=== PATIENT | male | born 1960 | race Caucasian/White ===

== ENCOUNTER → 2019-06-10 09:53 | Outpatient (CLI) | payer OTHER, SELFPAY ==
--- NOTE | 2019-06-10 09:55 | DI.RAD.S_ITS ---
PROCEDURE: XR LUMBAR SPINE 2-3V INDICATIONS: Pain TECHNIQUE: 2 views of the lumbar spine were acquired. COMPARISON: [facility], , -SPINE 2-3 VIEWS, 05/20/2010, 17:41. FINDINGS: Bones: 5 [id number] vertebrae are present. There is normal bony alignment. No vertebral body compression fractures. Severe degenerative changes are present throughout the mid and lower lumbar spine including intervertebral disc space narrowing, endplate sclerosis, osteophytosis, and facet sclerosis. The extensive degenerative disease is increased when compared with the prior film dated 05/20/10. No suspicious bony lesions. Soft tissues: Overlying bowel gas pattern is unremarkable. There are scattered atheromatous calcifications of the abdominal aorta which is increased in extent when compared with the prior study. IMPRESSION: 1. Interval degenerative changes within the lumbar spine when compared with the study from 2009. 2. Interval progression of aortic atherosclerosis when compared with the prior study. Dictated by: Ana Perales M.D. on 06/10/2019 at 13:20 Approved by: Ana Perales M.D. on 06/10/2019 at 13:22
--- NOTE | 2019-06-10 09:55 | DI.RAD.S_ITS ---
PROCEDURE: XR HIP W PEL IF DONE LT MIN 4V INDICATIONS: Pain TECHNIQUE: AP pelvis with lateral view(s) of the bilateral hip(s). COMPARISON: None. FINDINGS: Bones: No fractures or dislocations. Pelvic ring appears intact. No suspicious bony lesions. Soft tissues: The visualized bowel gas pattern is normal. No suspicious soft tissue calcifications. There are scattered atheromatous calcifications. IMPRESSION: No acute radiographic findings. If there is continued pain, followup exam or additional imaging such as MRI or CT could be performed for further assessment. Dictated by: Ana Perales M.D. on 06/10/2019 at 13:22 Approved by: Ana Perales M.D. on 06/10/2019 at 13:22
== END ==
PROVIDERS: PCP Family Medicine; Visit Provider Family Medicine
DX: M54.5 Low back pain (principal); M51.36 Other intervertebral disc degeneration, lumbar region; M25.559 Pain in unspecified hip
CPT/HCPCS: 72100; 73522

== ENCOUNTER → 2019-06-18 17:20 | Outpatient (CLI) | payer OTHER, SELFPAY ==
--- NOTE | 2019-06-18 17:24 | DI.MRI.S_ITS ---
PROCEDURE: MR HEAD/BRAIN WO CON INDICATIONS: Syncope TECHNIQUE: Noncontrast axial T1 spin echo, axial T2 fast spin echo, sagittal and axial FLAIR, coronal T2 fast spin echo, axial gradient echo, axial diffusion and ADC through the brain. COMPARISON: None. FINDINGS: Image quality: Excellent. CSF Spaces: Basal cisterns are patent. No extra-axial fluid collections. Ventricles are normal in size and shape. Brain: No intracranial masses or hemorrhage. Cramer/white matter interface is normal. Brainstem appears normal. Diffusion-weighted images demonstrate no acute ischemic insult. No chronic ischemic insults. Normal intravascular flow voids are present. Skull and face: Calvarium has normal marrow signal. Orbits appear normal. Sinuses: Sinuses and mastoids are clear. IMPRESSION: Normal for age, source of current syncopal symptoms is not seen. Dictated by: Ja Sanchez M.D. on 06/19/2019 at 9:21 Approved by: Ja Sanchez M.D. on 06/19/2019 at 9:22
== END ==
PROVIDERS: PCP Family Medicine; Visit Provider Family Medicine
DX: R55 Syncope and collapse (principal)
CPT/HCPCS: 70551

== ENCOUNTER → 2019-12-08 10:00 | Outpatient (CLI) | payer OTHER, SELFPAY ==
[2019-12-08 11:14] LABS: Blood Urea Nitrogen 18 mg/dL (9-20); Estimated Glomerular Filt Rate > 60.0 mL/min (>60); Magnesium 2.3 mg/dL (1.6-2.3)
== END ==
PROVIDERS: PCP Family Medicine; Visit Provider Family Medicine
DX: I10 Essential (primary) hypertension (principal)
CPT/HCPCS: 36415; 82565; 83735; 84520

== ENCOUNTER 2020-08-02 12:35 | Emergency (ER) | payer OTHER, SELFPAY ==
[2020-08-02 12:44] VITALS: BP 170/95; PULSE 72; RESP 18; TEMP 37; O2SAT 96
[2020-08-02 13:26] VITALS: PULSE 68; RESP 14; O2SAT 98
[2020-08-02 13:30] VITALS: PULSE 63; RESP 18; O2SAT 97
[2020-08-02 13:44] LABS: Add Manual Diff / Slide Review NO; Basophils Absolute Auto 0 /uL (0-100); Basophils Percent Auto 0.4 % (0-2); Eosinophils Absolute Auto 300 /uL (0-450); Eosinophils Percent Auto 4.1 % (2-4); Hematocrit 45.2 % (41-53); Hemoglobin 15.3 g/dL (13.5-17.5); Lymphocytes Absolute Auto 1200 /uL (1100-4500); Lymphocytes Percent Auto 18.3 % (25-40); Mean Corpuscular HGB Conc 33.8 % (30-36); Mean Corpuscular Hemoglobin 31.9 PG (26-34); Mean Corpuscular Volume 94.5 fL (80-100); Monocytes Absolute Auto 400 /uL (0-900); Monocytes Percent Auto 5.6 % (3-14); Neutrophils Absolute Auto 4600 /uL (1500-7000); Neutrophils Percent Auto 71.6 % (50-75); Platelet Count 199 X10^3/uL (150-400); Red Blood Cell Count 4.79 X10^6/uL (4.5-5.9); Red Cell Distribution Width 12.8 % (11.6-14.8); White Blood Cell Count 6.5 X10^3/uL (4.5-11.0)
[2020-08-02 13:54] LABS: Prothrombin Time 11.9 SECONDS (10.1-12.7)
[2020-08-02 13:56] LABS: PTT Partial Thromboplastin Tim 32 SECONDS (26.4-36.2)
[2020-08-02 13:58] LABS: Alanine Aminotransferase 22 IU/L (<50); Albumin 4.8 g/dL (3.5-5.0); Albumin Globulin Ratio 1.4 (1.0-2.8); Alkaline Phosphatase 56 U/L (38-126); Aspartate Aminotransferase 28 IU/L (17-59); BUN Creatinine Ratio 18.6 (6-22); Bilirubin Total 0.6 mg/dL (0.2-1.3); Blood Urea Nitrogen 16 mg/dL (9-20); Calcium 9.9 mg/dL (8.4-10.2); Carbon Dioxide 26 mmol/L (22-32); Chloride 103 mmol/L (98-107); Estimated Glomerular Filt Rate > 60.0 mL/min (>60); Globulin 3.5 g/dL (1.7-4.1); Glucose 89 mg/dL (80-110); HEMOLYSIS < 15 (0-50); Potassium 4.3 mmol/L (3.4-5.1); Sodium 140 mmol/L (137-145); Total Protein 8.3 g/dL (6.3-8.2)
[2020-08-02 14:00] VITALS: PULSE 67; O2SAT 97
--- NOTE | 2020-08-02 14:27 | ED.GIBLEED ---
HPI - GI Bleed General Chief complaint: GI Bleed Stated complaint: Blood in Stool Time Seen by Provider: 08/02/20 13:57 Source: patient Mode of arrival: Ambulatory Limitations: no limitations History of Present Illness HPI Narrative: The patient had bright red blood with a bowel movement prior to arrival here. He describes bright blood on the outside of the formed bowel movement. He did not have constipation. He did not have ongoing bleeding after having the bowel movement. He has no rectal pain. He has a prior history of PUD and upper GI bleed. He is familiar with melena. He has no such concern today. He has no abdominal pain. He denies weakness or dizziness. He does have a prior history of hemorrhoids. Related Data Home Medications Medication Instructions Recorded Confirmed clobetasol 0.05 % topical ointment 1 applictn TOP DAILY PRN 10/21/19 12/08/19 Previous Rx's Medication Instructions Recorded lisinopril 10 mg tablet 20 mg PO DAILY #180 tab 12/08/19 meloxicam 15 mg tablet 15 mg PO DAILY #90 tab 05/31/20 omeprazole 20 mg tablet,delayed 20 mg PO DAILY #90 tab 06/21/20 release zolpidem 12.5 mg tablet,extended 12.5 mg PO BEDTIME PRN #30 tab 06/29/20 release,multiphase Allergies Allergy/AdvReac Type Severity Reaction Status Date / Time latex [LATEX] Allergy Severe ANAPHYLACTIC Verified 08/02/20 12:50 PROLONGED EXPOSURE polyvinyl chloride (PVC) Allergy Unknown SKIN RASH Verified 08/02/20 12:50 [POLYVINYL CHLORIDE (PVC)] W PROLONGED EXPOSURE Review of Systems Review of Systems ROS Unobtainable: All systems reviewed & are unremarkable except as noted in HPI and below Constitutional Constitutional: Denies body ache(s), Denies chills, Denies fatigue and Denies fever(s) ENT Ears, Nose, Mouth, and Throat: Denies dizziness Comments: No complaints Cardiovascular Cardiovascular: Denies chest pain and Denies dyspnea Respiratory Respiratory: Denies cough, Denies dyspnea and Denies wheezing Gastrointestinal Gastrointestinal: Denies abdominal pain, Denies change in bowel habits, Denies diarrhea, Denies nausea and Denies vomiting Comments: GI bleeding as discussed in HPI. Genitourinary Comments: No genital pain. No dysuria or urgency. Musculoskeletal Musculoskeletal: Denies back pain and Denies numbness Integumentary/Breasts Skin/Breast: Denies pruritus, Denies erythema, Denies rash and Denies wounds Neurologic Neurologic: Denies confusion, Denies dizziness and Denies numbness Psychiatric Psychiatric: Denies confusion Endocrine Endocrine: Denies fatigue Allergic/Immunologic Allergic/Immunologic: Denies wheezing Patient History Medical History Carpal tunnel syndrome (Chronic ~1993) Foot pain (Chronic ~2009) Osteoarthritis (Chronic) PUD (peptic ulcer disease) (Acute) Surgical History Anesthesia (Resolved) S/P laparoscopic surgery (Resolved ~08/2014) Family History Father Heart disease Grandfather No problems noted. Social History Smoking Status: Former smoker Smoking Status: Former smoker alcohol intake frequency: 0-2 drinks per day Substance Use Type: marijuana Exam Initial Vital Signs Initial Vital Signs: Vital Signs Temperature 98.6 F 08/02/20 12:44 Pulse Rate 72 08/02/20 12:44 Respiratory Rate 18 08/02/20 12:44 Blood Pressure 170/95 H 08/02/20 12:44 Pulse Oximetry 96 08/02/20 12:44 Const General: cooperative and well developed Nutritional Appearance: well nourished Resp Effort & Inspection: normal respiratory effort and able to speak in complete sentences Auscultation: clear to auscultation bilaterally, no rales, no rhonchi and no wheezes Cardio Rate: regular rate Rhythm: regular rhythm Heart Sounds: S1 normal, S2 normal, no click, no gallops, no murmurs and no rubs Pulses: normal peripheral pulses GI Inspection: non-distended Palpation: soft, no hepatosplenomegaly, No guarding, No pulsatile mass and No tender Auscultation: normal bowel sounds Rectal Exam: fissure (Perianal erythema with 2 shallow fissures. ) Other: No palpable internal hemorrhoids. Prostate is normal. Stool from the rectum is formed and without blood. Course Course Course Narrative: The patient has a perianal dermatitis, likely attributing to 2 shallow fissures. I recommended [id number] antifungal cream after thorough wash insight. I recommend he recheck with his doctor over the next several days. Orders Ordered: ED Orders 08/02/20 13:19 EKG-12 Lead Stat 08/02/20 13:25 Complete Blood Count AUTO DIFF Stat Comprehensive Metabolic Panel Stat Partial Thromboplastin Time Stat Prothrombin Time INR Stat Vital Signs Vital signs: Vital Signs - 8 hr 08/02/20 12:44 08/02/20 13:26 08/02/20 13:30 Temperature 98.6 F Pulse Rate 72 68 63 Respiratory Rate 18 14 18 Blood Pressure 170/95 H Pulse Oximetry 96 98 97 08/02/20 14:00 08/02/20 14:37 08/02/20 14:43 Temperature Pulse Rate 67 74 Respiratory Rate 16 Blood Pressure 156/96 H 156/96 H Pulse Oximetry 97 98 MDM - GI Bleed Lab Data Result diagrams: 08/02/20 13:25 08/02/20 13:25 Labs: Lab Results 08/02/20 08/02/20 08/02/20 Range/Units 13:25 13:25 13:25 WBC 6.5 (4.5-11.0) X10^3/uL RBC 4.79 (4.5-5.9) X10^6/uL Hgb 15.3 (13.5-17.5) g/dL Hct 45.2 (41-53) % MCV 94.5 (80-100) fL MCH 31.9 (26-34) PG MCHC 33.8 (30-36) % RDW 12.8 (11.6-14.8) % Plt Count 199 (150-400) X10^3/uL Neut % (Auto) 71.6 (50-75) % Lymph % (Auto) 18.3 L (25-40) % Williamson % (Auto) 5.6 (3-14) % Eos % (Auto) 4.1 H (2-4) % Baso % (Auto) 0.4 (0-2) % Neut # (Auto) 4600 (8373-0573) /uL Lymph # (Auto) 1200 (1473-0804) /uL Williamson # (Auto) 400 (0-900) /uL Eos # (Auto) 300 (0-450) /uL Baso # (Auto) 0 (0-100) /uL PT 11.9 (10.1-12.7) SECONDS INR 1.0 (0.9-1.3) APTT 32 (26.4-36.2) SECONDS Sodium 140 (137-145) mmol/L Potassium 4.3 (3.4-5.1) mmol/L Chloride 103 (98-107) mmol/L Carbon Dioxide 26 (22-32) mmol/L BUN 16 (9-20) mg/dL Creatinine 0.86 (0.66-1.25) mg/dL Estimated GFR > 60.0 (>60) mL/min BUN/Creatinine Ratio 18.6 (6-22) Glucose 89 (80-110) mg/dL Calcium 9.9 (8.4-10.2) mg/dL Total Bilirubin 0.6 (0.2-1.3) mg/dL AST 28 (17-59) IU/L ALT 22 (<50) IU/L Alkaline Phosphatase 56 (38-126) U/L Total Protein 8.3 H (6.3-8.2) g/dL Albumin 4.8 (3.5-5.0) g/dL Globulin 3.5 (1.7-4.1) g/dL Albumin/Globulin Ratio 1.4 (1.0-2.8) Urine Dip Bedside Urine Glucose Negative Bedside Urine Bilirubin - Negative Bedside Urine Ketone - Negative Urine Specific [place] 1.005 Bedside Urine Occult Blood - Negative Bedside Urine pH 6.5 Bedside Urine Protein - Negative Bedside Urine Urobilinogen - Negative Bedside Urine Nitrite - Negative Bedside Urine Leukocytes - Negative Esterase Discharge Plan Departure Patient Disposition: Home Clinical Impression: Perianal dermatitis, Anal fissure Discharge Date/Time: 08/02/20 14:45 Instructions: Anal Fissure Activity Restrictions/Additional Instructions: You actually have 2 shallow anal fissures, but she also have a area of inflammation the perianal region. Clotrimazole is an [id number]-zophhea antifungal cream. Apply this 2 times daily after cleaning the area thoroughly. You may stop the medication after confident the site has improved. Follow-up with your doctor in about 10 days to re-evaluate, return the ER if he of substantial increased bleeding. Prescriptions: No Action meloxicam 15 mg tablet 15 mg PO DAILY Qty: 90 RF: 1 omeprazole 20 mg tablet,delayed release (DR/EC) 20 mg PO DAILY Qty: 90 RF: 3 zolpidem 12.5 mg tablet,ext release multiphase 12.5 mg PO BEDTIME PRN (Reason: insomnia) Qty: 30 RF: 1 clobetasol 0.05 % ointment 1 applictn TOP DAILY PRN (Reason: skin irritation) RF: 0 lisinopril 10 mg tablet 20 mg PO DAILY Qty: 180 RF: 3 Referrals: Dixon Hancock MD [Primary Care Provider] -
[2020-08-02 14:37] VITALS: BP 156/96
[2020-08-02 14:43] VITALS: BP 156/96; PULSE 74; RESP 16; O2SAT 98
== END 2020-08-02 14:45 | disposition home or self-care (01) ==
PROVIDERS: Emergency Provider Emergency Medicine; PCP Family Medicine
DX: K60.2 Anal fissure, unspecified (principal); L30.8 Other specified dermatitis
CPT/HCPCS: 36415; 80053; 81003; 85025; 85610; 85730; 93005; 93010; 99283; 99284

== ENCOUNTER → 2020-10-20 16:43 | Outpatient (CLI) | payer OTHER, SELFPAY ==
--- NOTE | 2020-11-09 07:57 | PM.CARDMON.1 ---
Licensed Massage Therapist Report Referral & Results Date Patient Seen: 10/20/20 Requesting provider: Dixon Hancock Indication: Syncope Duration of monitoring (days): 6 Diary information: There were no patient triggered events or diary entries for review Data: Minimum heart rate identified was 46 beats per minute at 00:31 on 10/23/2020 Maximum sinus heart rate was 143 beats per minute at 08:57 on 10/26/2020 Maximum overall heart rate was 200 beats per minute at 13:16 on 10/22/2020 during a run of SVT that was 4 beats in duration Less than 1% of identified beats or either ventricular supraventricular ectopic in origin There was 1 run of nonsustained monomorphic ventricular tachycardia that was 4 beats in duration at a rate of 182 beats per minute There 6 runs of SVT/atrial tachycardia the fastest being the 4 beat run at 200 beats per minute as above, the longest lasting 25.3 seconds at a rate of 107 beats per minute, which suggest more atrial tachycardia than true SVT No pauses Impression: Patient with various minor dysrhythmias as above including a single 4 beat run of nonsustained ventricular tachycardia. Also very short runs of SVT. No clear etiology for syncope identified on this study although there were no patient events to correlate with any potential dysrhythmia. Clinical correlation suggested
== END ==
PROVIDERS: Family Provider Family Medicine; PCP Family Medicine; Referring Provider Family Medicine; Visit Provider Family Medicine
DX: R55 Syncope and collapse (principal)
CPT/HCPCS: 0296T; 0298T

== ENCOUNTER → 2020-10-28 12:51 | Outpatient (CLI) | payer OTHER, SELFPAY ==
--- NOTE | 2020-10-28 12:54 | DI.MRI.S_ITS ---
PROCEDURE: MR LUMBAR SPINE WO CON INDICATIONS: increasing low back pain, leg numbness and tingling TECHNIQUE: Noncontrast sagittal T1 spin echo and T2 fast echo, sagittal STIR, axial T1 and T2 fast spin echo through the lumbar spine. In cases with scoliosis, additional coronal T2 fast spin echo may be performed. COMPARISON: [facility], MR, L-SPINE WITHOUT CONTRAST, 07/31/2014, 19:38. [facility], CR, XR LUMBAR SPINE 2-3V, 06/10/2019, 9:57. FINDINGS: Image quality: Excellent. Alignment and Curvature: There is normal bony alignment. Mild convex right curvature of the thoracolumbar spine is stable compared to prior plain film radiographs. Bone Marrow: Reactive endplate changes noted adjacent to the L3-L4, L4-L5 and L5-S1 discs. No acute vertebral body compression fractures. Spinal Cord: Conus medullaris terminates at the L1 level. Visualized cord demonstrates normal signal and size. Paraspinous Soft Tissues: No paravertebral masses. L1-L2: Loss of disc signal. Mild, diffuse disc bulge. Mild narrowing of the central canal. Mild bilateral neural foraminal narrowing. No neural compression. L2-L3: Loss of disc signal. Mild, diffuse disc bulge. Mild bilateral facet hypertrophy. Mild to moderate narrowing of the central canal. Right foraminal disc protrusion. Severe right neural foraminal narrowing secondary to disc protrusion with compression of the exiting right L2 nerve root. Mild left neural foraminal narrowing. L3-L4: Loss disc signal. Mild, diffuse disc bulge. Mild bilateral facet hypertrophy. Mild to moderate narrowing of the central canal. Moderate bilateral neural foraminal narrowing. No neural compression. Fissures noted in the posterior and anterior annulus. L4-L5: Loss of disc signal and height. Moderate, diffuse disc bulge. Mild bilateral facet hypertrophy. Moderate narrowing of the central canal. Right foraminal disc protrusion. Severe right neural foraminal narrowing with compression of the exiting right L4 nerve root. Moderate left neural foraminal narrowing. Fissures noted in the posterior and anterior annulus. L5-S1: Loss of disc signal and height. Mild, diffuse disc bulge. Mild bilateral facet hypertrophy. Mild narrowing of the central canal. Moderate right and mild left neural foraminal narrowing. No neural compression. Fissures noted in the posterior annulus. IMPRESSION: 1. Multilevel degenerative disc disease. 2. Multilevel facet arthropathy. 3. Moderate L4-L5 central canal narrowing. 4. Severe right L2-L3 and L4-L5 neural foraminal narrowing with compression of the exiting right L2 nerve root in the exiting right L4 nerve root. 5. L3-L4, L4-L5 and L5-S1 disc annulus fissures. Dictated by: Araceli Sorto MD, PhD on 10/28/2020 at 16:47 Approved by: Araceli Sorto MD, PhD on 10/28/2020 at 17:18
--- NOTE | 2020-10-28 12:54 | DI.US.S_ITS ---
PROCEDURE: US CAROTID DOPPLER BI INDICATIONS: Syncope TECHNIQUE: Color and pulse Doppler interrogation was performed of both carotid systems, with image documentation and velocity measurements. COMPARISON: None. FINDINGS: Stenosis calculations are based on SRU (Society of Radiologists in Ultrasound) criteria. Right side: Brachial blood pressure: 127/78 mm Hg. Common carotid artery peak systolic velocity: 127 cm/sec (prior 105 cm/s). Internal carotid artery peak systolic velocity: 114 cm/sec (prior 101 cm/s). Internal carotid artery end diastolic velocity: 31 cm/sec (prior 20 cm/s). External carotid artery peak systolic velocity: 169 cm/sec (prior 131 cm/s). ICA/CCA peak systolic ratio: 0.9 (prior 0.96). Cramer scale imaging description: Mild atherosclerotic changes are seen. Percent internal carotid artery stenosis: Less than 50% by velocity criteria Vertebral artery: Flow direction is antegrade. Left side: Brachial blood pressure: 131/76 mm Hg. Common carotid artery peak systolic velocity: 189 cm/sec (prior 128 cm/s). Internal carotid artery peak systolic velocity: 131 cm/sec (prior 105 cm/s). Internal carotid artery end diastolic velocity: 33 cm/sec (prior 35 cm/s). External carotid artery peak systolic velocity: 198 cm/sec (prior 117 cm/s). ICA/CCA peak systolic ratio: 0.7 (prior 0.82). Cramer scale imaging description: Moderate atherosclerotic changes are seen. Percent internal carotid artery stenosis: 50-69% by velocity criteria Vertebral artery: Flow direction is antegrade. IMPRESSION: By velocity criteria, there is a moderate stenosis (between 50 and 69% stenosis) within the left proximal internal carotid artery. The true degree of stenosis is felt most likely to be at the lower end of this range. There is also a greater than 50% stenosis involving the origin of the left external carotid artery by velocity criteria. Dictated by: Roderick Barriga M.D. on 10/28/2020 at 14:13 Approved by: Roderick Barriga M.D. on 10/28/2020 at 14:15
--- NOTE | 2020-10-28 12:54 | DI.MRI.S_ITS ---
PROCEDURE: MR CERVICAL SPINE WO CON INDICATIONS: neck pain TECHNIQUE: Noncontrast sagittal T1 spin echo and T2 fast spin echo, sagittal STIR, foraminal oblique sagittal T2 fast spin echo, and axial gradient echo or T2 fast spin echo through the cervical spine. COMPARISON: None. FINDINGS: Image quality: Excellent. Alignment and Curvature: There is trace retrolisthesis of C4 on C5. Bone Marrow: Marrow demonstrates normal overall signal. Spinal Cord: Visualized spinal cord has normal size and signal. No cerebellar tonsillar herniation. Paraspinous Soft Tissues: No paravertebral masses. Prevertebral soft tissues are normal in thickness. Discs: Moderate desiccation is present throughout the cervical spine. C2-C3: No disc bulge, spinal stenosis or foraminal narrowing. C3-C4: Mild disc bulge with posterior central/right paracentral protrusion. There is indentation of the anterior thecal sac as well as minimal indentation of the anterior cord. Mild left and minimal right foraminal narrowing with uncovertebral hypertrophy. C4-C5: Mild disc bulge with moderate spinal stenosis. [id number] bilateral foraminal narrowing with uncovertebral hypertrophy. C5-C6: Mild disc bulge with moderate to severe spinal stenosis. Moderate to severe bilateral foraminal narrowing, left greater than right with uncovertebral hypertrophy. C6-C7: Mild disc bulge without spinal stenosis. [id number] left and mild right foraminal narrowing with uncovertebral hypertrophy. C7-T1: No disc bulge, spinal stenosis or foraminal narrowing. IMPRESSION: 1. Multilevel foraminal narrowing most notable at C5-6 secondary to uncovertebral arthropathy. 2. Multilevel spinal stenosis most notable at C4-5 and C5-6 secondary to disc bulge. Dictated by: Dara Trujillo M.D. on 10/28/2020 at 13:56 Approved by: Dara Trujillo M.D. on 10/28/2020 at 14:01
--- NOTE | 2020-10-28 12:54 | DI.ECHO.S_ITS ---
[facility] +---------+ : : [address] [place] : : : : [id number] : : : : Phone: [phone] Echocardiogram Report + + :Name: PREETHI MCCARTHY Study Date: 10/28/2020 Height: 74 in : :[facility] Weight: 211 lb : : Gender: Male BSA: 2.2 m2 : :: 1960 Age: 60 yrs BP: 127/78 mmHg: :Reason For Study: SYNCOPE : :Ordering Physician: LINA FLORESPerformed By: Lety Ruiz : :Referring: LINA FLORES : + + Interpretation Summary The left ventricle is normal in size and wall thickness. Left ventricular systolic function appears normal without focal wall motion abnormalities. The ejection fraction is estimated to be 60-65%. Diastolic parameters suggest probable normal left ventricular diastolic function and normal filling pressures. The right ventricle is normal in size and function. Pulmonary artery pressures cannot be estimated because of the lack of a measurable TR jet velocity but the IVC suggests a CVP of around 3 mmHg. The left atrial size is normal. Right atrial size is normal. There is no significant valvular heart disease. The aortic root is normal size. Procedure: A two-dimensional transthoracic echocardiogram with color flow and Doppler was performed. The study quality was technically adequate. The patient had an echocardiogram, but there is no comparison study available. The patient was in sinus rhythm with heart rates between 69-74 bpm during the exam. Left Ventricle: The left ventricle is normal in size and wall thickness. Left ventricular systolic function appears normal without focal wall motion abnormalities. The ejection fraction is estimated to be 60-65%. Diastolic parameters suggest probable normal left ventricular diastolic function and normal filling pressures. Right Ventricle: The right ventricle is normal in size and function. Atria: The left atrial size is normal. Right atrial size is normal. There is no Doppler evidence for an interatrial shunt. Mitral Valve: The mitral valve is normal in structure and function. There is trace mitral regurgitation. Aortic Valve: The aortic valve is trileaflet. The aortic valve opens well. There is no aortic valve stenosis. No aortic regurgitation is present. Tricuspid Valve: The tricuspid valve is normal in structure and function. There is trace tricuspid regurgitation. Pulmonary artery pressures cannot be estimated because of the lack of a measurable TR jet velocity but the IVC suggests a CVP of around 3 mmHg. Pulmonic Valve: The pulmonic valve leaflets are thin and pliable; valve motion is normal. There is no pulmonic valvular regurgitation. There is no significant valvular heart disease. Great Vessels: The aortic root is normal size. The ascending aorta is at the upper limits of normal in size. The IVC is of normal diameter and collapses greater than 50% with a sniff. This suggests a low right atrial pressure of 3 mm Hg. Pericardium/ Pleura There is no pericardial effusion. There is no pleural effusion. MMode/2D Measurements & Calculations LVIDd: 5.2 cm LVOT diam: 2.2 cm LVIDs: 3.3 cm Ao root diam: 3.5 cm FS: 36.7 % asc Aorta Diam: 3.4 cm EPSS: 1.3 cm Ao Arch Diam (Prox Trans): 3.0 cm IVSd: 0.86 cm LVPWd: 0.97 cm LV garcia. diameter/BSA (cm/m^2): 2.3 LV sys. diameter/BSA (cm/m^2): 1.5 LA A2 area: 16.5 cm2 RA long axis: 5.0 cm LA A4 area: 14.0 cm2 RA area: 15.2 cm2 LA length (vol): 4.6 cm RA vol: 39.5 ml LA vol: 43.0 ml RA : 17.8 ml/m2 LA vol index: 19.4 ml/m2 IVC diam: 0.61 cm RVD1 (basal): 3.2 cm TAPSE: 2.1 cm Doppler Measurements & Calculations Ao V2 max: 106.4 cm/sec LVOT Max Tevin: 102.6 cm/sec Ao V2 mean: 80.5 cm/sec LV V1 max P.2 mmHg Ao max P.5 mmHg LV V1 VTI: 20.4 cm Ao mean P.7 mmHg CHELSEA(I,D): 3.5 cm2 Ao V2 VTI: 21.7 cm CHELSEA(V,D): 3.6 cm2 sev ratio: 0.94 CHELSEA indexed to BSA (cm^2/m^2): 1.6 MV E max tevin: 81.4 cm/sec PA V2 max: 57.3 cm/sec MV A max tevin: 86.5 cm/sec PA V2 mean: 38.9 cm/sec MV E/A: 0.94 PA mean P.68 mmHg Med Peak E' Tevin: 8.0 cm/sec PA pr(Accel): 37.9 mmHg E/E' med: 10.2 Lat Peak E' Tevin: 10.5 cm/sec E/E' lat: 7.8 E/e' average: 9.0 MV dec time: 0.20 sec SV(OT): 76.5 ml Reading Physician:04:28 PM
== END ==
PROVIDERS: Family Provider Family Medicine; PCP Family Medicine; Referring Provider Family Medicine; Visit Provider Family Medicine
DX: R55 Syncope and collapse (principal); M54.5 Low back pain; M48.02 Spinal stenosis, cervical region; M47.812 Spondylosis without myelopathy or radiculopathy, cervical region; M50.221 Other cervical disc displacement at C4-C5 level; M51.36 Other intervertebral disc degeneration, lumbar region; M47.816 Spondylosis without myelopathy or radiculopathy, lumbar region; M48.061 Spinal stenosis, lumbar region without neurogenic claudication
CPT/HCPCS: 72141; 72148; 93306; 93880

== ENCOUNTER 2021-06-25 15:16 | Inpatient (IN) | payer OTHER, SELFPAY ==
[2021-06-25] VITALS (11 sets, daily range): BP systolic 130–159; BP diastolic 83–100; PULSE 77–104; RESP 16–23; TEMP 36.2–36.7; O2SAT 97–100; BMI 27.6; BMI 26.6
--- NOTE | 2021-06-25 16:03 | ED.GIBLEED ---
HPI - GI Bleed General Chief complaint: GI Bleed Stated complaint: Blood in Stool Time Seen by Provider: 06/25/21 15:32 History of Present Illness HPI Narrative: Male nonsmoker with history of high blood pressure, rectal bleeding prior duodenal ulcer presents with a chief complaint of a few days of difficulty with bowel movements followed by significant epigastric pain. He was on the toilet today trying to have a bowel movement and he finally did and it was black and tarry, dark and bloody. He had a brief syncopal episode while straining in presents to the ER under the circumstances. He denies any significant alcohol use. He denies any heavy use of NSAIDs. He is feeling fatigued and a bit lightheaded. He denies any shortness of breath, fever or chills Related Data Home Medications Medication Instructions Recorded Confirmed lisinopril 10 mg tablet 20 mg PO DAILY 06/25/21 06/25/21 pregabalin 225 mg capsule 225 mg PO TID 06/25/21 06/25/21 Previous Rx's Medication Instructions Recorded meloxicam 15 mg tablet 15 mg PO DAILY #90 tab 12/06/20 zolpidem 12.5 mg tablet,extended 12.5 mg PO BEDTIME PRN #90 tab 05/13/21 release,multiphase omeprazole 20 mg tablet,delayed 20 mg PO DAILY #90 tab 06/17/21 release Allergies Allergy/AdvReac Type Severity Reaction Status Date / Time latex [LATEX] Allergy Severe ANAPHYLACTIC Verified 02/11/21 16:03 PROLONGED EXPOSURE polyvinyl chloride (PVC) Allergy Unknown SKIN RASH Verified 02/11/21 16:03 [POLYVINYL CHLORIDE (PVC)] W PROLONGED EXPOSURE Review of Systems Review of Systems Narrative: GENERAL: See HP HEENT: Denies sinus pain, ear pain, sore throat, difficulty swallowing, dizziness. RESPIRATORY: Denies dyspnea, cough, wheezing, hemoptysis, sputum. CARDIOVASCULAR: Denies chest pain, palpitations, orthopnea, edema, GASTROINTESTINAL: See HPI : Denies dysuria, frequency, incontinence, hematuria, urinary retention. MUSCULOSKELETAL: denies weakness, joint pain, or bony pain SKIN: Denies rash, skin lesions, or other NEUROLOGIC: Denies weakness, headache, numbness, change in speech, confusion, seizures, incoordination. PSYCHIATRIC: No concerning psychosocial issues. 12 point review of systems is negative except for those stated above Patient History Medical History Carpal tunnel syndrome (~1993) Disc degeneration, lumbar Foot pain (~2009) Osteoarthritis Osteoarthritis of hand, left Other spondylosis with radiculopathy, lumbar region PUD (peptic ulcer disease) Rosacea Surgical History Anesthesia S/P laparoscopic surgery (~08/2014) Family History Father Heart disease Grandfather No problems noted. Social History Smoking Status: Former smoker Smoking Status: Former smoker alcohol intake frequency: holidays/special occasions only Substance Use Type: marijuana Exam Narrative Exam Narrative: GENERAL: [61] year old patient appears stated age. Well-developed patient, in mild distress. HEAD: Atraumatic. Normocephalic. EYES: Pupils equal round and reactive. Extraocular motions intact. No scleral icterus. No injection or drainage. ENT: Nose without bleeding, purulent drainage. Throat without erythema, tonsillar hypertrophy or exudate. Airway patent. NECK: Trachea midline. Non tender CARDIOVASCULAR: Regular rate and rhythm without murmurs, gallops, or rubs. RESPIRATORY: Clear to auscultation. Breath sounds equal bilaterally. No wheezes, rales, or rhonchi. GASTROINTESTINAL: Abdomen soft, tender in the epigastrium, nondistended. EXTREMITIES: No edema or joint tenderness. BACK: Nontender without deformity or crepitance. No flank tenderness. NEURO: AOx3. SKIN: No rash or erythema of visible areas Initial Vital Signs Initial Vital Signs: Vital Signs Temperature 97.1 F L 06/25/21 15:29 Pulse Rate 104 H 06/25/21 15:29 Respiratory Rate 16 06/25/21 15:29 Blood Pressure 134/91 H 06/25/21 15:29 Pulse Oximetry 99 06/25/21 15:29 Course Orders Ordered: ED Orders 06/25/21 15:55 Complete Blood Count AUTO DIFF Stat Comprehensive Metabolic Panel Stat cardiac panel [Troponin & CK Cardiac Panel] Stat 06/25/21 17:15 COVID19 - ADMIT (DIRECTOR EQUIPMENT swab/PCR) Stat Discontinued Medications Pantoprazole Sodium (Pantoprazole 40 Mg Vial) 80 mg IV NOW ONE Stop: 06/25/21 17:20 Last Admin: 06/25/21 17:24 Dose: 80 mg Documented by: LOURDES Consultations Consultation #1: Discussed with on-call General surgery Dr. Pollard, she is happy to provide consultation for the patient and agrees with our plan Consultation #2: Hospitalist happy to accept Vital Signs Vital signs: Vital Signs - 8 hr 06/25/21 15:29 06/25/21 15:58 06/25/21 16:00 Temperature 97.1 F L Pulse Rate 104 H 92 H 96 H Respiratory Rate 16 21 Blood Pressure 134/91 H 159/100 H Pulse Oximetry 99 99 99 06/25/21 16:02 06/25/21 16:30 06/25/21 17:00 Temperature Pulse Rate 93 H 87 81 Respiratory Rate 20 18 23 Blood Pressure 151/97 H 130/83 Pulse Oximetry 99 97 98 06/25/21 17:01 06/25/21 17:30 06/25/21 18:00 Temperature Pulse Rate 77 85 86 Respiratory Rate 23 22 19 Blood Pressure 149/92 H 143/90 H 151/90 H Pulse Oximetry 98 98 99 MDM - GI Bleed Lab Data Result diagrams: 06/25/21 15:55 06/25/21 15:55 Labs: Lab Results 06/25/21 06/25/21 06/25/21 Range/Units 15:55 15:55 15:55 WBC 13.5 H (4.5-11.0) X10^3/uL RBC 4.16 L (4.5-5.9) X10^6/uL Hgb 13.3 L (13.5-17.5) g/dL Hct 39.5 L (41-53) % MCV 94.8 (80-100) fL MCH 31.9 (26-34) PG MCHC 33.6 (30-36) % RDW 12.7 (11.6-14.8) % Plt Count 218 (150-400) X10^3/uL Neut % (Auto) 80.6 H (50-75) % Lymph % (Auto) 9.9 L (25-40) % [place] % (Auto) 8.9 (3-14) % Eos % (Auto) 0.4 L (2-4) % Baso % (Auto) 0.2 (0-2) % Neut # (Auto) 93189 H (6855-5013) /uL Lymph # (Auto) 1300 (4408-5650) /uL [place] # (Auto) 1200 H (0-900) /uL Eos # (Auto) 100 (0-450) /uL Baso # (Auto) 0 (0-100) /uL Sodium 138 (137-145) mmol/L Potassium 4.4 (3.4-5.1) mmol/L Chloride 105 (98-107) mmol/L Carbon Dioxide 25 (22-32) mmol/L BUN 36 H (9-20) mg/dL Creatinine 0.87 (0.66-1.25) mg/dL Estimated GFR > 60.0 (>60) mL/min BUN/Creatinine Ratio 41.4 H (6-22) Glucose 122 H (80-110) mg/dL Calcium 10.9 H (8.4-10.2) mg/dL Total Bilirubin 0.8 (0.2-1.3) mg/dL AST 19 (17-59) IU/L ALT 16 (<50) IU/L Alkaline Phosphatase 45 (38-126) U/L Total Creatine Kinase 77 (55-170) U/L CK-MB (CK-2) TNP CK-MB (CK-2) Rel Index TNP Troponin I < 0.012 (0.01-0.034) ng/mL Total Protein 7.1 (6.3-8.2) g/dL Albumin 4.1 (3.5-5.0) g/dL Globulin 3.0 (1.7-4.1) g/dL Albumin/Globulin Ratio 1.4 (1.0-2.8) SARS-CoV-2 (PCR) (Negative) 06/25/21 Range/Units 17:15 WBC (4.5-11.0) X10^3/uL RBC (4.5-5.9) X10^6/uL Hgb (13.5-17.5) g/dL Hct (41-53) % MCV (80-100) fL MCH (26-34) PG MCHC (30-36) % RDW (11.6-14.8) % Plt Count (150-400) X10^3/uL Neut % (Auto) (50-75) % Lymph % (Auto) (25-40) % [place] % (Auto) (3-14) % Eos % (Auto) (2-4) % Baso % (Auto) (0-2) % Neut # (Auto) (4688-8908) /uL Lymph # (Auto) (6066-4077) /uL [place] # (Auto) (0-900) /uL Eos # (Auto) (0-450) /uL Baso # (Auto) (0-100) /uL Sodium (137-145) mmol/L Potassium (3.4-5.1) mmol/L Chloride (98-107) mmol/L Carbon Dioxide (22-32) mmol/L BUN (9-20) mg/dL Creatinine (0.66-1.25) mg/dL Estimated GFR (>60) mL/min BUN/Creatinine Ratio (6-22) Glucose (80-110) mg/dL Calcium (8.4-10.2) mg/dL Total Bilirubin (0.2-1.3) mg/dL AST (17-59) IU/L ALT (<50) IU/L Alkaline Phosphatase (38-126) U/L Total Creatine Kinase (55-170) U/L CK-MB (CK-2) CK-MB (CK-2) Rel Index Troponin I (0.01-0.034) ng/mL Total Protein (6.3-8.2) g/dL Albumin (3.5-5.0) g/dL Globulin (1.7-4.1) g/dL Albumin/Globulin Ratio (1.0-2.8) SARS-CoV-2 (PCR) Negative (Negative) MDM Narrative Medical decision making narrative: Patient presents with epigastric pain, very concerning bowel movements involving a large amount of bright red blood as well as melenic type stool followed by syncopal episode. Patient has a known history of duodenal ulcer and a history of NSAIDs. Vital signs here have been stable and patient's initial H&H is unremarkable though patient has high likelihood of potential for rapid deterioration and will require admission for further evaluation and stabilization of his condition. Discharge Plan Departure Patient Disposition: Admitted as Observation Clinical Impression: Acute GI bleeding Admit Date/Time: 06/25/21 18:16 Admit Provider: Mack Patino
[2021-06-25 16:22] LABS: Add Manual Diff / Slide Review NO; Basophils Absolute Auto 0 /uL (0-100); Basophils Percent Auto 0.2 % (0-2); Eosinophils Absolute Auto 100 /uL (0-450); Eosinophils Percent Auto 0.4 % (2-4); Hematocrit 39.5 % (41-53); Hemoglobin 13.3 g/dL (13.5-17.5); Lymphocytes Absolute Auto 1300 /uL (1100-4500); Lymphocytes Percent Auto 9.9 % (25-40); Mean Corpuscular HGB Conc 33.6 % (30-36); Mean Corpuscular Hemoglobin 31.9 PG (26-34); Mean Corpuscular Volume 94.8 fL (80-100); Monocytes Absolute Auto 1200 /uL (0-900); Monocytes Percent Auto 8.9 % (3-14); Neutrophils Absolute Auto 10900 /uL (1500-7000); Neutrophils Percent Auto 80.6 % (50-75); Platelet Count 218 X10^3/uL (150-400); Red Blood Cell Count 4.16 X10^6/uL (4.5-5.9); Red Cell Distribution Width 12.7 % (11.6-14.8); White Blood Cell Count 13.5 X10^3/uL (4.5-11.0)
[2021-06-25 16:27] LABS: Alanine Aminotransferase 16 IU/L (<50); Albumin 4.1 g/dL (3.5-5.0); Albumin Globulin Ratio 1.4 (1.0-2.8); Alkaline Phosphatase 45 U/L (38-126); Aspartate Aminotransferase 19 IU/L (17-59); BUN Creatinine Ratio 41.4 (6-22); Bilirubin Total 0.8 mg/dL (0.2-1.3); Blood Urea Nitrogen 36 mg/dL (9-20); Calcium 10.9 mg/dL (8.4-10.2); Carbon Dioxide 25 mmol/L (22-32); Chloride 105 mmol/L (98-107); Estimated Glomerular Filt Rate > 60.0 mL/min (>60); Glucose 122 mg/dL (80-110); HEMOLYSIS < 15 (0-50); Potassium 4.4 mmol/L (3.4-5.1); Sodium 138 mmol/L (137-145); Total Protein 7.1 g/dL (6.3-8.2)
[2021-06-25 17:14] LABS: Creatine Kinase 77 U/L (55-170)
[2021-06-25] MEDS: PANTOPRAZOLE 40 MG VIAL 80 MG IV (17:24)
[2021-06-25 17:27] LABS: Troponin I < 0.012 ng/mL (0.01-0.034)
[2021-06-25 18:05] LABS: COVID19 - ADMIT (NP swab/PCR) Negative (Negative)
[2021-06-25 20:47] LABS: Procalcitonin 0.11 ng/mL (<0.5)
[2021-06-25 21:03] LABS: INR 1.2 (0.9-1.3); Prothrombin Time 13.4 SECONDS (10.1-12.7)
[2021-06-25] MEDS: PEG3350/SOD SULF,BICARB,CL/KCL 4,000 ML SOLUTION 2000 ML PO (21:34)
[2021-06-25] MEDS: SODIUM CHLORIDE 0.9% 1,000 ML 200 ML IV (21:37)
--- NOTE | 2021-06-25 21:47 | PM.HP.1 ---
History of Present Illness History of Present Illness Date Patient Seen: 06/25/21 Time Patient Seen: 21:40 Chief complaint: Syncope and GIB Narrative: Camacho Martin is a pleasant 61 y.o. 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 He has been having a hard time sleeping due to having pain in his mid-epigastric area. Last night he passed out and fell off othe toilet, he woke up and returned to bed. At 4:30 am, he woke up again and had a bloody bowel movement for which he took a photo of it with his phone. He went to clean up his first bowel movement and noted he had soiled against his wall and that it was also bloody. He states he is sweating, and has continued mild epigastric pain. He denies shortness of breath, chest pain, abdominal cramping, nausea or vomiting, or constipation. He states 10 years ago, he had a similar presentation and went to [facility]. He stated they transferred him to [facility] in [place] because he had dangerously become anemic. They performed 2 endoscopies and one colonoscopy when they located the ulcer below the duodenal bulb. 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 General surgery was consulted on in the emergency department and they plan to see the patient tomorrow. Patient is afebrile, blood pressure 151/90, heart rate 86, respiratory rate 19, oxygen saturation 99% on room air, he weighs 94 point 3 kg with a BMI of 26.6. His WBC is mildly elevated at 13.5, RBC 4.16, hemoglobin and hematocrit are 13.3 and 39.5 respectively which is lower than his baseline, platelet count is 218, he does have a left shift of 10,900, BUN is 36 with a normal creatinine, glucose 122, calcium 10.9, procalcitonin is within normal limits, and COVID-19 PCR is negative. He is type O positive. Patient History Medical History Carpal tunnel syndrome (~1993) Disc degeneration, lumbar Foot pain (~2009) History of duodenal ulcer NSAID long-term use Osteoarthritis Osteoarthritis of hand, left Other spondylosis with radiculopathy, lumbar region PUD (peptic ulcer disease) Rosacea Syncope Surgical History Anesthesia History of colonoscopy S/P laparoscopic surgery (~08/2014) Family & Social History Family History Father Heart disease Sjogren's disease Grandfather No problems noted. Mother Alive and well Sister Sjogren's disease Brother Alive and well Other Congestive heart failure Social History: household members spouse Prior Living Arrangements House Safety & Behavioral: Feels Safe in Current Yes Environment Been Physically Hurt or No Threatened By a Person Suicidal Ideation Description None Suicide Plan Description No Plan Tobacco & Substance use: Smoking Status Former smoker alcohol intake frequency holiday/special occasion Substance Use Type marijuana Meds Home Medications and Allergies Home Medications Medication Instructions Recorded Confirmed Type meloxicam 15 mg tablet 15 mg PO DAILY #90 tab 12/06/20 06/25/21 Rx zolpidem 12.5 mg tablet,extended 12.5 mg PO BEDTIME PRN #90 tab 05/13/21 06/25/21 Rx release,multiphase omeprazole 20 mg tablet,delayed 20 mg PO DAILY #90 tab 06/17/21 06/25/21 Rx release lisinopril 10 mg tablet 20 mg PO DAILY 06/25/21 06/25/21 History pregabalin 225 mg capsule 225 mg PO TID 06/25/21 06/25/21 History Allergies Allergy/AdvReac Type Severity Reaction Status Date / Time latex [LATEX] Allergy Severe ANAPHYLACTIC Verified 02/11/21 16:03 PROLONGED EXPOSURE polyvinyl chloride (PVC) Allergy Unknown SKIN RASH Verified 02/11/21 16:03 [POLYVINYL CHLORIDE (PVC)] W PROLONGED EXPOSURE Review of Systems Review of Systems ROS: Yes All systems reviewed with the patient and are negative except as otherwise documented Exam Vital Signs (past 8 hours): - 06/25/21 15:29 06/25/21 15:58 06/25/21 16:00 Temperature 97.1 F L Pulse Rate 104 H 92 H 96 H Respiratory Rate 16 21 Blood Pressure 134/91 H 159/100 H Pulse Oximetry 99 99 99 06/25/21 16:02 06/25/21 16:30 06/25/21 17:00 Temperature Pulse Rate 93 H 87 81 Respiratory Rate 20 18 23 Blood Pressure 151/97 H 130/83 Pulse Oximetry 99 97 98 06/25/21 17:01 06/25/21 17:30 06/25/21 18:00 Temperature Pulse Rate 77 85 86 Respiratory Rate 23 22 19 Blood Pressure 149/92 H 143/90 H 151/90 H Pulse Oximetry 98 98 99 Oxygen Delivery Method Room Air Narrative Exam Narrative: Gen: Alert, oriented, well-developed 61 y.o. male, NAD HEENT: normocephalic, atraumatic, conjunctiva clear, sclera non-icteric, oral mucosa pink and moist Neck: supple, full ROM, no JVD, trachea is midline Resp: Lungs CTA, non-labored breathing CV: RRR, no murmur or rubs Abd: tender below zyphoid process, soft, normoactive BTs Skin: no lesions or rashes, dry and intact Neuro: Alert and oriented X 4 w/no focal deficits. Speech clear and coherent. Extremities: moves all 4 extremities, is ambulatory, negative Jon?s sign Psyche: pleasant, normal mood and affect. Objective Labs Result Diagrams: 06/25/21 15:55 06/25/21 15:55 Labs: Laboratory Results - last 24 hr 06/25/21 06/25/21 06/25/21 15:55 15:55 15:55 WBC 13.5 H RBC 4.16 L Hgb 13.3 L Hct 39.5 L MCV 94.8 MCH 31.9 MCHC 33.6 RDW 12.7 Plt Count 218 Neut % (Auto) 80.6 H Lymph % (Auto) 9.9 L [place] % (Auto) 8.9 Eos % (Auto) 0.4 L Baso % (Auto) 0.2 Neut # (Auto) 00831 H Lymph # (Auto) 1300 [place] # (Auto) 1200 H Eos # (Auto) 100 Baso # (Auto) 0 PT INR Sodium 138 Potassium 4.4 Chloride 105 Carbon Dioxide 25 BUN 36 H Creatinine 0.87 Estimated GFR > 60.0 BUN/Creatinine Ratio 41.4 H Glucose 122 H Calcium 10.9 H Total Bilirubin 0.8 AST 19 ALT 16 Alkaline Phosphatase 45 Total Creatine Kinase 77 CK-MB (CK-2) TNP CK-MB (CK-2) Rel Index TNP Troponin I < 0.012 Total Protein 7.1 Albumin 4.1 Globulin 3.0 Albumin/Globulin Ratio 1.4 Procalcitonin SARS-CoV-2 (PCR) Blood Type Antibody Screen 06/25/21 06/25/21 06/25/21 15:55 17:15 20:40 WBC RBC Hgb Hct MCV MCH MCHC RDW Plt Count Neut % (Auto) Lymph % (Auto) [place] % (Auto) Eos % (Auto) Baso % (Auto) Neut # (Auto) Lymph # (Auto) [place] # (Auto) Eos # (Auto) Baso # (Auto) PT INR Sodium Potassium Chloride Carbon Dioxide BUN Creatinine Estimated GFR BUN/Creatinine Ratio Glucose Calcium Total Bilirubin AST ALT Alkaline Phosphatase Total Creatine Kinase CK-MB (CK-2) CK-MB (CK-2) Rel Index Troponin I Total Protein Albumin Globulin Albumin/Globulin Ratio Procalcitonin 0.11 SARS-CoV-2 (PCR) Negative Blood Type O Positive Antibody Screen Negative 06/25/21 20:40 WBC RBC Hgb Hct MCV MCH MCHC RDW Plt Count Neut % (Auto) Lymph % (Auto) [place] % (Auto) Eos % (Auto) Baso % (Auto) Neut # (Auto) Lymph # (Auto) [place] # (Auto) Eos # (Auto) Baso # (Auto) PT 13.4 H INR 1.2 Sodium Potassium Chloride Carbon Dioxide BUN Creatinine Estimated GFR BUN/Creatinine Ratio Glucose Calcium Total Bilirubin AST ALT Alkaline Phosphatase Total Creatine Kinase CK-MB (CK-2) CK-MB (CK-2) Rel Index Troponin I Total Protein Albumin Globulin Albumin/Globulin Ratio Procalcitonin SARS-CoV-2 (PCR) Blood Type Antibody Screen Assessment & Plan Assessment & Plan narrative: Camacho Martin will be admitted for further evaluation and treatment of a presumed gastrointestinal bleed, unknown if upper, lower or both. 1. Rectal bleeding, acute and present on admission Patient will have clears and then NPO after midnight followed by colonoscopy prep overnight Dr. Pollard general surgery has been notified and will see the patient in the morning. She is likely to do both an upper and lower GI scope CBC at 10:00 p.m. and at 5:00 a.m. 2. Essential hypertension, chronic and present on admission Continue home dose of lisinopril 20 mg po daily 3. Osteoarthritis, chronic Continue home dose of pregabulin 225 mg po tid Hold meloxicam due to active bleeding 4. GERD, acute Normally takes omeprazole 20 mg po daily, currently held Will be receiving IV protonix 40 mg bid VTE Prophylaxis: Wells risk score 0 [X] Bilateral MARIELA hose while ambulatory, SCDs in bed. Pharmacological VTE prophylaxis contraindicated due to bleeding. Patient is admitted to the inpatient service due to the severity of disease, risks of further disease progression and this stay is expected to exceed 2 midnights. FEN: IV fluids: NS at 200 ml/hour, diet: clears, followed by NPO past midnight, labs: CBC, C/BMP, liver enzymes, Mag, PT/INR Consultants Dr. Pollard, General Surgery, care and involvement in the patient?s care is appreciated Code status: Full code as discussed with the patient who identifies spouse America Alberto as his surrogate and POA. I have utilized all available immediate resources (patient, family member, internal and external medical records) to obtain, update, or review the patient?s current home medications. COVID-19 COVID-19 status: Negative Result date/Date tested (Pos, Neg/Pending): 06/25/21 Scores Wells' Criteria for PE Clinical signs and symptoms of DVT: No PE is #1 Dx or equally likely: No Heart rate > 100: No Immobilization at least 3 days or surg in previous 4 weeks: No History of PE or DVT: No Hemoptysis: No Malignancy w/Treatment within 6 months or palliative: No Wells' PE Score total: 0 Quality VTE Deep Vein Thrombosis/Pulmonary Embolism Present on Admission: No MIPS - Admit I confirm the patient?s Advance Care Plan is present, Code status is documented, Surrogate decision maker is in patient?s record [If Yes, STOP here]: Yes
[2021-06-25] MEDS: ACETAMINOPHEN 325 MG TABLET 650 MG PO (21:48)
[2021-06-25] MEDS: PANTOPRAZOLE 40 MG VIAL IV (21:49)
[2021-06-25 22:16] LABS: Hematocrit 38.6 % (41-53); Hemoglobin 12.9 g/dL (13.5-17.5)
[2021-06-25] MEDS: ZOLPIDEM 5 MG TABLET PO (23:25)
[2021-06-25] MEDS: PREGABALIN 75 MG CAPSULE 225 MG PO (23:25)
[2021-06-26] VITALS (9 sets, daily range): BP systolic 93–123; BP diastolic 61–87; PULSE 66–81; RESP 13–18; TEMP 36.1–36.8; O2SAT 95–100; BMI 26.6
--- NOTE | 2021-06-26 | PATH_ITS ---
[facility] Accession Number: [id number] . 01 Material submitted: . esophagus - ESOPHAGEAL BIOPSY . 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 Additional levels were examined. Please see comment. [facility] 07/01/2021 1659 Local . 02 Comment: As part of routine construction quality control manager, Dr. Rolon and Dr. Jackson also reviewed this case and agree with the interpretation. Dr. Magaña gave preliminary results to Dr. Pollard on 07/01/2021. . 02 Electronically signed: . Mandie Magaña MD, Pathologist NPI- [id number] . 01 Gross description: . ESOPHAGEAL BIOPSY: Received in formalin is 1 fragment(s) of gandhi, soft tissue measuring 0.1 x 0.1 x 0.1 cm submitted entirely in 1 cassette(s) /VAL 06/28/2021 1859 Local . 02 Pathologist provided ICD-10: K22.70 . 02 CPT . 233542 Performed at: 01 [facility] [address] [place] [address], [place], [place] [id number] MD Fredy Jackson MD Phone: [phone] Performed at: 02 [facility] [address] [place], [place] [id number] MD Mandie Magaña MD Phone: [phone]
[2021-06-26 05:13] LABS: Hemoglobin 11.3 g/dL (13.5-17.5)
[2021-06-26 05:22] LABS: BUN Creatinine Ratio 29.5 (6-22); Blood Urea Nitrogen 26 mg/dL (9-20); Calcium 8.8 mg/dL (8.4-10.2); Carbon Dioxide 28 mmol/L (22-32); Chloride 104 mmol/L (98-107); Estimated Glomerular Filt Rate > 60.0 mL/min (>60); Glucose 105 mg/dL (80-110); HEMOLYSIS < 15 (0-50); Magnesium 1.6 mg/dL (1.6-2.3); Potassium 4.4 mmol/L (3.4-5.1); Sodium 137 mmol/L (137-145)
[2021-06-26] MEDS: PREGABALIN 75 MG CAPSULE 225 MG PO (08:02)
[2021-06-26] MEDS: PANTOPRAZOLE 40 MG VIAL IV (08:02)
[2021-06-26] MEDS: lisinopriL 10 MG TABLET 20 MG PO (08:02)
--- NOTE | 2021-06-26 10:28 | PC.NURSE ---
Day shift: Pt off unit for procedure at approx 1030.
--- NOTE | 2021-06-26 10:38 | PM.CN ---
History of Present Illness Consult details Date Patient Seen: 06/26/21 Time Patient Seen: 10:38 Chief complaint: Syncope and GIB Reason for consult: GI bleed Requesting provider: Pedro Robles Narrative: Two days of epigastric discomfort and difficulty swallowing. Awaken at next and went to bathroom where he passed out, once he regained consciousness he returned to bed. Next morning had a bowel movement that was bloody. Has h/o peptic ulcer disease. Under stress at work now, soon to retire. Swallowing issues and epigastric pain are better since starting a PPI. Bowel prep from last evening may not be clear. Last colonoscopy was age 53. Meds Home Medications and Allergies Home Medications Medication Instructions Recorded Confirmed Type meloxicam 15 mg tablet 15 mg PO DAILY #90 tab 12/06/20 06/25/21 Rx zolpidem 12.5 mg tablet,extended 12.5 mg PO BEDTIME PRN #90 tab 05/13/21 06/25/21 Rx release,multiphase omeprazole 20 mg tablet,delayed 20 mg PO DAILY #90 tab 06/17/21 06/25/21 Rx release lisinopril 10 mg tablet 20 mg PO DAILY 06/25/21 06/25/21 History pregabalin 225 mg capsule 225 mg PO TID 06/25/21 06/25/21 History Allergies Allergy/AdvReac Type Severity Reaction Status Date / Time latex [LATEX] Allergy Severe ANAPHYLACTIC Verified 02/11/21 16:03 PROLONGED EXPOSURE polyvinyl chloride (PVC) Allergy Unknown SKIN RASH Verified 02/11/21 16:03 [POLYVINYL CHLORIDE (PVC)] W PROLONGED EXPOSURE Review of Systems Review of Systems ROS: Yes All systems reviewed with the patient and are negative except as otherwise documented Exam Vital Signs (past 8 hours): - 06/26/21 04:00 06/26/21 07:00 Temperature 97.6 F 97.9 F Pulse Rate 81 79 Respiratory Rate 16 16 Blood Pressure 112/61 123/87 Pulse Oximetry 98 98 Oxygen Delivery Method Room Air Oxygen Flow Rate 0 Const General: cooperative and healthy appearing Nutritional Appearance: average body habitus [facility] Head: normal to inspection, normocephalic and atraumatic Eyes General: appearance normal, both eyes and all related structures Sclera: sclerae normal Neck Neck: normal visual inspection and trachea midline Chest Chest: normal inspection of the chest Resp Effort & Inspection: normal respiratory effort and able to speak in complete sentences Auscultation: clear to auscultation bilaterally Cardio Rate: regular rate Rhythm: regular rhythm GI Palpation: soft Skin General: no rashes or lesions noted Neuro General: patient alert and patient oriented x3 Cognition: normal cognition Speech: speech normal Extrem General: normal to inspection and full ROM Psych Appearance: grossly normal Affect: normal affect Judgment: judgment good Objective Labs Result Diagrams: 06/26/21 05:00 06/26/21 05:00 Labs: Laboratory Results - last 24 hr 06/25/21 06/25/21 06/25/21 15:55 15:55 15:55 WBC 13.5 H RBC 4.16 L Hgb 13.3 L Hct 39.5 L MCV 94.8 MCH 31.9 MCHC 33.6 RDW 12.7 Plt Count 218 Neut % (Auto) 80.6 H Lymph % (Auto) 9.9 L [place] % (Auto) 8.9 Eos % (Auto) 0.4 L Baso % (Auto) 0.2 Neut # (Auto) 67311 H Lymph # (Auto) 1300 [place] # (Auto) 1200 H Eos # (Auto) 100 Baso # (Auto) 0 PT INR Sodium 138 Potassium 4.4 Chloride 105 Carbon Dioxide 25 BUN 36 H Creatinine 0.87 Estimated GFR > 60.0 BUN/Creatinine Ratio 41.4 H Glucose 122 H Calcium 10.9 H Magnesium Total Bilirubin 0.8 AST 19 ALT 16 Alkaline Phosphatase 45 Total Creatine Kinase 77 CK-MB (CK-2) TNP CK-MB (CK-2) Rel Index TNP Troponin I < 0.012 Total Protein 7.1 Albumin 4.1 Globulin 3.0 Albumin/Globulin Ratio 1.4 Procalcitonin SARS-CoV-2 (PCR) Blood Type Antibody Screen 06/25/21 06/25/21 06/25/21 15:55 17:15 20:40 WBC RBC Hgb Hct MCV MCH MCHC RDW Plt Count Neut % (Auto) Lymph % (Auto) [place] % (Auto) Eos % (Auto) Baso % (Auto) Neut # (Auto) Lymph # (Auto) [place] # (Auto) Eos # (Auto) Baso # (Auto) PT INR Sodium Potassium Chloride Carbon Dioxide BUN Creatinine Estimated GFR BUN/Creatinine Ratio Glucose Calcium Magnesium Total Bilirubin AST ALT Alkaline Phosphatase Total Creatine Kinase CK-MB (CK-2) CK-MB (CK-2) Rel Index Troponin I Total Protein Albumin Globulin Albumin/Globulin Ratio Procalcitonin 0.11 SARS-CoV-2 (PCR) Negative Blood Type O Positive Antibody Screen Negative 06/25/21 06/25/21 06/26/21 20:40 22:04 05:00 WBC RBC Hgb 12.9 L 11.3 L Hct 38.6 L 33.0 L MCV MCH MCHC RDW Plt Count Neut % (Auto) Lymph % (Auto) [place] % (Auto) Eos % (Auto) Baso % (Auto) Neut # (Auto) Lymph # (Auto) [place] # (Auto) Eos # (Auto) Baso # (Auto) PT 13.4 H INR 1.2 Sodium Potassium Chloride Carbon Dioxide BUN Creatinine Estimated GFR BUN/Creatinine Ratio Glucose Calcium Magnesium Total Bilirubin AST ALT Alkaline Phosphatase Total Creatine Kinase CK-MB (CK-2) CK-MB (CK-2) Rel Index Troponin I Total Protein Albumin Globulin Albumin/Globulin Ratio Procalcitonin SARS-CoV-2 (PCR) Blood Type Antibody Screen 06/26/21 05:00 WBC RBC Hgb Hct MCV MCH MCHC RDW Plt Count Neut % (Auto) Lymph % (Auto) [place] % (Auto) Eos % (Auto) Baso % (Auto) Neut # (Auto) Lymph # (Auto) [place] # (Auto) Eos # (Auto) Baso # (Auto) PT INR Sodium 137 Potassium 4.4 Chloride 104 Carbon Dioxide 28 BUN 26 H Creatinine 0.88 Estimated GFR > 60.0 BUN/Creatinine Ratio 29.5 H Glucose 105 Calcium 8.8 Magnesium 1.6 Total Bilirubin AST ALT Alkaline Phosphatase Total Creatine Kinase CK-MB (CK-2) CK-MB (CK-2) Rel Index Troponin I Total Protein Albumin Globulin Albumin/Globulin Ratio Procalcitonin SARS-CoV-2 (PCR) Blood Type Antibody Screen Assessment & Plan Assessment & Plan narrative: H/o peptic ulcer disease. Now with episode of blood in stool, likely upper GI source. Plan: EGC and colonoscopy with anesthesia. COVID-19 COVID-19 status: Negative Time Spent With Patient Time with patient: 15-24 minutes
[2021-06-26] MEDS: LACTATED RINGERS 1,000 ML 42 ML IV ×2 (10:45→11:20)
[2021-06-26] MEDS: LIDOCAINE 4% SOLN 50 ML 20 ML TOP (11:03)
--- NOTE | 2021-06-26 11:33 | SUR.OPER ---
skin shear on right buttock noticed at end of case. Dr. Pollard notified.
--- NOTE | 2021-06-26 11:35 | PM.OP.ENDO ---
Operative Date/Time/Diagnoses Date of procedure: 06/26/21 Time of procedure: 11:35 Pre-op diagnosis: GI bleed Post-op diagnosis: same Procedure & Clinicians Study performed: EGD with biopsy Same procedure as scheduled: Yes Indications: GI bleed Surgeon: Dodie Pollard Procedure Notes SCOAP/Timeout: done Procedure in detail: Prep diagnosis: GI bleed Postop diagnosis: Same Surgeon: Nasrin Pollard MD Anesthesiology: Mac Procedure: EGD with cold forceps biopsy Findings: Duodenitis with no obvious ulceration, no active bleeding Severe esophagitis fungal in appearance. Otherwise normal upper endoscopy, no evidence of significant hiatal hernia Procedure: Patient placed in a lateral position. Scope inserted into the esophagus advanced into the stomach and insufflation identified the pylorus intubated into the duodenum. First 2nd portion of duodenum were edematous and inflamed, no ulcerations. Extraction of the scope showed the stomach to have no overt inflammatory process or ulcerations. There were 1-2 gastric polyps benign in appearance. Esophagus revealed severe esophagitis with plaquing consistent with candidiasis. Biopsy taken and sent in formalin rule out Man's. Impression: Severe esophagitis appears to be fungal in nature. As well as duodenitis. Plan: Continue with PPI, awaiting H pylori results, nystatin swish and swallow for esophagitis. Findings: other findings (duodenitis, and fungal esophagitis) Specimen(s): other (esophageal biopsy) Complications: none
--- NOTE | 2021-06-26 11:40 | PM.OP.ENDO ---
Operative Date/Time/Diagnoses Date of procedure: 06/26/21 Time of procedure: 11:40 Pre-op diagnosis: gi bleed Post-op diagnosis: same Procedure & Clinicians Study performed: colonoscopy Same procedure as scheduled: Yes Indications: GI bleed Surgeon: Dodie Pollard Procedure Notes SCOAP/Timeout: done Procedure in detail: Prep diagnosis: GI bleed Postop diagnosis: Same Operative procedure: Colonoscopy with MAC Surgeon: Nasrin Pollard MD Findings: Finer details of the colon obscured due to retained fecal and blood matter. However no polyps or masses identified. No active bleeding. He does have diverticulosis of a mild degree in the descending colon. Again polyps under 3 mm may have been obscured by inadequate prep Procedure: Patient placed in lateral position. Rectal exam performed showing normal tone no masses. Colonoscope inserted into the rectum and advanced to the ileocecal valve with minimal difficulty. Insufflation and extraction of the scope including retroflex and the above findings. Impression: Mild diverticulosis in the descending colon. Poor bowel prep. No large masses or large polyps identified. Plan repeat colonoscopy in 5 years Findings: diverticulosis Specimen(s): none sent Complications: none
--- NOTE | 2021-06-26 11:44 | SUR.PHASEI ---
Pt arrived to PACU, mostly sleeping arouses to name, airway self maintained and on room air.
--- NOTE | 2021-06-26 11:58 | SUR.PHASEI ---
1155 report attempted, RN unavailable, to call back.
--- NOTE | 2021-06-26 12:13 | SUR.PHASEI ---
Report called to CONY Holland
--- NOTE | 2021-06-26 12:29 | SUR.PHASEI ---
Pt transported up to room 218 and left with Yosarian and left in stable condition. Assited pt to BR, and back to bed, steady when up.
--- NOTE | 2021-06-26 12:31 | PC.NURSE ---
Day shift: Pt back on AC unit from PACU at approx 1230. Denies any pain or nausea at this time. Has also voided.
[2021-06-26] MEDS: FLUCONAZOLE 100 MG TABLET 400 MG PO (12:47)
[2021-06-26 13:24] LABS: Hematocrit 33.7 % (41-53); Hemoglobin 11.4 g/dL (13.5-17.5)
--- NOTE | 2021-06-26 13:34 | P.DS_ITS ---
History of Present Illness History of Present Illness Date Patient Seen: 06/26/21 Time Patient Seen: 13:34 Chief complaint: Syncope and GIB Narrative: Per Leanna Monsalve, ANRP: Camacho Martin is a pleasant 61 y.o. 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 He has been having a hard time sleeping due to having pain in his mid-epigastric area. Last night he passed out and fell off othe toilet, he woke up and returned to bed. At 4:30 am, he woke up again and had a bloody bowel movement for which he took a photo of it with his phone. He went to clean up his first bowel movement and noted he had soiled against his wall and that it was also bloody. He states he is sweating, and has continued mild epigastric pain. He denies shortness of breath, chest pain, abdominal cramping, nausea or vomiting, or constipation. He states 10 years ago, he had a similar presentation and went to [facility]. He stated they transferred him to [facility] in [place] because he had dangerously become anemic. They performed 2 endoscopies and one colonoscopy when they located the ulcer below the duodenal bulb. 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 General surgery was consulted on in the emergency department and they plan to see the patient tomorrow. Patient is afebrile, blood pressure 151/90, heart rate 86, respiratory rate 19, oxygen saturation 99% on room air, he weighs 94 point 3 kg with a BMI of 26.6. His WBC is mildly elevated at 13.5, RBC 4.16, hemoglobin and hematocrit are 13.3 and 39.5 respectively which is lower than his baseline, platelet count is 218, he does have a left shift of 10,900, BUN is 36 with a normal creatinine, glucose 122, calcium 10.9, procalcitonin is within normal limits, and COVID-19 PCR is negative. He is type O positive. Discharge Providers Provider Date of admission: 06/25/21 18:16 Discharge Date: 06/26/21 Primary care physician: Antonio Clark MD Consults: 06/25/21 20:13 Consult to General Surgery Routine Comment: Consulting Provider: Dodie Pollard Reason for consultation: upper vs lower gib Has provider been notified: Yes Discharge provider: Mack Patino DO Summary Hospital Course Discharge Diagnosis: 1. GI bleeding secondary to duodenitis 2. esophagitis, acute, present on admission 3. HTN, chronic 4. Insomnia 5. Acute blood loss anemia 6. Osteoarthritis, chronic 7. Syncope Hospital Course: This is a 61-year-old male with a past medical history of prior duodenal ulcer, hypertension, osteoarthritis who was admitted for GI bleeding. He underwent endoscopy with EGD and colonoscopy which revealed duodenitis as well as severe esophagitis. Colonoscopy findings were unremarkable except for some diverticula. He was able to tolerate a diet shortly after his procedure, and his H&H stabilized after dropping a couple of points after admission. He improved more quickly than expected. He was discharged home on oral fluconazole after receiving the initial dose of 400 mg today. He is also discharged on oral PPI to take twice daily. He should follow-up with his primary care provider in 2-4 weeks and with General surgery for biopsy results. Time Spent with Patient Time spent: Greater than 30 minutes Exam Vital Signs (past 8 hours): - 06/26/21 07:00 06/26/21 10:37 06/26/21 11:35 Temperature 97.9 F 98.1 F 97.6 F Pulse Rate 79 77 77 Respiratory Rate 16 18 16 Blood Pressure 123/87 122/82 106/66 Pulse Oximetry 98 97 95 06/26/21 11:40 06/26/21 11:45 06/26/21 11:50 Temperature 98.1 F Pulse Rate 69 76 74 Respiratory Rate 18 17 13 Blood Pressure 93/67 109/73 105/73 Pulse Oximetry 95 97 99 06/26/21 12:10 06/26/21 12:32 Temperature 98.3 F 97.0 F L Pulse Rate 66 73 Respiratory Rate 14 18 Blood Pressure 120/77 122/67 Pulse Oximetry 99 100 Oxygen Delivery Method Room Air Oxygen Flow Rate 0 Narrative Exam Narrative: Gen: Alert, oriented, well-developed 61 y.o. male, NAD HEENT: normocephalic, atraumatic, conjunctiva clear, sclera non-icteric, oral mucosa pink and moist Neck: supple, full ROM, no JVD, trachea is midline Resp: Lungs CTA, non-labored breathing CV: RRR, no murmur or rubs Abd: tender below zyphoid process, soft, normoactive BTs Skin: no lesions or rashes, dry and intact Neuro: Alert and oriented X 4 w/no focal deficits. Speech clear and coherent. Extremities: no edema or joint effusions. Psyche: pleasant, normal mood and affect. Objective Labs Result Diagrams: 06/26/21 13:05 06/26/21 05:00 Labs: Laboratory Results - last 24 hr 06/25/21 06/25/21 06/25/21 15:55 15:55 15:55 WBC 13.5 H RBC 4.16 L Hgb 13.3 L Hct 39.5 L MCV 94.8 MCH 31.9 MCHC 33.6 RDW 12.7 Plt Count 218 Neut % (Auto) 80.6 H Lymph % (Auto) 9.9 L [place] % (Auto) 8.9 Eos % (Auto) 0.4 L Baso % (Auto) 0.2 Neut # (Auto) 72408 H Lymph # (Auto) 1300 [place] # (Auto) 1200 H Eos # (Auto) 100 Baso # (Auto) 0 PT INR Sodium 138 Potassium 4.4 Chloride 105 Carbon Dioxide 25 BUN 36 H Creatinine 0.87 Estimated GFR > 60.0 BUN/Creatinine Ratio 41.4 H Glucose 122 H Calcium 10.9 H Magnesium Total Bilirubin 0.8 AST 19 ALT 16 Alkaline Phosphatase 45 Total Creatine Kinase 77 CK-MB (CK-2) TNP CK-MB (CK-2) Rel Index TNP Troponin I < 0.012 Total Protein 7.1 Albumin 4.1 Globulin 3.0 Albumin/Globulin Ratio 1.4 Procalcitonin SARS-CoV-2 (PCR) Blood Type Antibody Screen 06/25/21 06/25/21 06/25/21 15:55 17:15 20:40 WBC RBC Hgb Hct MCV MCH MCHC RDW Plt Count Neut % (Auto) Lymph % (Auto) [place] % (Auto) Eos % (Auto) Baso % (Auto) Neut # (Auto) Lymph # (Auto) [place] # (Auto) Eos # (Auto) Baso # (Auto) PT INR Sodium Potassium Chloride Carbon Dioxide BUN Creatinine Estimated GFR BUN/Creatinine Ratio Glucose Calcium Magnesium Total Bilirubin AST ALT Alkaline Phosphatase Total Creatine Kinase CK-MB (CK-2) CK-MB (CK-2) Rel Index Troponin I Total Protein Albumin Globulin Albumin/Globulin Ratio Procalcitonin 0.11 SARS-CoV-2 (PCR) Negative Blood Type O Positive Antibody Screen Negative 06/25/21 06/25/21 06/26/21 20:40 22:04 05:00 WBC RBC Hgb 12.9 L 11.3 L Hct 38.6 L 33.0 L MCV MCH MCHC RDW Plt Count Neut % (Auto) Lymph % (Auto) [place] % (Auto) Eos % (Auto) Baso % (Auto) Neut # (Auto) Lymph # (Auto) [place] # (Auto) Eos # (Auto) Baso # (Auto) PT 13.4 H INR 1.2 Sodium Potassium Chloride Carbon Dioxide BUN Creatinine Estimated GFR BUN/Creatinine Ratio Glucose Calcium Magnesium Total Bilirubin AST ALT Alkaline Phosphatase Total Creatine Kinase CK-MB (CK-2) CK-MB (CK-2) Rel Index Troponin I Total Protein Albumin Globulin Albumin/Globulin Ratio Procalcitonin SARS-CoV-2 (PCR) Blood Type Antibody Screen 06/26/21 06/26/21 05:00 13:05 WBC RBC Hgb 11.4 L Hct 33.7 L MCV MCH MCHC RDW Plt Count Neut % (Auto) Lymph % (Auto) [place] % (Auto) Eos % (Auto) Baso % (Auto) Neut # (Auto) Lymph # (Auto) [place] # (Auto) Eos # (Auto) Baso # (Auto) PT INR Sodium 137 Potassium 4.4 Chloride 104 Carbon Dioxide 28 BUN 26 H Creatinine 0.88 Estimated GFR > 60.0 BUN/Creatinine Ratio 29.5 H Glucose 105 Calcium 8.8 Magnesium 1.6 Total Bilirubin AST ALT Alkaline Phosphatase Total Creatine Kinase CK-MB (CK-2) CK-MB (CK-2) Rel Index Troponin I Total Protein Albumin Globulin Albumin/Globulin Ratio Procalcitonin SARS-CoV-2 (PCR) Blood Type Antibody Screen ON LICENSE OF [facility] Medical History Carpal tunnel syndrome (~1993) Disc degeneration, lumbar Foot pain (~2009) History of duodenal ulcer NSAID long-term use Osteoarthritis Osteoarthritis of hand, left Other spondylosis with radiculopathy, lumbar region PUD (peptic ulcer disease) Rosacea Syncope Surgical History Anesthesia History of colonoscopy S/P laparoscopic surgery (~08/2014) Family History Father Heart disease Sjogren's disease Grandfather No problems noted. Mother Alive and well Sister Sjogren's disease Brother Alive and well Other Congestive heart failure Social History household members: spouse Smoking Status: Former smoker Discharge Plan Discharge Plan Patient Disposition: Home Provider Discharge Comment: You were admitted to the hospital with GI bleeding. You were found to have a duodenal inflammation as well as severe esophagitis. It was recommended by the surgeon who did your endoscopy that you complete a course of an anti fungal for your esophagus. Please call the surgery office to go over the results of your biopsy. Please avoid meloxicam in the future. Please follow up with your PCP in 2-4 weeks to check on your symptoms. Discharge orders & Medications Prescriptions: New fluconazole 200 mg tablet 200 mg PO DAILY 14 Days Qty: 14 RF: 0 pantoprazole 40 mg tablet,delayed release (DR/EC) 40 mg PO BID 30 Days Qty: 60 RF: 0 Continued zolpidem 12.5 mg tablet,ext release multiphase 12.5 mg PO BEDTIME PRN (Reason: insomnia) Qty: 90 RF: 2 pregabalin 225 mg Capsule 225 mg PO TID RF: 0 lisinopril 10 mg tablet 20 mg PO DAILY RF: 0 Discontinued meloxicam 15 mg tablet 15 mg PO DAILY Qty: 90 RF: 3 omeprazole 20 mg tablet,delayed release (DR/EC) 20 mg PO DAILY Qty: 90 RF: 3 Follow up/Referrals: Antonio Clark MD [Primary Care Provider] - Diet/Activity/Treatments Diet: Diet as Tolerated Activity: As tolerated Visit Report/Discharge Packet Instructions: Gastrointestinal Bleeding Discharge Data Primary Care Provider: Antonio Clark Quality VTE Deep Vein Thrombosis/Pulmonary Embolism Present on Admission: No
--- NOTE | 2021-06-26 13:50 | CM.DANOTE ---
Discharge Planning/Care Management DCP: assessment: case received, discussed in Team Rounds and Dr. Patino said pt may be able to d/c today after endoscopy procedure was completed and recommendations for ongoing care were clearer. Pt is a 61 year old male who admitted last night to care of hospitalist team. Consulting: [facility]: Dr. Pollard who took pt ot OR for endoscopy procedure this morning. Pt returned to his room on the acute care floor early afternoon and a d/c order is now in place. Pt will d/c to home with some medication changes and to follow up with his PCP: Antonio Clark. Went to room to check in with pt. He and his are currently going over the final d/c instructions with CONY Espinoza. No d/c needs are identified. Payer: [employer] today. CM Discharge Assessment Start: 06/26/21 13:48 Freq: Status: Active Protocol: Document 06/26/21 13:48 ITV (Rec: 06/26/21 13:49 ITV [id number]) Discharge Planning Assessment Advance Directives? No History Provided By Medical Record Prior Living Arrangements House Household Members spouse Independent with ADL's Yes Is patient alert and oriented? Yes Discharge Plan Home
--- NOTE | 2021-06-26 14:17 | PC.NURSE ---
Day shift: Paperwork signed and all questions answered. Pt has all personal belongings. MD scripts sent electronic to Pt's pharmacy. Taken to car that his spouse is driving him home in by LAUREANO Dennis. Encouraged to notify his MD if symptoms worsen and to call surgery to get results of his exams from today, tomorrow. Pt stated Wow, you guys move fast and thank you for that so I can go home now.
[2021-06-28 15:57] LABS: H. Pylori Antigen Stool Negative (Negative)
== END 2021-06-26 14:22 | disposition home or self-care (01) | DRG 378 ==
LOC: ED 15:32 → AC 18:17
PROVIDERS: Nurse Practitioner Family; Surgery; Admitting Provider Internal Medicine; Emergency Provider Emergency Medicine; Family Provider Family Medicine; PCP Family Medicine; Referring Provider Emergency Medicine; Visit Provider Internal Medicine
PROC: 0DJ08ZZ Inspection of Upper Intestinal Tract, Via Natural or Artificial Opening Endoscopic (ICD-10-PCS; CPT 43235; principal; 2021-06-26 11:00)
PROC: 0DJD8ZZ Inspection of Lower Intestinal Tract, Via Natural or Artificial Opening Endoscopic (ICD-10-PCS; CPT 45378; 2021-06-26 11:00)
DX: K29.81 Duodenitis with bleeding (principal); D62 Acute posthemorrhagic anemia; B48.8 Other specified mycoses; I10 Essential (primary) hypertension; R55 Syncope and collapse; K21.9 Gastro-esophageal reflux disease without esophagitis; Z87.891 Personal history of nicotine dependence; Z20.822 Contact with and (suspected) exposure to COVID-19; M47.9 Spondylosis, unspecified; Z79.1 Long term (current) use of non-steroidal anti-inflammatories (NSAID)
CPT/HCPCS: 36415; 43239; 45378; 80048; 80053; 82550; 83735; 84145; 84484; 85014; 85018; 85025; 85610; 86850; 86900; 86901; 87338; 87635; 93005; 96374; 99231; 99284; C9803; C9113

== ENCOUNTER → 2022-01-23 15:29 | Outpatient (CLI) | payer OTHER, SELFPAY ==
[2021-06-25 18:22] VITALS: BMI 26.6
[2022-01-23 17:33] LABS: COVID19 -Nasal RAPID Negative (Negative)
== END ==
PROVIDERS: Family Provider Family Medicine; PCP Family Medicine; Visit Provider Surgery
DX: Z20.822 Contact with and (suspected) exposure to COVID-19 (principal)
CPT/HCPCS: 87635

== ENCOUNTER 2022-01-24 08:03 | Day surgery (SDC) | payer OTHER, SELFPAY ==
[2021-06-25 18:22] VITALS: BMI 26.6
--- NOTE | 2022-01-24 | PATH_ITS ---
[facility] Accession Number: [id number] . 01 Material submitted: . esophagus, E-G Junction - GE JUNCTION . 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 Negative for dysplasia and malignancy. MRV 01/26/2022 1519 Local . 02 Electronically signed: . Mandie Magaña MD, Pathologist NPI- [id number] . 01 Gross description: . GE JUNCTION: Received in formalin are 2 fragment(s) of gandhi, soft tissue measuring 0.2 x 0.2 x 0.2 cm to 0.3 x 0.2 x 0.2 cm submitted entirely in 1 cassette(s) /VAL 01/25/20222009 Local . 02 Pathologist provided ICD-10: K22.70 . 02 CPT . 675078 Specimen Comment: A courtesy copy of this report has been sent to [phone] Performed at: [address] [facility] Cytology [address] [facility], [place], [place] [id number] MD Fredy Jackson MD Phone: [phone] Performed at: 02 [facility] [address] [place], [place] [id number] MD Mandie Magaña MD Phone: [phone]
[2022-01-24 08:28] VITALS: BMI 28.2
[2022-01-24 08:34] VITALS: BP 125/78; PULSE 63; RESP 13; TEMP 35.9; O2SAT 99
[2022-01-24] MEDS: LACTATED RINGERS 1,000 ML 200 ML IV (08:39)
--- NOTE | 2022-01-24 08:44 | PM.HP.1 ---
History of Present Illness History of Present Illness Date Patient Seen: 01/24/22 Time Patient Seen: 08:44 Chief complaint: SDC Narrative: Camacho is a 61-year-old man hx of esophagitis.? 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 He has been taking Protonix 20 mg once twice with good success.? No difficulty swallowing no unintentional weight loss. Patient History Medical History Carpal tunnel syndrome (~1993) Disc degeneration, lumbar Foot pain (~2009) History of duodenal ulcer NSAID long-term use Osteoarthritis Osteoarthritis of hand, left Other spondylosis with radiculopathy, lumbar region PUD (peptic ulcer disease) Rosacea Syncope Surgical History Anesthesia History of colonoscopy S/P laparoscopic surgery (~08/2014) Family & Social History Family History Father Heart disease Sjogren's disease Grandfather No problems noted. Mother Alive and well Sister Sjogren's disease Brother Alive and well Other Congestive heart failure Social History: household members spouse Tobacco & Substance use: Smoking Status Former smoker alcohol intake never alcohol intake frequency holiday/special occasion Substance Use Type marijuana Meds Home Medications and Allergies Home Medications Medication Instructions Recorded Confirmed Type pregabalin 225 mg capsule 225 mg PO TID 06/25/21 01/24/22 History pantoprazole 20 mg tablet,delayed 20 mg PO DAILY #30 tab 08/08/21 01/24/22 Rx release (Protonix) zolpidem 12.5 mg tablet,extended 12.5 mg PO BEDTIME PRN #90 tab 11/16/21 01/24/22 Rx release,multiphase lisinopril 10 mg tablet 20 mg PO DAILY #180 tab 11/24/21 01/24/22 Rx acetaminophen 650 mg 650 mg PO Q8H 01/24/22 01/24/22 History tablet,extended release (Arthritis Pain Relief (acetaminophen) ER) Allergies Allergy/AdvReac Type Severity Reaction Status Date / Time latex [LATEX] Allergy Severe ANAPHYLACTIC Verified 01/24/22 08:24 PROLONGED EXPOSURE polyvinyl chloride (PVC) Allergy Unknown SKIN RASH Verified 01/24/22 08:24 [POLYVINYL CHLORIDE (PVC)] W PROLONGED EXPOSURE Exam Vital Signs (past 8 hours): - 01/24/22 08:34 Temperature 96.6 F L Pulse Rate 63 Respiratory Rate 13 Blood Pressure 125/78 Pulse Oximetry 99 Oxygen Delivery Method Room Air Narrative Exam Narrative: GENERAL: A dull male in no apparent distress HEENT: No scleral icterus CV: Regular rate, no peripheral edema LUNGS: No increased work of breathing. Patient speaks in full sentences without oxygen support. ABDOMEN: Soft, non-tender, non-distended NEURO: Nonfocal, normal strength throughout SKIN: Warm and dry Assessment & Plan Assessment & Plan narrative: 61-year-old man history of Man's esophagus without dysplasia here for screening esophagoduodenoscopy. Technical details of the procedure were discussed with the patient. Procedural risks including bleeding, infection, missed diagnosis, intestinal perforation were discussed. His questions have been answered he is in agreement with this plan. Time Spent With Patient Critical Care time: I spent a total of [] minutes of critical care time on this patient's care today; this time is exclusive of procedural time.
[2022-01-24] MEDS: LIDOCAINE 4% SOLN 50 ML 20 ML TOP (08:54)
--- NOTE | 2022-01-24 09:05 | PM.OP.EGD ---
Operative Date/Time/Diagnoses Date of procedure: 01/24/22 Time of procedure: 09:05 Pre-op diagnosis: history of barretts esophagus Post-op diagnosis: same Procedure & Clinicians Study performed: esophagoduodenoscopy Same procedure as scheduled: Yes Indications: follow up Man's esophagus Surgeon: Kevyn Talavera Procedure Notes Procedure in detail: Patient placed in left lateral decubitus position. Time out was performed. Procedural sedation was administered with Versed and Fentanyl. A bite block was placed. the scope was inserted into the mouth and advanced through the esophagus and into the stomach. The pylorus was intubated and the duodenum was normal to the 2nd portion. The scope was retroflexed within the stomach and there was a no hiatal hernia, no ulcers, or gastritis. The scope was withdrawn into the esophagus the Z line was seen at 40 cm from the incisions. There was no Man's esophagitis or masses or strictures. Random biopsy with forceps at the GE junction was performed. Stomach was desufflated and scope removed. Patient tolerated procedure well. Specimen(s): other (GE junction) Complications: none Impression: Normal esophagoduodenoscopy Post-procedure Recommendations: EGD in 1 year Disposition: same day surgery
[2022-01-24] MEDS: fentaNYL 250 MCG/5 ML INJ IV (09:06)
[2022-01-24] MEDS: MIDAZOLAM 5 MG/5 ML VIAL IV (09:06)
[2022-01-24 09:08] VITALS: BP 114/80; PULSE 65; RESP 12; TEMP 36.2; O2SAT 97
[2022-01-24 09:13] VITALS: BP 117/73; PULSE 56; RESP 14; O2SAT 97
[2022-01-24 09:20] VITALS: BP 118/73; PULSE 66; RESP 15; O2SAT 96
== END 2022-01-24 09:21 | disposition home or self-care (01) ==
PROVIDERS: Family Provider Family Medicine; PCP Family Medicine; Referring Provider Surgery; Visit Provider Surgery
PROC: 0DJ08ZZ Inspection of Upper Intestinal Tract, Via Natural or Artificial Opening Endoscopic (ICD-10-PCS; CPT 43235; principal; 2022-01-24 09:15)
DX: K22.70 Barrett's esophagus without dysplasia (principal)
CPT/HCPCS: 43239; J2250; J3010

== ENCOUNTER → 2022-02-03 09:29 | Outpatient (CLI) | payer OTHER, SELFPAY ==
[2021-06-25 18:22] VITALS: BMI 26.6
--- NOTE | 2022-02-03 | DI.MRI.S_ITS ---
PROCEDURE: MR LUMBAR SPINE WO CON INDICATIONS: Radiculopathy, lumbar region TECHNIQUE: Noncontrast sagittal T1 spin echo and T2 fast echo, sagittal STIR, and T2 fast spin echo through the lumbar spine. In cases with scoliosis, additional coronal T2 fast spin echo may be performed. COMPARISON: [facility], CR, XR LUMBAR SPINE 2-3V, 06/10/2019, 9:57. [facility], MR, MR LUMBAR SPINE WO CON, 10/28/2020, 13:31. FINDINGS: Image quality: Excellent. Alignment and Curvature: 5 lumbar type vertebral bodies are present by plain film. There is mild grade 1 retrolisthesis L2 on L3, L3 on L4, L4 on L5, and L5 on S1. Bone Marrow: Marrow is of normal overall signal. No acute vertebral body compression fractures. Moderate reactive signal within the endplates adjacent to the L4-L5 and L5-S1 intervertebral discs. Mild reactive signal throughout the endplates adjacent to the remaining lumbar and lower thoracic intervertebral discs. Spinal Cord: Conus medullaris terminates at the lower L1 level. Visualized cord demonstrates normal signal and size. Paraspinous Soft Tissues: No paravertebral masses. Retroaortic left renal vein. T12-L1: Normal appearance. L1-L2: Mild disc desiccation and diffuse disc bulge. Mild facet and ligamentum flavum hypertrophy. Mild canal stenosis. Mild bilateral foraminal stenosis. No significant change. L2-L3: Mild disc height loss and desiccation. Mild diffuse disc bulge with superimposed broad-based right posterolateral protrusion and well as a new left posterolateral disc extrusion which extends superiorly within the left lateral recess. Mild facet and ligamentum flavum hypertrophy. Mild epidural lipomatosis. Mild canal stenosis is unchanged. Increased, severe left foraminal stenosis. Decreased, moderate right foraminal stenosis. Left L2 nerve root compression within the neural foramen and superior aspect of the left lateral recess. L3-L4: Mild disc height loss and desiccation. Mild diffuse disc bulge with superimposed broad-based right posterolateral protrusion. Mild facet and ligamentum flavum hypertrophy. Mild epidural lipomatosis. Mild canal stenosis. Moderate bilateral foraminal stenosis. No significant change. L4-L5: Moderate disc height loss and desiccation. Mild diffuse disc bulge with superimposed broad-based right posterolateral and far lateral protrusion. Mild facet and ligamentum flavum hypertrophy. Mild epidural mitosis. Mild canal stenosis. Moderate left and severe right foraminal stenosis. Right L4 nerve root compression. No significant change. L5-S1: Severe disc height loss and desiccation. Mild diffuse disc bulge with superimposed broad-based right far lateral protrusion. Mild bilateral facet hypertrophy. Mild canal stenosis. Moderate bilateral foraminal stenosis. No significant change. IMPRESSION: 1. Multilevel degenerative disc and facet disease, as well as ligamentum flavum hypertrophy and epidural lipomatosis. 2. Mild multilevel canal stenoses. 3. Multilevel foraminal stenoses, worst at L2-L3 and L4-L5 where there is associated intraforaminal nerve root compression. 4. New L2-L3 disc extrusion, causing left L2 nerve root compression. 5. Recommend correlation with clinical symptoms to ascertain relevance of these findings. Dictated by: Lori No M.D. on 02/03/2022 at 10:43 Approved by: Lori No M.D. on 02/03/2022 at 10:50
== END ==
PROVIDERS: Family Provider Family Medicine; PCP Family Medicine; Referring Provider Physical Medicine & Rehabilitation; Visit Provider Physical Medicine & Rehabilitation
DX: M54.16 Radiculopathy, lumbar region (principal); M51.36 Other intervertebral disc degeneration, lumbar region; M48.061 Spinal stenosis, lumbar region without neurogenic claudication; M46.06 Spinal enthesopathy, lumbar region; E88.2 Lipomatosis, not elsewhere classified; M51.26 Other intervertebral disc displacement, lumbar region
CPT/HCPCS: 72148

== ENCOUNTER → 2023-04-17 11:19 | Outpatient (CLI) | payer OTHER, SELFPAY ==
[2021-06-25 18:22] VITALS: BMI 26.6
[2023-04-17 12:23] LABS: Hematocrit 42.9 % (41-53); Hemoglobin 14.5 g/dL (13.5-17.5); Mean Corpuscular HGB Conc 33.8 % (30-36); Mean Corpuscular Hemoglobin 31.4 PG (26-34); Mean Corpuscular Volume 92.7 fL (80-100); Platelet Count 161 X10^3/uL (150-400); Red Blood Cell Count 4.63 X10^6/uL (4.5-5.9); Red Cell Distribution Width 13.4 % (11.6-14.8); White Blood Cell Count 4.4 X10^3/uL (4.5-11.0)
[2023-04-17 12:45] LABS: Alanine Aminotransferase 25 IU/L (<50); Albumin 4.5 g/dL (3.5-5.0); Albumin Globulin Ratio 1.5 (1.0-2.8); Alkaline Phosphatase 52 U/L (38-126); Aspartate Aminotransferase 30 IU/L (17-59); Bilirubin Total 0.8 mg/dL (0.2-1.3); Blood Urea Nitrogen 20 mg/dL (9-20); Calcium 9.1 mg/dL (8.4-10.2); Carbon Dioxide 29 mmol/L (22-32); Chloride 102 mmol/L (98-107); Cholesterol 206 mg/dL (140-199); Estimated Glomerular Filt Rate > 60 mL/min (>60); Glucose 101 mg/dL (80-110); HDL Cholesterol 44 mg/dL (40-60); HEMOLYSIS < 15 (0-50); LDL Cholesterol Calculated 141 mg/dL (<100); Potassium 4.4 mmol/L (3.4-5.1); Sodium 137 mmol/L (137-145); Total Protein 7.5 g/dL (6.3-8.2); Triglycerides 106 mg/dL (35-150)
[2023-04-17 13:10] LABS: TSH w/ Reflex to FT4 0.23 uIU/mL (0.47-4.68)
[2023-04-17 14:45] LABS: Free T4, Direct Thyroxine 0.83 ng/dL (0.78-2.19)
== END ==
PROVIDERS: Registered Nurse Diabetes Educator; Family Provider Family Medicine; PCP Family Medicine; Referring Provider Family Medicine; Visit Provider Family Medicine
DX: I10 Essential (primary) hypertension (principal); Z00.00 Encounter for general adult medical examination without abnormal findings
CPT/HCPCS: 36415; 80053; 80061; 84439; 84443; 85027

== ENCOUNTER → 2023-05-03 16:28 | Outpatient (CLI) | payer MEDICARE, OTHER, SELFPAY ==
[2021-06-25 18:22] VITALS: BMI 26.6
--- NOTE | 2023-05-03 16:30 | DI.US.S_ITS ---
PROCEDURE: US EXTREMITY NONVASC LOWER LT INDICATIONS: left knee mass TECHNIQUE: Real-time scanning was performed of the left knee, with image documentation. COMPARISON: None. FINDINGS: A fluid collection is seen posterior to the left knee measuring 7.5 x 1.2 x 4.7 cm with foci of intracystic debris. The cyst appears to communicate with the knee joint space. IMPRESSION: Palpable abnormality corresponds to a 7.5 cm medial popliteal Acosta's cyst with intracystic debris. Approved by: Enoc Santos M.D. on 05/04/2023 at 10:46
[2023-05-04 10:43] LABS: Fecal Immunochemical Test Negative (Negative)
== END ==
PROVIDERS: Family Provider Family Medicine; PCP Family Medicine; Referring Provider Family Medicine; Visit Provider Family Medicine
DX: M71.22 Synovial cyst of popliteal space [Baker], left knee (principal); Z12.11 Encounter for screening for malignant neoplasm of colon
CPT/HCPCS: 76882; 82274

== ENCOUNTER → 2023-09-14 10:13 | Outpatient (CLI) | payer MEDICARE, OTHER, SELFPAY ==
[2021-06-25 18:22] VITALS: BMI 26.6
[2023-09-14 12:03] LABS: Add Manual Diff / Slide Review NO; Basophils Absolute Auto 0 /uL (0-100); Basophils Percent Auto 0.5 % (0-2); Eosinophils Absolute Auto 300 /uL (0-450); Eosinophils Percent Auto 6.8 % (2-4); Hematocrit 44.1 % (41-53); Lymphocytes Absolute Auto 1200 /uL (1100-4500); Lymphocytes Percent Auto 24.2 % (25-40); Mean Corpuscular Hemoglobin 31.9 PG (26-34); Mean Corpuscular Volume 93.8 fL (80-100); Monocytes Absolute Auto 600 /uL (0-900); Monocytes Percent Auto 11.3 % (3-14); Neutrophils Absolute Auto 2900 /uL (1500-7000); Neutrophils Percent Auto 57.2 % (50-75); Platelet Count 142 X10^3/uL (150-400); Red Blood Cell Count 4.71 X10^6/uL (4.5-5.9)
[2023-09-14 12:10] LABS: Hemoglobin A1C% w Est Avg Glu 5.8 % (4.0-6.0)
[2023-09-14 12:21] LABS: BUN Creatinine Ratio 20.2 (6-22); Blood Urea Nitrogen 17 mg/dL (9-20); Calcium 9.5 mg/dL (8.4-10.2); Carbon Dioxide 30 mmol/L (22-32); Chloride 103 mmol/L (98-107); Estimated Glomerular Filt Rate > 60 mL/min (>60); Glucose 91 mg/dL (80-110); HEMOLYSIS 17 (0-50); Potassium 4.2 mmol/L (3.4-5.1); Sodium 140 mmol/L (137-145)
[2023-09-14 12:29] LABS: Prealbumin 28.1 mg/dL (17.6-36.0)
== END ==
PROVIDERS: Family Provider Family Medicine; PCP Family Medicine; Referring Provider Orthopaedic Surgery Adult Reconstructive Orthopaedic Surgery; Visit Provider Orthopaedic Surgery Adult Reconstructive Orthopaedic Surgery
DX: Z01.818 Encounter for other preprocedural examination (principal); R73.9 Hyperglycemia, unspecified; R77.0 Abnormality of albumin; E55.9 Vitamin D deficiency, unspecified; Z01.812 Encounter for preprocedural laboratory examination
CPT/HCPCS: 36415; 80048; 82306; 83036; 84134; 85025; 93005; 93010

== ENCOUNTER → 2023-09-27 11:45 | Outpatient (CLI) | payer MEDICARE, OTHER, SELFPAY ==
[2021-06-25 18:22] VITALS: BMI 26.6
--- NOTE | 2023-09-27 11:47 | DI.MRI.S_ITS ---
PROCEDURE: MR CERVICAL SPINE WO CON INDICATIONS: Spinal stenosis, cervical;Spondylosthoracic region TECHNIQUE: Noncontrast sagittal T1 spin echo and T2 fast spin echo, sagittal STIR, foraminal oblique sagittal T2 fast spin echo, and axial gradient echo or T2 fast spin echo through the cervical spine. COMPARISON: [facility], MR, MR CERVICAL SPINE WO CON, 10/28/2020, 13:09. [facility], MR, MR THORACIC SPINE WO CON, 09/27/2023, 12:16. FINDINGS: Image quality: This examination is limited by involuntary motion artifact. Alignment and Curvature: There is normal bony alignment. Bone Marrow: Marrow demonstrates normal overall signal. Spinal Cord: Visualized spinal cord has normal size and signal. No cerebellar tonsillar herniation. Paraspinous Soft Tissues: No paravertebral masses. Prevertebral soft tissues are normal in thickness. C2-C3: The disc height and disk signal are well-preserved. A mild degree of generalized disc osteophyte complex is seen. Mild facet joint hypertrophy is seen. There is mild right-sided and no left-sided neural foraminal narrowing. Mild central canal narrowing is seen. These imaging findings have progressed compared to the prior study. C3-C4: The disc height is well-preserved. Loss of disc signal is seen at this level. A mild degree of generalized disc osteophyte complex is seen. Neck is there is a central disc osteophyte protrusion. Moderate facet hypertrophy is seen, left worse than right. There is moderate left-sided and mild right-sided neural foraminal narrowing. Mild to moderate central canal narrowing is seen, with associated mass effect upon the ventral spinal cord. There is slight progression compared to 2019. C4-C5: The disc height is well-preserved. Loss of disc signal is seen at this level. Moderate generalized disc osteophyte complex is seen. There is a central disc osteophyte protrusion. Uncovertebral joint hypertrophy is seen at this level. Moderate facet joint hypertrophy is seen. There is moderate to severe left-sided and moderate right-sided neural foraminal narrowing. Moderate central canal narrowing is seen. There is associated mass effect upon the ventral spinal cord. These degenerative changes are worse than in 2020. C5-C6: Mild loss of disc height is seen. Loss of disc signal is seen. Moderate disc osteophyte complex is seen, which is eccentric to the right. There is a central/right disc osteophyte protrusion, as on series 5, image 30. Moderate facet joint hypertrophy is seen. There is moderate to severe bilateral neural foraminal narrowing seen, right worse than left. At least moderate central canal narrowing is seen, with associated mass effect upon the ventral spinal cord. These degenerative changes are slightly worse than in 2020. C6-C7: The disc height is well-preserved. Loss of disc signal is seen at this level. Moderate generalized disc osteophyte complex is seen. Moderate facet joint hypertrophy is seen. There is at least moderate left-sided and moderate right-sided neural foraminal narrowing. Mild to moderate central canal narrowing is seen. When comparison is made with the prior images, these findings are similar. C7-T1: No significant abnormality is seen. IMPRESSION: Multiple levels of cervical spine degenerative change can be seen, which are overall most prominent at the C5-C6 level. The degenerative changes have progressed at several levels compared to 2020. Dictated by: Roderick Barriga M.D. on 09/27/2023 at 16:52 Approved by: Roderick Barriga M.D. on 09/27/2023 at 16:56
--- NOTE | 2023-09-27 11:48 | DI.MRI.S_ITS ---
PROCEDURE: MR THORACIC SPINE WO CON INDICATIONS: Spinal stenosis, cervical;Spondylosthoracic region TECHNIQUE: Noncontrast sagittal T1 spine echo and T2 fast spin echo, sagittal STIR, and T2 fast spin echo through the thoracic spine. COMPARISON: [facility], MR, MR CERVICAL SPINE WO CON, 09/27/2023, 12:16. [facility], MR, MR LUMBAR SPINE WO CON, 02/03/2022, 9:54. FINDINGS: Image quality: Excellent. Alignment and Curvature: There is normal bony alignment. Bone Marrow: Marrow is of normal overall signal. At the superior endplate of the T9 level, there is a subacute appearing compression deformity, with an associated Schmorl's node, with 20-30% loss of height. No posterior displacement of fracture fragments can be seen. Spinal Cord: Visualized spinal cord is normal in size and signal. Paraspinous Soft Tissues: No paravertebral masses. Miscellaneous: At the T8-T9 level, there is a central disc protrusion, with moderate central canal narrowing and mild mass effect upon the ventral spinal cord, as on series 10, image 12. There is [id number] left-sided neural foraminal narrowing seen at this level. At the T8-T9 level, there is central disc bulge seen, with mild central canal narrowing. [id number] bilateral neural foraminal narrowing can be seen. At the T11-T12 level, there is mild disc bulge seen, with mild central canal narrowing. There is at least moderate bilateral neural foraminal narrowing seen at this level, left worse than right. Several levels of [id number] neural foraminal narrowing can be seen elsewhere. IMPRESSION: There is a subacute appearing compression deformity at the superior endplate of T9, with an associated Schmorl's node. Multiple levels thoracic spine degenerative change can be seen, which are overall worst at the T8-T9 level. Dictated by: Roderick Barriga M.D. on 09/27/2023 at 16:57 Approved by: Roderick Barriga M.D. on 09/27/2023 at 17:00
== END ==
PROVIDERS: Family Provider Family Medicine; PCP Family Medicine; Referring Provider Physical Medicine & Rehabilitation; Visit Provider Physical Medicine & Rehabilitation
DX: M48.02 Spinal stenosis, cervical region (principal); M47.812 Spondylosis without myelopathy or radiculopathy, cervical region; M47.814 Spondylosis without myelopathy or radiculopathy, thoracic region; M51.44 Schmorl's nodes, thoracic region
CPT/HCPCS: 72141; 72146

== ENCOUNTER 2023-11-22 08:37 | Day surgery (SDC) | payer MEDICARE, OTHER, SELFPAY ==
[2021-06-25 18:22] VITALS: BMI 26.6
[2023-11-14 12:42] VITALS: BMI 28.5
[2023-11-22] VITALS (10 sets, daily range): BP systolic 89–162; BP diastolic 41–95; PULSE 60–79; RESP 12–19; TEMP 35.9–37.1; O2SAT 91–99; BMI 29.0
--- NOTE | 2023-11-22 06:00 | DI.RAD.S_ITS ---
PROCEDURE: XR KNEE RT 1TO2V INDICATIONS: right total knee arthroplasty TECHNIQUE: 2 view(s) of the knee acquired. COMPARISON: [facility], , KNEE 3V RIGHT, 03/16/2012, 11:09. FINDINGS: Bones: Patient is status post knee joint arthroplasty. Hardware components are in expected positions. Visualized bony structures are intact. Soft tissues: Overlying postoperative changes are noted. IMPRESSION: Expected post-operative appearance of a knee arthroplasty. Dictated by: Dara Trujillo M.D. on 11/22/2023 at 19:45 Approved by: Dara Trujillo M.D. on 11/22/2023 at 19:45
[2023-11-22] MEDS: LACTATED RINGERS 1,000 ML 42 ML IV (09:25)
--- NOTE | 2023-11-22 11:55 | PM.PREOP ---
Pre-operative Note Interval Note History & Physical reviewed/Exam performed by Physician: Yes Changes to H&P: No
[2023-11-22] MEDS: TRANEXAMIC ACID 1,000 MG VIAL 1000 MG INJ ×2 (12:50→14:50)
[2023-11-22] MEDS: CEFAZOLIN 2 GM/100 ML PREMIX 100 ML IV ×2 (12:50→20:43)
[2023-11-22] MEDS: ROPIVACAINE/EPI/CLONIDINE/KET 50 ML SYRINGE INJ (13:12)
--- NOTE | 2023-11-22 14:53 | SUR.OPER ---
Supine on padded OR bed. Pillow under head, arms secured on padded armboards <90 degree abduction. Safety belt across torso. Non-operative leg secured with tape over blanket over lower leg. Operative leg secured in DeMayo/Jayant/Nathe positioner. Foam padded brace at thigh of operative leg.
--- NOTE | 2023-11-22 14:58 | P.OP_ITS ---
Operative Date/Time/Diagnoses Date of procedure: 11/22/23 Pre-op diagnosis: Right knee arthritis Post-op diagnosis: same Procedure & Clinicians Procedure: Right total knee arthroplasty Same procedure as scheduled: Yes Surgeon: Demond Little Transitional Care Liaison: Giovany Castro Operative Notes Estimated Blood Loss (mL): 150 Tourniquet time (min): 96 Procedure in detail: Implants: Tere Persona Medial Congruent Total Knee Arthroplasty: * Size 10 Cruciate Retaining Femoral Component * Size F Tibial Component * Size 10 Medial Congruent Polyethylene Insert * Unresurfaced Patella Procedure Summary: I initially attempted to perform a gap balanced knee. When setting the femoral rotation for the flexion gap however the gap test and turn up technician indicated that 0? of external rotation would provide balanced gaps. In order to avoid provoking patellar maltracking by relatively internally rotating the femur I therefore performed a measured resection knee instead with 3? of external rotation. Once trials were in place the gaps were symmetric and balanced and I did not note the medial sided laxity which had been indicated by the tensioner. Procedure in Detail: This patient was seen preoperatively and evaluated for knee pain which was refractory to numerous nonoperative treatment modalities. Their hip pain correlated with radiographic changes demonstrating significant degeneration in the knee joint. The risks and benefits of continued nonoperative management versus operative management were discussed at length and all of the patient?s questions were answered. Additional educational materials providing further details beyond our discussion in clinic were provided via a publicly available patient education video which included the incidence of medical complications associated with total knee arthroplasty, reasons for revision following total knee arthroplasty, and patient satisfaction rates following total knee arthroplasty. That video can be accessed at [email or web address] . With this understanding of the risks inherent to the procedure, the patient elected to move forward with operative management. Following preoperative optimization, the patient was scheduled for surgery. The patient was met in the preoperative holding area the day of the procedure and all questions were answered. The patient?s nares were swabbed with betadine in order to decolonize them from MRSA. Informed consent was signed and the operative limb was marked with indelible ink.? The patient was brought back to the operating room where anesthesia was induced. The patient was transferred to the operating table and all bony prominences were padded. The operative site was prepped and draped in the usual sterile fashion. A second prep stick was utilized following drape placement. The incision was marked corresponding to the medial aspect of the tibial tubercle and the patella. Ioban was wrapped circumferentially around the knee. Prior to incision, tranexamic acid and cefazolin were administered. Templating images were displayed. A timeout procedure was performed verifying the patient?s identity, medical comorbidities, allergies, relevant medications, anesthesia type and the surgical plan. All present were in agreement. The assistance of a physician pharmacy technician assistant was required for positioning, room setup, soft tissue retraction and wound closure. Without this assistance, the procedure would have been significantly more challenging and time consuming.?? The tourniquet was inflated prior to incision. I made an anterior incision over the knee, dissected through the subcutaneous tissues and identified the lateral border of the VMO. Medial and lateral soft tissue flaps were developed. A medial parapatellar arthrotomy was performed ensuring that adequate capsular tissue would remain for closure at the conclusion of the procedure. The hip was brought into extension and the medial soft tissues were released off the joint line of the tibia. Tissue overlying the distal anterior femur was released to allow for later assessment for anterior notching but left in place. A portion of the retropatellar fat pad was excised while protecting the patellar tendon. The patella was everted. The patella was not resurfaced. Osteophytes were excised and a lateral facetectomy was performed. The patella was released from its ev erted position.?? I flexed the knee to 90 degrees and placed retractors to allow access to the notch. An opening reamer was used to gain access to the femoral canal and an intramedullary suzy was introduced into the canal. Diaphyseal fit was obtained in order to allow a distal femoral resection at 5 degrees relative to the anatomic axis, thereby aiming to achieve mechanical alignment of the eventual implant. A +2 resection was planned and assessed using an last wing. I then made the cut using a sagittal saw. This provided additional access to the femoral notch. The ACL and PCL were excised. Retractors were placed on the lateral and medial tibia. I hyperflexed the knee while externally rotating it to sublux the tibia anteriorly. I placed a PCL retractor posteriorly and used this to provide additional anterior subluxation. The remainder of the PCL root was released. An intramedullary reamer was used in the ACL footprint to provide access to the tibial canal. An intramedullary suzy was placed which achieved diaphyseal fit to allow a resection perpendicular to the anatomic and mechanical axes of the tibia, thereby aiming to achieve mechanical alignment of the eventual implant. A +4 resection off the medial tibia was planned and the tibial cutting jig was pinned in place. I evaluated the cut depth, varus-valgus alignment and slope of the planned tibial resection and deemed them satisfactory. I cut the tibia with a sagittal saw while using retractors to protect the MCL, patellar tendon, and posterolateral structures.? The knee was repositioned in extension and the Fuzion soft tissue balancing gauge was introduced. This demonstrated that there was equal tension in the medial and lateral compartments of the knee with the hip in full extension and no additional soft tissue releases were necessary. When 60 pounds of force was applied to the Fuzion device, the extension gap opened to 10 mm. I moved the knee into 90 degrees of flexion, and the Fuzion device was recalibrated by removing a 9 mm erika to allow assessment of the flexion gap. The Fuzion was placed perpendicular to the resected surface of the tibia and the resected surface of the distal femur. Sixty pounds of traction was applied to match the tension of the extension gap. This externally rotated the femur to 0 degrees. Noting this relative internal rotation of the femur, I elected to transition to a measured resection strategy. I measured for a 3 degree external rotation and pinned this in place. I measured for a size 10 femoral component. The Fuzion block was also used to assess flexion gap symmetry. An last wing was used to ensure there would be no anterior notching. Retractors were placed to protect the soft tissues during resection. Captured cuts were performed with a sagittal saw for the anterior and posterior femur as well as the corresponding chamfers.? Trial components were placed and the construct was assessed. Range of motion was assessed by ensuring the knee could achieve full extension and assessing maximum passive knee flexion by elevating the femur and allowing the heel to passively fall towards the buttock. Gap symmetry was assessed by stressing the medial and lateral compartments in both extension and flexion. Laxity was assessed in both extension and flexion and the polyethylene trial was adjusted with shims as necessary. Patellar tracking was assessed with knee flexion. Once satisfied with the construct, I moved forward with implant insertion. Lug holes were drilled in the femur and the tibia was prepped ensuring appropriate sizing and rotation relative to the tibial tubercle.?? The bony ends were irrigated and cement was prepared. Portions of the anterior chamfer cut were utilized as cement restrictors in the femur and tibia where intramedullar rods had been utilized. Cement was placed on the entirety of the undersurface of both the tibial and femoral components. Cement was placed onto the dry tibia and pressurized into the cancellous bone. I impacted the tibial component into place. Cement was removed. The tibia was reduced underneath the femur and placed cement onto the dry surface of the resected femur. I placed the femoral component as well as the intended polyethylene trial. Cement was removed from around the femur. I brought the knee into extension and manually pressurized the construct by pushing on the heel while the cement dried. The knee was bathed in a dilute mixture of betadine and peroxide. A mixture of Ropivacaine, Epinephrine, Clonidine and Toradol was infiltrated throughout the soft tissues into structures including the VMO, patellar tendon, quadriceps tendon, MCL and femoral periosteum. A low adductor canal block was also performed using this mixture unless one had been placed preoperatively by anesthesia. The knee was copiously irrigated with pulse lavage. Once cement had been allowed to dry the knee was again trialed. Range of motion was assessed by ensuring the knee could achieve full extension and assessing maximum passive knee flexion by elevating the femur and allowing the heel to passively fall towards the buttock. Gap symmetry was assessed by stressing the medial and lateral compartments in both extension and flexion. Laxity was assessed in both extension and flexion and the polyethylene trial was adjusted with shims as necessary. Patellar tracking was assessed with knee flexion. The tourniquet was let down and the polyethylene trial was removed. I inspected the knee inspected for excess cement and any residual bleeding. Once hemostasis was achieved I inserted the final polyethylene and ensured appropriate engagement of the dovetail locking mechanism.?? The arthrotomy was closed with absorbable interrupted suture ensuring that this extended to the top of the arthrotomy. This was backed up with running barbed suture throughout the arthrotomy. The skin was closed with 2-0 and 3-0 sutures. Surgical glue was applied and a soft dressing was placed.?The sponge, instrument and needle counts were reported as being correct at the end of the case.??No obvious complications occurred. The patient was transferred from the operating table back to a stretcher. The patient emerged from anesthesia without difficulty and was taken to the PACU in a stable condition.? Plan for aftercare: * Transfer to floor following recovery in PACU * Transition from hospital gown to regular clothing immediately upon arrival on floor * Weightbearing as tolerated * Mobilization as soon as the patient has recovered from anesthesia. If physical therapists are unavailable at the time the patient is ready to ambulate, then nursing staff should help patient ambulate * Aspirin 81 twice per day for DVT prophylaxis * Multimodal pain regimen with no IV opioids ordered * Anticipate mobilization with physical therapy today and discharge home either later today or tomorrow morning * Follow up at [facility] in 2 weeks * Detailed postoperative instructions available at [email or web address]
[2023-11-22] MEDS: ACETAMINOPHEN 325 MG TABLET 650 MG PO ×2 (16:09→21:03)
[2023-11-22] MEDS: PREGABALIN 75 MG CAPSULE 225 MG PO ×2 (16:09→20:43)
[2023-11-22] MEDS: IBUPROFEN 600 MG TABLET PO ×2 (16:09→21:04)
[2023-11-22] MEDS: LACTATED RINGERS 1,000 ML 100 ML IV (16:10)
--- NOTE | 2023-11-22 18:36 | PM.PN.1 ---
Subjective Subjective Interval history: Patient seen postoperatively. His spinal has worn off. He has not yet ambulated. Physical therapists have gone home for the night so I have requested the nursing staff ambulate in the halls with him. After my visit with him I did see him walking in the halls with a walker. He has minimal discomfort in his knee. He has not yet urinated. We are going to see if ambulating stimulates his bladder and allows him to urinate. He has not had urinary retention issues in the past. We will proceed with in and out catheterization if he remains unable to urinate. Currently anticipate discharge home tomorrow Exam Vital Signs (past 8 hours): - 11/22/23 15:13 11/22/23 15:18 11/22/23 15:26 Temperature 98.4 F Pulse Rate 68 79 68 Respiratory Rate 12 12 16 Blood Pressure 89/57 L 98/41 L 108/74 Pulse Oximetry 94 97 98 Oxygen Delivery Method Room Air Room Air Room Air Oxygen Flow Rate 11/22/23 15:36 11/22/23 15:50 11/22/23 16:20 Temperature 97.3 F L 96.7 F L Pulse Rate 66 60 65 Respiratory Rate 16 16 16 Blood Pressure 114/78 138/80 142/82 H Pulse Oximetry 99 97 98 Oxygen Delivery Method Room Air Oxygen Flow Rate 0 0 11/22/23 16:50 11/22/23 17:50 Temperature 97.7 F 96.7 F L Pulse Rate 64 73 Respiratory Rate 16 16 Blood Pressure 130/68 127/82 Pulse Oximetry 99 91 Oxygen Delivery Method Oxygen Flow Rate 0 0 Oxygen Delivery Method Room Air Oxygen Flow Rate 0 [facility] Medical History (Updated 11/14/23 @ 13:25 by Eliz Rivas RN) History of COVID-19 (2021) HLD (hyperlipidemia) HTN (hypertension) Syncope NSAID long-term use History of duodenal ulcer Rosacea Osteoarthritis of hand, left Disc degeneration, lumbar Other spondylosis with radiculopathy, lumbar region PUD (peptic ulcer disease) Osteoarthritis Foot pain (~2009) Carpal tunnel syndrome (~1993) Surgical History (Updated 11/14/23 @ 12:43 by Eliz Rivas RN) History of esophagogastroduodenoscopy (EGD) (01/24/22) History of colonoscopy Anesthesia S/P laparoscopic surgery (~08/2014) Family History Father Heart disease Sjogren's disease Grandfather No problems noted. Mother Alive and well Sister Sjogren's disease Brother Alive and well Other Congestive heart failure Social History household members: spouse Smoking Status: Former smoker alcohol intake: current Quality VTE Deep Vein Thrombosis/Pulmonary Embolism Present on Admission: No
--- NOTE | 2023-11-22 19:02 | PC.NURSE ---
pt reported last void was this morning at 0300. pt c/o of numbness buttocks area, pt stood up and tried to void but failed. bladder scan was 795cc. provider came in the room and said to ambulate pt in hallways and do in and out cath when pt reports discomfort regardless of the amount of bladder scan. pt ambulated in hallways, still unable to void.
[2023-11-22] MEDS: ATORVASTATIN 20 MG TABLET 40 MG PO (20:43)
[2023-11-22] MEDS: PANTOPRAZOLE DR 20 MG TABLET PO (20:43)
[2023-11-22] MEDS: ASPIRIN EC 81 MG TABLET PO (20:43)
[2023-11-22] MEDS: DOCUSATE 100 MG CAPSULE PO (20:43)
[2023-11-22] MEDS: ONDANSETRON 4 MG ODT PO (21:34)
[2023-11-22] MEDS: ZOLPIDEM 5 MG TABLET PO (21:48)
--- NOTE | 2023-11-22 23:12 | PC.NURSE ---
Addendum entered by Nely Urban R.N. 11/22/23 23:15: Patient had 1500 ml emesis, reports he feels much better. Original Note: Patient ambulated in dewitt and remains unable to void. Bladder scan > 600cc, reports mild discomfort. Straight cath with 600cc output. Tolerated well.
[2023-11-23] MEDS: OXYCODONE IR 5 MG TABLET PO ×5 (00:41→21:43)
[2023-11-23 02:50] VITALS: BP 130/81; PULSE 79; RESP 16; TEMP 36.6; O2SAT 97
[2023-11-23] MEDS: IBUPROFEN 600 MG TABLET PO ×4 (04:04→21:43)
[2023-11-23] MEDS: ACETAMINOPHEN 325 MG TABLET 650 MG PO ×4 (04:04→21:43)
[2023-11-23] MEDS: CEFAZOLIN 2 GM/100 ML PREMIX 100 ML IV (04:05)
[2023-11-23 06:15] LABS: Hematocrit 35.9 % (41-53); Hemoglobin 12.4 g/dL (13.5-17.5)
[2023-11-23 07:00] VITALS: BP 161/91; PULSE 90; RESP 16; TEMP 35.9; O2SAT 97
--- NOTE | 2023-11-23 07:54 | PM.PNPO.1 ---
Subjective Subjective Interval history: Patient is a pleasant 63 year old male who is POD#1 s/p R TKA with Dr. Little. Patient reports he is doing well overall, has been able to walk the hallways 3x already and ambulate around his room well with a walker. Pain is moderate but well controlled with oral pain medication. Has not been able to urinate on his own still despite being up and mobile. Plans to d/c to home when able to where he lives with his who is willing to help patient during his post-op recovery, no steps at his home. Denies fever, chills, chest pain, cough, SOB. Exam Vital Signs (past 8 hours): - 11/23/23 02:50 Temperature 98 F Pulse Rate 79 Respiratory Rate 16 Blood Pressure 130/81 Pulse Oximetry 97 Oxygen Flow Rate 0 Oxygen Delivery Method Room Air Oxygen Flow Rate 0 Const General: cooperative, healthy appearing and comfortable Resp Effort & Inspection: normal respiratory effort and able to speak in complete sentences Cardio Rate: regular rate Skin General: no rashes or lesions noted Other: Clean and dry dressing in place over the right knee. Neuro General: patient alert, patient awake and patient oriented x3 Sensory Exam: no sensory deficits noted Other: Coordination intact, sensation intact to all toes equally, bilaterally. Extrem Other: 5/5 strength with dorsi and plantar flexion. Calves soft and non-tender bilaterally. Able to flex and extend right knee with mild-moderate pain. Objective Labs 11/23/23 05:55 Labs: Laboratory Results - last 24 hr 11/23/23 05:55 Hgb 12.4 L Hct 35.9 L [facility] Medical History (Updated 11/14/23 @ 13:25 by Eliz Rivas RN) History of COVID-19 (2021) HLD (hyperlipidemia) HTN (hypertension) Syncope NSAID long-term use History of duodenal ulcer Rosacea Osteoarthritis of hand, left Disc degeneration, lumbar Other spondylosis with radiculopathy, lumbar region PUD (peptic ulcer disease) Osteoarthritis Foot pain (~2009) Carpal tunnel syndrome (~1993) Surgical History (Updated 11/14/23 @ 12:43 by Eliz Rivas RN) History of esophagogastroduodenoscopy (EGD) (01/24/22) History of colonoscopy Anesthesia S/P laparoscopic surgery (~08/2014) Family History Father Heart disease Sjogren's disease Grandfather No problems noted. Mother Alive and well Sister Sjogren's disease Brother Alive and well Other Congestive heart failure Social History household members: spouse Smoking Status: Former smoker alcohol intake: current Assessment & Plan Post-op Postoperative Procedures: Procedures Operation Date: 11/22/23 10:45 Actual Procedure Side Surgeon p Total Knee Arthroplasty Right Demond Little MD Postoperative day: 1 Postoperative status: doing well Postoperative plan narrative: -Will give patient single dose of flomax to aid in patient urinating on his own -Can d/c to home today if he urinates on his won -Weight bearing as tolerated, continue to work on mobilization with outpatient PT -Aspirin 81 twice per day for DVT prophylaxis -Follow up with [facility] in 2 weeks for post-op appt -Continue multimodal pain management, post-op prescriptions have been previously sent in by Dr. Little Quality VTE Deep Vein Thrombosis/Pulmonary Embolism Present on Admission: No
[2023-11-23] MEDS: polyethylene glycoL 3350 17 GM POWD.PACK PO (08:42)
[2023-11-23] MEDS: lisinopriL 10 MG TABLET 20 MG PO (08:43)
[2023-11-23] MEDS: PREGABALIN 75 MG CAPSULE 225 MG PO ×3 (08:43→20:40)
[2023-11-23] MEDS: ASPIRIN EC 81 MG TABLET PO ×2 (08:43→20:39)
[2023-11-23] MEDS: DOCUSATE 100 MG CAPSULE PO ×2 (08:43→20:38)
[2023-11-23] MEDS: PANTOPRAZOLE DR 20 MG TABLET PO ×2 (08:43→20:39)
--- NOTE | 2023-11-23 08:54 | CM.DANOTE ---
Initial DCP Assessment Visit Reviewed EMR for pt status and anticipated d/c needs. Met with pt at bedside to introduce self and role, pt found to be alert, oriented, able to participated in this assessment. Payor: Medicare Attending: Dr. Little Pt is a 63 year-old M placed in a [facility] bed post-op day 1 following a total L-knee arthroplasty. Pt is recovering well and was able to ambulate with AC nurse last evening following surgery. Pt shares that he has all necessary DME ready at home, his will plan to transport home. No anticipated home d/c needs identified at this time. Discharge Planning/Care Management Advanced directive, confirm from FAMILY Start: 11/22/23 15:58 Freq: Q24H Status: Active Protocol: Document 11/22/23 16:06 CLL (Rec: 11/22/23 16:07 CLL [id number]) Advance Directive, confirm on record Time 16:06 Person contacted patient Copy received No CM Discharge Assessment Start: 11/23/23 08:36 Freq: Status: Active Protocol: Document 11/23/23 08:37 DPL (Rec: 11/23/23 08:54 DPL [id number]) Discharge Planning Assessment Assigned Pharmacy Data Analyst ROWDY Contreras Advance Directives? No History Provided By Patient,Medical Record Has Patient been admitted in last 30 No days? Prior Living Arrangements House Household Members spouse Type of transporation used prior to Drives own vehicle admit Willing to Return to Facility? No Independent with ADL's Yes Is patient alert and oriented? Yes Caregiver for Another No DME Already Rented / Owned FWW / Walker,Cane,Crutches Patient/Family Preference OP PT Therapy Comment Pt will f/u w/Ortho in 2-weeks , at which time they will discuss a plan for OP therapies. Barriers to Discharge No Discharge Plan Home Referrals Initiated None needed Whiteboard Updated in Patient Room with Yes name and ext. # of Pharmacy Data Analyst Review Status In Process Please Provide Date Initial DC 11/23/23 Assessment Was Performed Pre-Anesthesia Assessment Start: 11/14/23 12:42 Freq: Status: Active Protocol: Document 11/14/23 12:42 CAB (Rec: 11/14/23 13:43 CAB [id number]) Pre-Anesthesia Assessment Preferred Name Jose Patient Information Reviewed Via Phone Assessment Assessment Completed With Patient Diagnostic Results BMP/CMP,CBC,EKG Comment Labs/EKG @ 09/14/23 Primary Care Provider Antonio Clark Seen Specialist in Last 12 Months Yes Specialist Seen Orthopedist Primary Language Armenian Preferred Language Armenian E Commerce Developer Required No Height 185.42 cm Weight 97.976 kg Body Mass Index (BMI) 28.5 Hearing Ability Normal Visual Assist Glasses Dentition Type Teeth, Natural Present,Teeth, Missing Barriers to Learning None Hx Anesthesia Reactions No Hx Family Anesthesia Reaction No Hx Malignant Hyperthermia No Hx Blood Transfusions Yes: r/t anemia approx 2013 Hx Blood Transfusion Reaction No Anesthesia Review Requested No Early Intervention Specialist No alcohol intake current alcohol intake frequency a few times a month Smoking Status Former smoker how long ago did patient quit smoking approx 15 years ago Substance Use Type marijuana Comment Pt advised not to smoke marijuana 24 hours prior Pain Present Pain Reported Musculoskeletal Symptoms Abnormal Gait,Back Pain, Difficulty Walking,Joint Pain, Neck Pain History of Falling (Recent or History of No ) Patient is completely paralyzed or No completely immobile Mental Status Oriented to own ability Is patient on oxygen? No Does patient have LIM/SOB No Hx Sleep Apnea No CPAP/BIPAP use not prescribed Currently Taking a Beta Germaine No Can You Climb a Flight of Stairs Without Yes SOB Hx Chest Pain No Hx SOB No Hx Syncope or Dizziness Yes Anti-Coagulant Therapy No Has a Story Teller No Cardiac Testing No Hx Pacemaker/ICD No Pacemaker Rep Required? No Cardiac Clearance Received Not Applicable Diet Type At Home Regular Dysphagia No Gastrointestinal Symptoms None Urinary Catheter Present No Hx Urinary Self Catheterization No Diabetes No HgbA1C 5.8 Date 09/14/23 Hx Drug Resistant Organism No Presence of External or Internal Medical No Devices Received a COVID vaccine? Yes Received all doses? Yes Marital Status Lives With spouse Current Living Arrangements House Number of Floors (Floors) One Floor Support System Spouse Does the Patient Have Assistance After Yes Surgery Patient Discharge Plan Description Return Home Comment Pt understands possible same day surgery Feels Safe in Current Environment Yes Been Physically Hurt or Threatened By a No Person in Current Environment Do you have thoughts of harming yourself None or others? Are you currently considering suicide? No Do you have a plan to hurt yourself or No Plan others? Do You Have Any Spiritual Beliefs That No May Affect Your HC Choices? Do You Have Any Cultural Practices That No May Affect Your HC Choices? Who Can We Speak to About Patient's Care Family, friends Identifying Code for Release of Patient Declines to issue Information Health Care Proxy/Next of Kin Celi Alberto () Health Care Proxy Emergency Contact Name Blas (son) Emergency Contact Advance Directives? No Power of Trial Judge No PAC Instructions Durable medical equipment, Medications to take/avoid, Nasal antibiotic,No ETOH/ petroleum product on skin DOS, NPO,Post-op transportation,Pre -surgical wash,Sensory aids, Sturdy shoes/comfortable clothes,Do not bring valuables and remove jewelry
--- NOTE | 2023-11-23 09:40 | PT.IIE ---
Current Diagnoses Spinal stenosis, lumbar region with neurogenic claudication (11/22/23) Strain of muscle, fascia and tendon at neck level, initial encounter (11/22/23) Surgery Performed Operation Date: 11/22/23 10:45 Actual Procedures p Total Knee Arthroplasty(Right) - Demond Little MD Surgical History (Last Updated 11/14/23 @ 12:43 by Eliz Rivas, RN) Anesthesia History of colonoscopy History of esophagogastroduodenoscopy (EGD) (01/24/22) S/P laparoscopic surgery (~08/2014) Medical History (Last Updated 11/14/23 @ 13:25 by Eliz Rivas RN) Carpal tunnel syndrome (~1993) Disc degeneration, lumbar Foot pain (~2009) History of COVID-19 (2021) History of duodenal ulcer HLD (hyperlipidemia) HTN (hypertension) NSAID long-term use Osteoarthritis Osteoarthritis of hand, left Other spondylosis with radiculopathy, lumbar region PUD (peptic ulcer disease) Rosacea Syncope Physical Therapy Inpatient Evaluation/Re-Eval M1 PT/OT-IP Prior Functional Status Start: 11/23/23 12:24 Freq: NEEDED Status: Active Protocol: Document 11/23/23 09:40 AB (Rec: 11/23/23 12:49 AB [id number]) Medical Review Prior Functional Status Medical History Reviewed Yes Communication able to make needs known Mobility and Gait pt stated that he was independent with all mobilities and ambulation without AD Activities of Daily Living and IADL's per OT note: Able to do all ADl and IADl needs but had pain. Social History Household Members spouse Living Arrangements House Number of Floors (Floors) One Floor Number of Stairs To Enter/Railing? 2 platform steps without rails to enter the house Home Environment High Toilet,Walk in Shower Home Equipment Four Wheel Walker,Straight Cane,Crutches,Shower Seat without Backrest,Hand Held Shower,Long Handled Shoe Horn, Horticulture Supervisor,Grab Bars In Shower Employment Status [employer] Employed Additional Social History Comment pt works at [employer] M2 PT-IP Current Condition Start: 11/23/23 12:24 Freq: NEEDED Status: Active Protocol: Document 11/23/23 09:40 AB (Rec: 11/23/23 12:49 AB [id number]) Physical Therapy Current Condition Current Condition Evaluation Date 11/23/23 Treatment Diagnosis s/p R TKA; difficulty in walking Onset Date 11/22/23 M3 PT-IP Subjective Start: 11/23/23 12:24 Freq: NEEDED Status: Active Protocol: Document 11/23/23 09:40 AB (Rec: 11/23/23 12:49 AB [id number]) Subjective Physical Therapy Visit Type Type Initial Evaluation Visit Start Time 09:40 Visit Stop Time 10:22 Total Visit Minutes 42 Number of MECHANICS SUPERVISOR Visits 0 Physical Therapy Visit Comments Patient Comments pt is agreeable to do PT Therapy Pain Assessment Pain When Pain Assessed At Rest Pain Present Pain Present Pain Reported Location Right Knee Intensity 3 Scale Used Numeric (0 - 10) Pain Management Techniques Distraction,Modification of Treatment,Re-positioning, Timing of Activity with Medications M4 PT-IP Mobility and Gait Start: 11/23/23 12:24 Freq: NEEDED Status: Active Protocol: Document 11/23/23 09:40 AB (Rec: 11/23/23 12:49 AB [id number]) PT-Bed Mobility Assessment Supine to Sit Supine to Sit Standby Assistance Sit to Supine Sit to Supine Standby Assistance PT-Transfer Assessment Sit to and From Stand Sit to and from Stand Standby Assistance,1 Person Assistance,Use of Upper Extremities Equipment Transfer Assistive Device Gait Belt,Front Wheeled Walker Orthotic/Prosthetic Devices or Brace: No Transfers Transfer Destination Chair Transfer Technique ambulated Transfer Ability Level of Assist Standby Assistance,Contact Guard Assistance,1 Person Assistance,Use of Upper Extremities Comments Mobility Comments pt is supine in bed and agreeable to do PT. c/o nausea and nurse is aware. BP : 149/81. obtained PLOF and home set up from pt. completed RLE heel slides prior to mobility. pt has increarse tightness and guarding of L knee. completed supine to sit SBA. able to sit on EOB SBA. BP: 141/81. completed sit to stand SBA and ambulated in room using FWW ~ 40 ft SBA to CGA. pt sat on the chair. educated on stair climbing. pt completed sit to stand from the chair SBA and ambulated towards the platform step using FWW SBA to CGA. completed up/down step using FWW CGA. repeated 2 sets. pt ambulated back to his room and requested to go back to bed. completed sit to supine SBA. positioned pt in bed. call light and table placed within reach. pt stated that he is going to be able to instruct spouse on how to assist him and no caregiver training is needed. Gait Assessment Gait Gait Assistance Required: Standby Assistance,Contact Guard Assist,1 Person Assist Distance (Feet) 40 Able to Maintain Weight Bearing Status Yes During Gait Assistive Devices Assistive Device Gait Belt,Front Wheeled Walker Orthotic/Prosthetic Devices or Brace: No Gait Deviations General Gait Pattern Antalgic,Decreased Stride Length,Decreased Feet Clearance Factors Limiting Gait Function Factors Limiting Gait Function Decreased Activity Tolerance, Difficulty Following Directions,Limited Range of Motion,Pain,Poor Balance,Poor Safety Awareness Stair Climbing Assessment Evaluation Level of Assist On Stairs Contact Guard Assistance,1 Person Assistance Devices Stair Climbing Assistive Devices Front Wheel Walker Technique/Endurance Stair Climbing Direction Ascend and Descend Stair Climbing Technique Step to Step Number of Steps Climbed 1 Query Text: Stair Climbing Set # Repetitions (reps) 2 PT-Balance Assessment Sitting Balance and Reactions Static Sitting Balance Ability Normal Dynamic Sitting Balance Ability Good Standing Balance and Reactions Static Standing Balance Ability Fair Dynamic Standing Balance Ability Fair Device Used FWW M5 PT-IP Objective Assessments Start: 11/23/23 12:24 Freq: NEEDED Status: Active Protocol: Document 11/23/23 09:40 AB (Rec: 11/23/23 12:49 AB [id number]) Orientation Orientation/Cognition Level of Alertness Alert Orientation Name,Age,Place,Situation Language Function Ability No Deficits Noted Safety Awareness Understands Safety Issues Memory Description No Deficits Noted Gross Range of Motion Lower Extremity ROM Assessment Right Impaired Impairments R knee: 10-50 deg Strength Lower Extremity Strength Assessment Right Impaired Hip 4-/5 Knee 3+/5 Sensation Assessment Sensation Gross Sensation WNL Muscle Tone Muscle Tone WNL Yes M6 PT-IP Treatment Start: 11/23/23 12:24 Freq: NEEDED Status: Active Protocol: Document 11/23/23 09:40 AB (Rec: 11/23/23 12:49 AB [id number]) Physical Therapy Treatment Exercises Exercises Heel Slides Education Education Provided Precautions,Weight Bearing Status,Safety M7 PT-IP Assessment and Plan Start: 11/23/23 12:24 Freq: NEEDED Status: Active Protocol: Document 11/23/23 09:40 AB (Rec: 11/23/23 12:49 AB [id number]) PT Summary Assessment and Plan Potential Rehabilitation Potential Fair Status of Condition at Evaluation Evolving Summary Impairments Pain,ROM,Strength,Balance, Coordination,Sensation,Tone, Cognition,Bed Mobility, Transfers,Gait,Activity Tolerance Assessment Summary pt is a 63 y/o M s/p R TKA POD 1. pt is WBAT on RLE. pt requiring SBA to cGA with mobility using fWW and plans to go home with spouse to assist him. pt stated that he has outpt PT set up. pt may go home when medically stable. OT dispensed FWW for home use. Goals Bed Mobility Goal Independent Transfer Goal Independent,Front Wheeled Walker Gait Goal Independent,Front Wheel Walker Gait Distance 200 Other Goals up/down 2 platform steps using FWW mod I Days to Meet Goals 5 Frequency of Treatment Frequency Of Treatment Twice a Day Treatment Plan Physical Therapy Treatment Plan Bed Mobility Training,Transfer Training,Gait Training, Therapeutic Exercise,Balance Retraining,Post Op Education, Discharge Planning,Hot or Cold Pack,Neuromuscular Re-ed, Coordination Retraining,Manual Therapy Weight Bearing Status Weight Bearing Status Weight Bear as Tolerated Allowed Weight Bearing Amount (enter % RLE WBAT or #) (%) Recommendations To Nursing Amount of Assist Needed 1 Person Assist Discharge Recommendations PT Discharge Recommendations Home with Assistance, Outpatient PT Transportation Needs at Discharge Private Vehicle
--- NOTE | 2023-11-23 09:48 | OT.IP.EVAL ---
Current Diagnoses Spinal stenosis, lumbar region with neurogenic claudication (11/22/23) Strain of muscle, fascia and tendon at neck level, initial encounter (11/22/23) Surgery Performed Operation Date: 11/22/23 10:45 Actual Procedures p Total Knee Arthroplasty(Right) - Demond Little MD Past Medical History (Last Updated 11/14/23 @ 13:25 by Eliz Rivas, RN) Carpal tunnel syndrome (~1993) Disc degeneration, lumbar Foot pain (~2009) History of COVID-19 (2021) History of duodenal ulcer HLD (hyperlipidemia) HTN (hypertension) NSAID long-term use Osteoarthritis Osteoarthritis of hand, left Other spondylosis with radiculopathy, lumbar region PUD (peptic ulcer disease) Rosacea Syncope Surgical History (Last Updated 11/14/23 @ 12:43 by Eliz Rivas RN) Anesthesia History of colonoscopy History of esophagogastroduodenoscopy (EGD) (01/24/22) S/P laparoscopic surgery (~08/2014) Occupational Therapy Inpatient Evaluation/Re-Eval M1 PT/OT-IP Prior Functional Status Start: 11/23/23 09:30 Freq: NEEDED Status: Active Protocol: Document 11/23/23 09:30 [facility] (Rec: 11/23/23 09:48 [facility] [id number]) Medical Review Prior Functional Status Medical History Reviewed Yes Communication Independent Mobility and Gait Independent with no devices for ambulation but had pain. Activities of Daily Living and IADL's Able to do all ADl and IADl needs but had pain. Pt works at [employer]. Prior Functional Level (Other details) Pt has a supportive to assist at home. Social History Household Members spouse Living Arrangements House Number of Floors (Floors) One Floor Number of Stairs To Enter/Railing? 2 steps with no rails Home Environment High Toilet,Walk in Shower Home Equipment Four Wheel Walker,Straight Cane,Shower Seat without Backrest,Hand Held Shower,Long Handled Shoe Horn,Wire Insulator, Grab Bars In Shower, crutches M2 OT-IP Current Condition Start: 11/23/23 09:30 Freq: Status: Active Protocol: Document 11/23/23 09:30 [facility] (Rec: 11/23/23 09:48 [facility] [id number]) Occupational Therapy Current Condition Current Condition Evaluation Date 11/23/23 Treatment Diagnosis S/P R TKA Diagnosis Onset Date 11/22/23 M3 OT- IP Subjective and Pain Start: 11/23/23 09:30 Freq: Status: Active Protocol: Document 11/23/23 09:30 [facility] (Rec: 11/23/23 09:48 [facility] [id number]) OT- Subjective Occupational Therapy Visit Type Type Initial Evaluation Visit Start Time 08:25 Visit Stop Time 09:30 Total Visit Minutes 65 Occupational Therapy Visit Comments Patient Comments Pt agreed to get up. Patient/Caregiver Goals TO go home. OT Pain Assessment Pain When Pain Assessed At Rest Pain Present Pain Present Pain Reported Location Right Knee Intensity 5 Scale Used Numeric (0 - 10) M4 OT- IP ADL's Start: 11/23/23 09:30 Freq: Status: Active Protocol: Document 11/23/23 09:30 [facility] (Rec: 11/23/23 09:48 [facility] [id number]) OT VBU-Rlea-Thgiwgv General Evaluation Self-Feeding Ability Independent OT ADL-Grooming General Evaluation Grooming Ability Standby Assistance Areas Needing Assistance Retrieving/Set-up of Grooming Items Comments OT Grooming Comments Able to do while standing at the sink with FWW. OT ADL-Oral Care General Eval Oral Care Ability Independent OT ADL-Dressing General Eval Upper Body Dressing Ability Standby Assistance Comments OT Dressing Comments Assist to help change out his. Pt educated to to kumar his RLE first and take out last during dressing needs. OT ADL-Toileting Comments OT Toileting Comments Pt states sits to urinate just able to go a little, nursing notified and states nursing to cath pt again. Pt has been having trouble to volitionally go on his own at this time. OT ADL-Bathing Bathing Type Bathing Type Sponge Bath General Evaluation Bathing Ability Minimal Assistance Comments OT Bathing Comments Pt able to sponge off his arms and chest and needing assist for his back. M5 OT- IP IADL's Start: 11/23/23 09:30 Freq: Status: Active Protocol: Document 11/23/23 09:30 [facility] (Rec: 11/23/23 09:48 [facility] [id number]) OT-Instrumental Activities of Daily Living Deficits IADL Deficits Identified Deficits Home Safety Awareness Awareness of Need for Assistance at Home Good Awareness Ability to Problem Solve Emergency Able to Problem Solve Situations Medication Management Medication Management No Deficits Identified Money Management Money Management Comments PT's does the bills. Meal Preparation Meal Preparation Caregiver Provides Assist Sales Development Manager Sales Development Manager Caregiver Provides Assist M6 OT- IP Functional Cognition Start: 11/23/23 09:30 Freq: Status: Active Protocol: Document 11/23/23 09:30 [facility] (Rec: 11/23/23 09:48 [facility] [id number]) Cognitive Factors Limiting Selfcare Function Cognitive Ability Level of Alertness Alert Patient Orientation Name,Age,Birthday,Month,Date, Year,Day of Week,Place, Situation Attention Span Ability Capable of Focused Attention, Capable of Sustained Attention Ability to Follow Commands Able to Follow Multi-Step Commands Cognitive Comments Cognitive Assessment Comments Pt intact. OT- Vision and Hearing OT- Hearing Assessment OT- Hearing Assessment WFL OT- Vision Assessment Visual Acuity Glasses All The Time Visual Attentiveness WFL Occular Pursuits WFL Visual Convergence WFL M7 OT- IP Mobility and Balance Start: 11/23/23 09:30 Freq: Status: Active Protocol: Document 11/23/23 09:30 [facility] (Rec: 11/23/23 09:48 [facility] [id number]) OT- Bed Mobility Assessment Supine to Sit Supine to Sit Assist Standby Assistance Scooting Scooting to Edge of Bed Contact Guard Assistance Scooting Up and Down in Bed Standby Assistance OT-Transfer Assessment Sit to and From Stand Sit to and from Stand Standby Assistance Transfers Transfer Ability Standby Assistance Technique Transfer Destination Bed,Chair,Toilet Transfer Technique Stand Step Pivot Devices Transfer Assistive Devices Gait Belt,Front Wheeled Walker ,4 Wheeled Walker Comments Mobility Comments Pt able to get out of bed on his own and able to raise his RLE. Pt vc to push up with at least one hand to come to stand for safety. CLose SBA with 4ww and a bit unsteady and much steadier with the FWW . Pt wanting a FWW as to have surgery on his left knee in a few months. OT- Balance Assessment Sitting Balance and Reactions Static Sitting Balance Ability Normal Dynamic Sitting Balance Ability Good Standing Balance and Reactions Static Standing Balance Ability Good Dynamic Standing Balance Ability Fair M8 OT- IP Objective Assessments Start: 11/23/23 09:30 Freq: Status: Active Protocol: Document 11/23/23 09:30 [facility] (Rec: 11/23/23 09:48 [facility] [id number]) OT Gross Range of Motion Upper Extremity Range of Motion Assessment Within Functional Limits OT Strength Upper Extremity Strength Assessment Within Functional Limits M9 OT- IP Assessment and Plan Start: 11/23/23 09:30 Freq: Status: Active Protocol: Document 11/23/23 09:30 [facility] (Rec: 11/23/23 09:48 [facility] [id number]) OT Summary Assessment and Plan Potential Rehabilitation Potential Excellent Analytic Complexity at Evaluation Low Summary OT Impairments Pain,Balance,Functional Mobility,Dressing,Bathing, Toilet Transfers,Shower Transfers Progress Towards Goals Progressing Toward Goals Assessment Summary Pt low complexity and main barriers are pain and now needing use of FWW for mobility needs. Able to issue pt the FWW. Pt has a supportive to assist with his needs at home. Pt having difficulty to urinate on his own at this time and has been having to be cathed. Pt to go home when medically stable and have outptPT. Goals Dressing Goal Independent Toileting Goal Independent Bathing Goal Independent Toilet Transfer Goal Independent Shower Transfer Goal Independent Days to Meet Goals 5 Frequency of Treatment Frequency Of Treatment Once a Day Treatment Plan OT Treatment Plan ADL Training,Functional Mobility,Patient/Family Education,Discharge Planning Discharge Recommendations OT Discharge Recommendations Home with Assistance, Outpatient PT Home Equipment Needs FWW- issued Transportation Needs at Discharge Private Vehicle
--- NOTE | 2023-11-23 09:56 | PC.NURSE ---
Day shift: Pt unable to void this AM. Bladder scanned and had approx 500mls. Straight cathed by Jyotsna DONNELLY at approx 0915 with 500mls clear yellow output. Pt w/ nausea at this time (1000). Did not want Zofran at this time.
[2023-11-23] MEDS: TAMSULOSIN 0.4 MG CAPSULE PO (11:28)
--- NOTE | 2023-11-23 13:35 | PC.NURSE ---
Day shift: Pt with nausea for the last 3 hours. At approx 1330 had approx 1200mls of emesis. Dark brown in color. Mostly liquid. Did not see any undigested food particles. Pt reports feeling better now. Nausea resolving at this time.
--- NOTE | 2023-11-23 15:09 | PT-IP ANOTE ---
Pt reports not having PT needs at this time, expecting d/c later today. PT will check back in with pt tomorrow if still in hospital.
[2023-11-23] MEDS: DEXAMETHASONE 10 MG/ML VIAL 8 MG IV (17:06)
--- NOTE | 2023-11-23 17:12 | PM.PN.1 ---
Subjective Subjective Interval history: Patient seen postoperatively this evening. Mobilized well. Having minimal pain. Rates his pain as a 5/10 at his surgical site and a 3/10 at the tourniquet. He has been able to urinate. He has been having nausea and vomiting issues however. I am giving him a dose of dexamethasone 8 mg and will continue him with the Zofran tablets. We will also send those to him at home. Plan for discharge in the morning Exam Vital Signs (past 8 hours): Oxygen Delivery Method Room Air Oxygen Flow Rate 0 Objective Labs 11/23/23 05:55 Labs: Laboratory Results - last 24 hr 11/23/23 05:55 Hgb 12.4 L Hct 35.9 L [facility] Medical History (Updated 11/14/23 @ 13:25 by Eliz Rivas RN) History of COVID-19 (2021) HLD (hyperlipidemia) HTN (hypertension) Syncope NSAID long-term use History of duodenal ulcer Rosacea Osteoarthritis of hand, left Disc degeneration, lumbar Other spondylosis with radiculopathy, lumbar region PUD (peptic ulcer disease) Osteoarthritis Foot pain (~2009) Carpal tunnel syndrome (~1993) Surgical History (Updated 11/14/23 @ 12:43 by Eliz Rivas RN) History of esophagogastroduodenoscopy (EGD) (01/24/22) History of colonoscopy Anesthesia S/P laparoscopic surgery (~08/2014) Family History Father Heart disease Sjogren's disease Grandfather No problems noted. Mother Alive and well Sister Sjogren's disease Brother Alive and well Other Congestive heart failure Social History household members: spouse Smoking Status: Former smoker alcohol intake: current Quality VTE Deep Vein Thrombosis/Pulmonary Embolism Present on Admission: No
[2023-11-23 19:50] VITALS: BP 136/88; PULSE 92; RESP 16; TEMP 35.8; O2SAT 98
[2023-11-23] MEDS: ATORVASTATIN 20 MG TABLET 40 MG PO (20:39)
[2023-11-23] MEDS: diphenhydrAMINE 25 MG TABLET PO (21:42)
[2023-11-23] MEDS: ZOLPIDEM 5 MG TABLET PO (21:42)
[2023-11-24] MEDS: OXYCODONE IR 5 MG TABLET PO ×2 (03:13→07:31)
[2023-11-24] MEDS: ACETAMINOPHEN 325 MG TABLET 650 MG PO ×2 (03:13→09:05)
[2023-11-24] MEDS: IBUPROFEN 600 MG TABLET PO ×2 (03:14→09:03)
[2023-11-24 07:00] VITALS: BP 171/94; PULSE 74; RESP 18; TEMP 35.4; O2SAT 93
[2023-11-24] MEDS: ONDANSETRON 4 MG ODT PO (07:50)
[2023-11-24 09:03] VITALS: BP 178/89; PULSE 76
[2023-11-24] MEDS: lisinopriL 10 MG TABLET 20 MG PO (09:03)
[2023-11-24] MEDS: ASPIRIN EC 81 MG TABLET PO (09:04)
[2023-11-24] MEDS: PANTOPRAZOLE DR 20 MG TABLET PO (09:04)
[2023-11-24] MEDS: DOCUSATE 100 MG CAPSULE PO (09:05)
[2023-11-24] MEDS: PREGABALIN 75 MG CAPSULE 225 MG PO (09:05)
--- NOTE | 2023-11-24 09:06 | PM.DS.1 ---
History of Present Illness History of Present Illness Date Patient Seen: 11/24/23 Time Patient Seen: 09:11 Chief complaint: Left Total Knee Arthroplasty Narrative: This patient was seen preoperatively and evaluated for knee pain which was refractory to numerous nonoperative treatment modalities. Their hip pain correlated with radiographic changes demonstrating significant degeneration in the knee joint. The risks and benefits of continued nonoperative management versus operative management were discussed at length and all of the patient?s questions were answered. Additional educational materials providing further details beyond our discussion in clinic were provided via a publicly available patient education video which included the incidence of medical complications associated with total knee arthroplasty, reasons for revision following total knee arthroplasty, and patient satisfaction rates following total knee arthroplasty. With this understanding of the risks inherent to the procedure, the patient elected to move forward with operative management. Following preoperative optimization, the patient was scheduled for surgery. Patient reports he is doing well overall, has been able to walk the hallways yesterday 3x already and ambulate around his room well with a walker. Pain is moderate but well controlled with oral pain medication. His vomiting was subsided last night with the zofran, however the medication irritated his mouth and throat. He was able to sleep from 10:00pm to 3:00 a.m. this morning and get naps from 3-6. He was able to void last night. He is ready to be discharged home with his . Discharge Providers Provider Discharge Date: 11/24/23 Primary care physician: Antonio Clark MD Consults: 11/21/23 06:00 Consult to Anesthesiology Routine Comment: Consulting Provider: Anesthesiologist Reason for consultation: Regional block for post operative pain control 11/22/23 15:34 Consult to Discharge Planning Routine Comment: Consult to Occupational Therapy Evaluate & Treat Comment: Physician Instructions: Evaluate and treat Consult to Physical Therapy Evaluate & Treat Comment: Physician Instructions: postop TKA protocol 11/23/23 09:07 Consult to Occupational Therapy Evaluate & Treat Comment: Home Mobility Physician Instructions: Front Wheeled Walker Discharge provider: Rick Walker PA-C Summary Hospital Course Discharge Diagnosis: Status post right knee arthroplasty Hospital Course: Multimodal pain relief. Physical therapy. Status at Discharge Cognitive/behavioral status at discharge: oriented Functional status at discharge: uses cane/walker Overall status at discharge: patient is back to baseline Time Spent with Patient Time spent: Less than 30 minutes Exam Vital Signs (past 8 hours): - 11/24/23 07:00 11/24/23 09:03 Temperature 95.7 F L Pulse Rate 74 76 Respiratory Rate 18 Blood Pressure 171/94 H 178/89 H Pulse Oximetry 93 Oxygen Delivery Method Room Air Oxygen Flow Rate 0 Narrative Exam Narrative: Dressing appears to be clean and dry. No tenderness to posterior palpation along the calf or thigh. Able to flex and hold it the right knee to 90? and extend. Dorsiflex and plantar flex against resistance. Neurovascularly grossly intact to lower extremities bilaterally. Resp Effort & Inspection: normal respiratory effort and able to speak in complete sentences Extrem Left lower extremity: ankle Objective Labs 11/23/23 05:55 [facility] Medical History (Updated 11/14/23 @ 13:25 by Eliz Rivas RN) History of COVID-19 (2021) HLD (hyperlipidemia) HTN (hypertension) Syncope NSAID long-term use History of duodenal ulcer Rosacea Osteoarthritis of hand, left Disc degeneration, lumbar Other spondylosis with radiculopathy, lumbar region PUD (peptic ulcer disease) Osteoarthritis Foot pain (~2009) Carpal tunnel syndrome (~1993) Surgical History (Updated 11/14/23 @ 12:43 by Eliz Rivas RN) History of esophagogastroduodenoscopy (EGD) (01/24/22) History of colonoscopy Anesthesia S/P laparoscopic surgery (~08/2014) Family History Father Heart disease Sjogren's disease Grandfather No problems noted. Mother Alive and well Sister Sjogren's disease Brother Alive and well Other Congestive heart failure Social History household members: spouse Smoking Status: Former smoker alcohol intake: current Discharge Assessment & Plan Assessment and Plan Assessment: Status post right knee arthroplasty Postoperative nausea and vomiting Plan of Treatment: -Can discharge to home today? -Weight bearing as tolerated, continue to work on mobilization with outpatient PT -Aspirin 81 twice per day for DVT prophylaxis -Follow up with [facility] in 2 weeks for post-op appt -Continue multimodal pain management, post-op prescriptions have been previously sent in by Dr. Little.? We will add Vistaril 25mg to take for postoperative nausea. Discharge Plan Discharge Plan Patient Disposition: Home Discharge orders & Medications Discharge Orders: Discharge (Order); Ordered 11/24/23 Ordered By: Rick Walker Prescriptions: New hydroxyzine pamoate 25 mg capsule 25 mg PO QID PRN (Reason: nausea and vomiting) Qty: 20 0RF Continued pantoprazole [Protonix] 20 mg tablet,delayed release (DR/EC) 20 mg PO BID Qty: 180 2RF lisinopril 10 mg tablet 20 mg PO DAILY Qty: 180 1RF pregabalin 225 mg capsule 225 mg PO TID Qty: 180 0RF zolpidem 12.5 mg tablet,ext release multiphase 12.5 mg PO BEDTIME PRN (Reason: insomnia) Qty: 90 2RF cyclobenzaprine 10 mg tablet See Rx Instructions PO TID PRN (Reason: muscle spasm) Qty: 60 3RF Rx Instructions: 1/2-1 tab PO three times a day PRN; atorvastatin [Lipitor] 40 mg tablet 40 mg PO BEDTIME Qty: 90 3RF acetaminophen [Arthritis Pain Relief (acetam)] 650 mg Tablet Extended Release 650 mg PO Q8H diphenhydramine-acetaminophen [Acetaminophen PM] 25-500 mg Tablet 4 tab PO BEDTIME triamcinolone acetonide 0.5 % ointment 1 applic topical TID PRN (Reason: Rash) Follow up/Referrals: Antonio Clark MD [Primary Care Provider] - Demond Little MD [Physician] - As previously scheduled (Follow up with Dr Little on 12/06/2023 @ 2:20 pm at [facility] in [place].) Diet/Activity/Treatments Diet: Diet as Tolerated Activity: Walk frequently! Cold/Heat Therapy: Ice to knee as needed for pain. Skin/Wound/Dressing Care Report to your healthcare provider any signs of infection, such as:: chills, fever, night sweats, unusual drainage and unusual redness Dressing: May remove NONA wrap and shower on 11/25/2022. Leave dressing in place until follow up in office. No bathing or otherwise soaking incision. Call the office if the dressing becomes saturated inside. Visit Report/Discharge Packet Instructions: DI for Knee Replacement Stand Alone Forms: Patient Portal/API Discharge Data Primary Care Provider: Antonio Clark Attending Provider: Demond Little Quality VTE Deep Vein Thrombosis/Pulmonary Embolism Present on Admission: No
--- NOTE | 2023-11-24 09:35 | CM.DPC ---
DCP Discharge Home Per Ortho PA, pt's n/v subsided with Zofran and pt has been able to ambulate, tolerate diet, void independently and pain seems controlled and medically stable to d/c home today with no identified barriers to discharge. Per PT, recommending home with outpt PT. Plan: Patient to d/c home today via spouse POV and already has outpt PT set up and f/u appointment with Ortho. No further SW needs at this time. ROWDY Wiggins
[2023-11-24] MEDS: hydrOXYzine pamoate 25 MG CAPSULE PO (10:00)
== END 2023-11-24 10:45 | disposition home or self-care (01) ==
LOC: OR 08:38 → AC 08:41
PROVIDERS: Family Provider Family Medicine; PCP Family Medicine; Referring Provider Orthopaedic Surgery Adult Reconstructive Orthopaedic Surgery; Visit Provider Orthopaedic Surgery Adult Reconstructive Orthopaedic Surgery
PROC: 0SRC0JZ Replacement of Right Knee Joint with Synthetic Substitute, Open Approach (ICD-10-PCS; CPT 27447; principal; 2023-11-22 10:45)
DX: M17.11 Unilateral primary osteoarthritis, right knee (principal); M25.761 Osteophyte, right knee
CPT/HCPCS: 27447; 36415; 73560; 85014; 85018; 97116; 97161; 97165; 97530; 97535; C1776; J0690; J1100; J2250; J2274; J2704; J3010

== ENCOUNTER → 2023-12-11 15:36 | Outpatient (CLI) | payer MEDICARE, OTHER, SELFPAY ==
[2023-11-22 15:47] VITALS: BMI 29.0
[2023-12-11 17:31] LABS: Influenza A - CEPHEID Flu A POSITIVE (NEGATIVE); Influenza B - CEPHEID Flu B NEGATIVE (NEGATIVE); Respiratory Syncytial Virus Negative (Negative)
[2023-12-11 17:43] LABS: COVID-19 CEPHEID 4-PLEX PCR Negative (Negative)
== END ==
PROVIDERS: Family Provider Family Medicine; PCP Family Medicine; Visit Provider Physician Assistant
DX: R05.1 Acute cough (principal)
CPT/HCPCS: 0241U

== ENCOUNTER → 2023-12-11 15:54 | Outpatient (CLI) | payer MEDICARE, OTHER, SELFPAY ==
[2023-11-22 15:47] VITALS: BMI 29.0
--- NOTE | 2023-12-11 15:56 | DI.RAD.S_ITS ---
PROCEDURE: XR CHEST 2V INDICATIONS: f/u recent pneumonia L lobe, continued wheezing b/l TECHNIQUE: 2 views of the chest were acquired. COMPARISON: None. FINDINGS: Surgical changes and devices: None. Lungs and pleura: Lungs are clear. No pleural effusions or pneumothorax. Mediastinum: Mediastinal contours are normal. Heart size is normal. Bones and chest wall: No suspicious bony abnormalities. Soft tissues appear unremarkable. IMPRESSION: No acute cardiopulmonary abnormality is seen. Dictated by: Michael Uriarte M.D. on 12/11/2023 at 17:49 Approved by: Michael Uriarte M.D. on 12/11/2023 at 17:49
[2023-12-11 16:13] LABS: Add Manual Diff / Slide Review NO; Basophils Absolute Auto 0 /uL (0-100); Basophils Percent Auto 0.6 % (0-2); Eosinophils Absolute Auto 0 /uL (0-450); Eosinophils Percent Auto 1.1 % (2-4); Hematocrit 26.8 % (41-53); Lymphocytes Absolute Auto 700 /uL (1100-4500); Lymphocytes Percent Auto 26.1 % (25-40); Mean Corpuscular HGB Conc 33.4 % (30-36); Mean Corpuscular Hemoglobin 30.6 PG (26-34); Mean Corpuscular Volume 91.5 fL (80-100); Monocytes Absolute Auto 300 /uL (0-900); Monocytes Percent Auto 12.5 % (3-14); Neutrophils Absolute Auto 1600 /uL (1500-7000); Neutrophils Percent Auto 59.7 % (50-75); Platelet Count 239 X10^3/uL (150-400); Red Blood Cell Count 2.93 X10^6/uL (4.5-5.9); Red Cell Distribution Width 16.9 % (11.6-14.8); White Blood Cell Count 2.7 X10^3/uL (4.5-11.0)
== END ==
PROVIDERS: Family Provider Family Medicine; PCP Family Medicine; Referring Provider Physician Assistant; Visit Provider Physician Assistant
DX: J18.9 Pneumonia, unspecified organism (principal); K92.2 Gastrointestinal hemorrhage, unspecified; K27.9 Peptic ulcer, site unspecified, unspecified as acute or chronic, without hemorrhage or perforation; R05.1 Acute cough
CPT/HCPCS: 0241U; 36415; 71046; 85025

== ENCOUNTER → 2023-12-17 09:29 | Outpatient (CLI) | payer MEDICARE, OTHER, SELFPAY ==
[2023-11-22 15:47] VITALS: BMI 29.0
[2023-12-17 10:20] LABS: Add Manual Diff / Slide Review NO; Basophils Absolute Auto 0 /uL (0-100); Basophils Percent Auto 0.3 % (0-2); Eosinophils Absolute Auto 100 /uL (0-450); Hematocrit 29.8 % (41-53); Hemoglobin 9.7 g/dL (13.5-17.5); Lymphocytes Absolute Auto 900 /uL (1100-4500); Lymphocytes Percent Auto 23.3 % (25-40); Mean Corpuscular HGB Conc 32.6 % (30-36); Mean Corpuscular Hemoglobin 30.2 PG (26-34); Mean Corpuscular Volume 92.5 fL (80-100); Monocytes Absolute Auto 500 /uL (0-900); Monocytes Percent Auto 11.9 % (3-14); Neutrophils Absolute Auto 2500 /uL (1500-7000); Neutrophils Percent Auto 61.5 % (50-75); Platelet Count 250 X10^3/uL (150-400); Red Blood Cell Count 3.22 X10^6/uL (4.5-5.9); Red Cell Distribution Width 18.1 % (11.6-14.8); White Blood Cell Count 4.1 X10^3/uL (4.5-11.0)
== END ==
PROVIDERS: Family Provider Family Medicine; PCP Family Medicine; Referring Provider Physician Assistant; Visit Provider Physician Assistant
DX: D64.9 Anemia, unspecified (principal)
CPT/HCPCS: 36415; 85025

== ENCOUNTER → 2024-02-07 15:31 | Outpatient (CLI) | payer MEDICARE, OTHER, SELFPAY ==
[2023-11-22 15:47] VITALS: BMI 29.0
--- NOTE | 2024-02-07 15:35 | DI.RAD.S_ITS ---
PROCEDURE: XR SHOULDER LT MIN 2V INDICATIONS: bilateral shoulder pain TECHNIQUE: 3 views of the shoulder were acquired. COMPARISON: None. FINDINGS: Bones: No fractures or dislocations. Moderate degenerative changes of the acromioclavicular joint No suspicious bony lesions. Visualized ribs appear intact. Soft tissues: No suspicious soft tissue calcifications. IMPRESSION: No acute bony abnormality. Moderate degenerative changes of the acromioclavicular joint. Dictated by: Grzegorz Emmanuel M.D. on 02/07/2024 at 16:16 Approved by: Grzegorz Emmanuel M.D. on 02/07/2024 at 16:16
--- NOTE | 2024-02-07 15:35 | DI.RAD.S_ITS ---
PROCEDURE: XR SHOULDER RT MIN 2V INDICATIONS: bilateral shoulder pain TECHNIQUE: 3 views of the shoulder were acquired. COMPARISON: None. FINDINGS: Bones: No fractures or dislocations. Moderate acromioclavicular joint degeneration. No suspicious bony lesions. Visualized ribs appear intact. Soft tissues: No suspicious soft tissue calcifications. IMPRESSION: No acute bony abnormality. Moderate acromioclavicular joint degeneration. Dictated by: Grzegorz Emmanuel M.D. on 02/07/2024 at 16:17 Approved by: Grzegorz Emmanuel M.D. on 02/07/2024 at 16:17
== END ==
LOC: RAD 15:34
PROVIDERS: Family Provider Family Medicine; PCP Family Medicine; Referring Provider Family Medicine; Visit Provider Family Medicine
DX: M19.011 Primary osteoarthritis, right shoulder (principal); M25.511 Pain in right shoulder; M25.512 Pain in left shoulder
CPT/HCPCS: 73030

== ENCOUNTER → 2024-03-31 15:34 | Outpatient (CLI) | payer MEDICARE, OTHER, SELFPAY ==
[2023-11-22 15:47] VITALS: BMI 29.0
[2024-03-31 16:49] LABS: Add Manual Diff / Slide Review NO; Basophils Absolute Auto 0 /uL (0-100); Basophils Percent Auto 0.5 % (0-2); Eosinophils Absolute Auto 300 /uL (0-450); Eosinophils Percent Auto 3.6 % (2-4); Hematocrit 38.3 % (41-53); Hemoglobin 12.9 g/dL (13.5-17.5); Lymphocytes Absolute Auto 1000 /uL (1100-4500); Lymphocytes Percent Auto 14.2 % (25-40); Mean Corpuscular HGB Conc 33.8 % (30-36); Mean Corpuscular Hemoglobin 29.5 PG (26-34); Mean Corpuscular Volume 87.1 fL (80-100); Monocytes Absolute Auto 500 /uL (0-900); Monocytes Percent Auto 7.8 % (3-14); Neutrophils Absolute Auto 5200 /uL (1500-7000); Neutrophils Percent Auto 73.9 % (50-75); Platelet Count 161 X10^3/uL (150-400); Red Blood Cell Count 4.39 X10^6/uL (4.5-5.9); Red Cell Distribution Width 18.6 % (11.6-14.8)
[2024-03-31 17:15] LABS: Alanine Aminotransferase 13 IU/L (<50); Albumin 4.8 g/dL (3.5-5.0); Albumin Globulin Ratio 1.5 (1.0-2.8); Alkaline Phosphatase 57 U/L (38-126); Aspartate Aminotransferase 19 IU/L (17-59); BUN Creatinine Ratio 12.2 (6-22); Blood Urea Nitrogen 11 mg/dL (9-20); Calcium 9.5 mg/dL (8.4-10.2); Carbon Dioxide 28 mmol/L (22-32); Chloride 103 mmol/L (98-107); Cholesterol 117 mg/dL (140-199); Estimated Glomerular Filt Rate > 60 mL/min (>60); Globulin 3.1 g/dL (1.7-4.1); Glucose 105 mg/dL (80-110); HDL Cholesterol 41 mg/dL (40-60); HEMOLYSIS < 15 (0-50); LDL Cholesterol Calculated 54 mg/dL (<100); Potassium 3.9 mmol/L (3.4-5.1); Sodium 140 mmol/L (137-145); Total Protein 7.9 g/dL (6.3-8.2); Triglycerides 108 mg/dL (35-150)
[2024-03-31 17:45] LABS: Prostate Specific Antigen Scrn 0.525 ng/mL (0.1-4.0)
[2024-03-31 17:46] LABS: TSH w/ Reflex to FT4 0.72 uIU/mL (0.47-4.68)
[2024-03-31 17:56] LABS: Creatinine Urine Random 121.9 mg/dL
[2024-03-31 18:02] LABS: Microalbumin Urine Random < 0.6 mg/dL (0-1.6)
[2024-04-02 11:41] LABS: Apolipoprotein B 60 mg/dL (<90)
== END ==
PROVIDERS: Family Provider Family Medicine; PCP Family Medicine; Referring Provider Family Medicine; Visit Provider Family Medicine
DX: Z12.5 Encounter for screening for malignant neoplasm of prostate (principal); Z12.11 Encounter for screening for malignant neoplasm of colon; D64.9 Anemia, unspecified; I10 Essential (primary) hypertension; K22.70 Barrett's esophagus without dysplasia; K27.9 Peptic ulcer, site unspecified, unspecified as acute or chronic, without hemorrhage or perforation; M47.26 Other spondylosis with radiculopathy, lumbar region; Z96.651 Presence of right artificial knee joint
CPT/HCPCS: 36415; 80053; 80061; 82043; 82172; 82570; 84443; 85025; G0103

== ENCOUNTER → 2024-04-09 13:40 | Outpatient (CLI) | payer MEDICARE, OTHER, SELFPAY ==
[2023-11-22 15:47] VITALS: BMI 29.0
--- NOTE | 2024-04-09 13:41 | DI.CT.S_ITS ---
PROCEDURE: CT LUNG LOW DOSE SCREENING INDICATIONS: smoking hx TECHNIQUE: Noncontrast 2.0-2.5 mm thick sections acquired from the pulmonary apices to the posterior costophrenic angles. 7 mm thick axial MIP, and 5 mm coronal and sagittal reformats were then acquired. For radiation dose reduction, the following was used: automated exposure control, adjustment of mA and/or kV according to patient size. COMPARISON: None. FINDINGS: Image quality: Diagnostic. Lower Neck: No enlarged lymph nodes. Thyroid: No thyroid nodules which require sonographic follow up, per consensus guidelines. Axillae: No enlarged lymph nodes. Chest Wall: Unremarkable. Bones: Unremarkable. Lungs and Pleura: No pneumothorax or pleural effusions. No consolidation or suspicious nodules. There is mild pleural calcification at the right mid lung. Heart: Heart size is normal. No pericardial effusion. Thoracic Vessels: The aorta and pulmonary arteries demonstrate normal size. Mediastinum and Lucy: No enlarged lymph nodes. Esophagus: No wall thickening. There is a small hiatal hernia. Upper Abdomen: Visualized upper abdomen solid organs and bowel loops appear normal. IMPRESSION: No suspicious pulmonary nodules. LUNG-RADS 1; continued annual screening, if eligible. Clinically Significant Non-pulmonary Findings: None. Dictated by: Ana Perales M.D. on 04/09/2024 at 15:20 Approved by: Ana Perales M.D. on 04/09/2024 at 15:23
== END ==
LOC: CT 13:41
PROVIDERS: PCP Family Medicine; Referring Provider Family Medicine; Visit Provider Family Medicine
DX: Z87.891 Personal history of nicotine dependence (principal); Z12.2 Encounter for screening for malignant neoplasm of respiratory organs
CPT/HCPCS: 71271

== ENCOUNTER → 2024-04-10 13:41 | Outpatient (CLI) | payer MEDICARE, OTHER, SELFPAY ==
[2023-11-22 15:47] VITALS: BMI 29.0
--- NOTE | 2024-04-10 13:42 | DI.US.S_ITS ---
PROCEDURE: US ABD AORTA ANEURYSM SCREEN INDICATIONS: smoking hx TECHNIQUE: Real time scanning was performed of the aorta and iliac arteries, with image documentation. COMPARISON: None. FINDINGS: Aorta: Proximal aortic diameter measures 2.9 x 2.1 cm. Mid-aorta measures 2.1 x 2.1 cm. Distal aortic diameter is 1.8 x 1.7 cm. Iliac arteries: Right common iliac artery measures 1.1 cm. Left common iliac artery measures 1.1 cm. IMPRESSION: No evidence of abdominal aortic aneurysm. Dictated by: Srinivas Stanford M.D. on 04/10/2024 at 15:42 Approved by: Srinivas Stanford M.D. on 04/10/2024 at 15:42
== END ==
PROVIDERS: PCP Family Medicine; Referring Provider Family Medicine; Visit Provider Family Medicine
DX: I10 Essential (primary) hypertension (principal); Z87.891 Personal history of nicotine dependence; Z13.6 Encounter for screening for cardiovascular disorders
CPT/HCPCS: 76706

== ENCOUNTER → 2025-05-07 09:31 | Outpatient (CLI) | payer MEDICARE, OTHER, SELFPAY ==
[2023-11-22 15:47] VITALS: BMI 29.0
[2025-05-07 10:15] LABS: Add Manual Diff / Slide Review NO; Basophils Absolute Auto 0 /uL (0-100); Basophils Percent Auto 0.6 % (0-2); Eosinophils Absolute Auto 200 /uL (0-450); Eosinophils Percent Auto 4.5 % (2-4); Hematocrit 46.2 % (41-53); Hemoglobin 15.4 g/dL (13.5-17.5); Lymphocytes Absolute Auto 1100 /uL (1100-4500); Lymphocytes Percent Auto 21.4 % (25-40); Mean Corpuscular HGB Conc 33.4 % (30-36); Mean Corpuscular Hemoglobin 31.4 PG (26-34); Mean Corpuscular Volume 94.1 fL (80-100); Monocytes Absolute Auto 500 /uL (0-900); Monocytes Percent Auto 8.5 % (3-14); Neutrophils Absolute Auto 3500 /uL (1500-7000); Platelet Count 144 X10^3/uL (150-400); Red Blood Cell Count 4.92 X10^6/uL (4.5-5.9); Red Cell Distribution Width 13.9 % (11.6-14.8); White Blood Cell Count 5.3 X10^3/uL (4.5-11.0)
[2025-05-07 10:26] LABS: Hemoglobin A1C% w Est Avg Glu 5.4 % (4.0-6.0)
[2025-05-07 10:50] LABS: Alanine Aminotransferase 24 IU/L (<50); Albumin Globulin Ratio 1.9 (1.0-2.8); Alkaline Phosphatase 71 U/L (38-126); Aspartate Aminotransferase 27 IU/L (17-59); BUN Creatinine Ratio 16.1 (6-22); Bilirubin Total 0.7 mg/dL (0.2-1.3); Blood Urea Nitrogen 18 mg/dL (9-20); Carbon Dioxide 29 mmol/L (22-32); Chloride 103 mmol/L (98-107); Cholesterol 122 mg/dL (140-199); Estimated Glomerular Filt Rate > 60 mL/min (>60); Globulin 2.6 g/dL (1.7-4.1); HEMOLYSIS < 15 (0-50); Total Protein 7.6 g/dL (6.3-8.2); Triglycerides 198 mg/dL (35-150)
[2025-05-07 10:52] LABS: Glucose 103 mg/dL (70-99); HDL Cholesterol 41 mg/dL (40-60); LDL Cholesterol Calculated 41 mg/dL (<100); Potassium 5.2 mmol/L (3.4-5.1); Sodium 140 mmol/L (137-145)
[2025-05-07 11:15] LABS: TSH w/ Reflex to FT4 0.65 uIU/mL (0.47-4.68)
[2025-05-07 15:36] LABS: Creatinine Urine Random 129.74 mg/dL
[2025-05-07 15:42] LABS: Microalbumin Urine Random 0.8 mg/dL (0-1.6)
[2025-05-08 04:36] LABS: Apolipoprotein B 63 mg/dL (<90)
== END ==
PROVIDERS: PCP Family Medicine; Referring Provider Family Medicine; Visit Provider Family Medicine
DX: Z00.00 Encounter for general adult medical examination without abnormal findings (principal); I10 Essential (primary) hypertension; Z12.5 Encounter for screening for malignant neoplasm of prostate; Z96.651 Presence of right artificial knee joint; M47.26 Other spondylosis with radiculopathy, lumbar region; D64.89 Other specified anemias; M17.0 Bilateral primary osteoarthritis of knee; M51.369 Other intervertebral disc degeneration, lumbar region without mention of lumbar back pain or lower extremity pain
CPT/HCPCS: 36415; 80053; 80061; 82043; 82172; 82570; 83036; 84443; 85025; G0103

== ENCOUNTER → 2025-07-24 15:06 | Outpatient (CLI) | payer MEDICARE, OTHER, SELFPAY ==
[2023-11-22 15:47] VITALS: BMI 29.0
--- NOTE | 2025-07-24 15:41 | EKG_ITS ---
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
== END ==
PROVIDERS: PCP Family Medicine; Referring Provider Orthopaedic Surgery Adult Reconstructive Orthopaedic Surgery; Visit Provider Orthopaedic Surgery Adult Reconstructive Orthopaedic Surgery
DX: Z01.818 Encounter for other preprocedural examination (principal)
CPT/HCPCS: 93005

== ENCOUNTER → 2025-07-30 07:36 | Outpatient (CLI) | payer MEDICARE, OTHER, SELFPAY ==
[2023-11-22 15:47] VITALS: BMI 29.0
--- NOTE | 2025-07-30 07:40 | DI.RAD.S_ITS ---
PROCEDURE: XR LUMBAR SPINE MIN 4V INDICATIONS: BACK PAIN TECHNIQUE: 5 views of the lumbar spine were acquired, including bilateral oblique views. COMPARISON: [facility], CR, XR LUMBAR SPINE 2-3V, 06/10/2019, 9:57. FINDINGS: Multilevel degenerative disc disease and facet arthropathy, most pronounced at L4-L5, similar to prior examination. No acute fracture. Vertebral body height is maintained. Sacroiliac joints are patent. Aortic atherosclerosis IMPRESSION: Degenerative changes. Dictated by: Deep Adrian M.D. on 07/30/2025 at 9:26 Approved by: Deep Adrian M.D. on 07/30/2025 at 9:31
--- NOTE | 2025-07-30 07:40 | DI.RAD.S_ITS ---
PROCEDURE: XR THORACIC SPINE 3V INDICATIONS: RIB PAIN TECHNIQUE: 3 views of the thoracic spine were acquired. COMPARISON: None. FINDINGS: Bones: No fractures or dislocations. No suspicious bony lesions. Multilevel thoracic degenerative disc disease with endplate osteophytes. Soft tissues: No paravertebral stripe thickening. IMPRESSION: Degenerative change with no acute abnormality. Dictated by: Deep Adrian M.D. on 07/30/2025 at 9:31 Approved by: Deep Adrian M.D. on 07/30/2025 at 9:32
== END ==
PROVIDERS: PCP Family Medicine; Referring Provider Family Medicine; Visit Provider Physical Medicine & Rehabilitation
DX: R07.81 Pleurodynia (principal); M51.34 Other intervertebral disc degeneration, thoracic region; M47.26 Other spondylosis with radiculopathy, lumbar region; M51.16 Intervertebral disc disorders with radiculopathy, lumbar region; I70.0 Atherosclerosis of aorta; M54.9 Dorsalgia, unspecified
CPT/HCPCS: 72072; 72110

== ENCOUNTER 2025-08-05 09:15 | Outpatient (CLI) | payer MEDICARE, OTHER, SELFPAY ==
[2023-11-22 15:47] VITALS: BMI 29.0
[2025-08-05 09:20] VITALS: BP 141/85; PULSE 71; RESP 16; TEMP 36.7; O2SAT 97
[2025-08-05 09:35] VITALS: BP 140/81; PULSE 69; RESP 16; O2SAT 97
[2025-08-05 09:38] VITALS: BP 140/81; PULSE 72; RESP 16; O2SAT 97
[2025-08-05 09:42] VITALS: BP 139/75; PULSE 69; RESP 15; O2SAT 96
[2025-08-05] MEDS: LIDOCAINE 1% (PF) 5 ML INJ (09:44)
[2025-08-05 09:46] VITALS: BP 129/77; PULSE 71; RESP 16
[2025-08-05 09:50] VITALS: BP 141/75; PULSE 70; RESP 16; O2SAT 97
--- NOTE | 2025-08-05 12:10 | P.PCN_ITS ---
Date/Time/Diagnoses Date of procedure: 06/24/25 Pre-procedure diagnosis: Cervicothoracic radiculopathy Post-procedure diagnosis: same Procedure Notes Procedure: Interlaminar epidural steroid injection C7-T1 Indications: Cervicothoracic radiculopathy Physician: Ricki Garcia Total sedation minutes: 0 Complications: none Procedure in detail & Post-procedure care: Patient is here for the planned procedure today as noted. No significant change since the last office visit. For additional clinical scenario please see those office notes. Focused exam: Vital signs reviewed as charted on intake. Gen: Well developed. No acute distress. CV: RRR, no M/R/G Chest: Non-labored breathing, CTAB. Psych: Alert and well-oriented. Mood/Affect: normal. Patient suitable for the planned procedure today: Yes === The following procedure was performed in the office today: Cervical Epidural Steroid Injection with fluoroscopic guidance - Interlaminar approach (52600) Levels Treated: C7-T1 Approach: interlaminar Soft tissue: [1% lidocaine 2 mL] Test dose: 1% lidocaine 1 mL Injectate: [1.5 mL dexamethasone (10mg/mL), 1 mL lidocaine 1%, 1.5 mL normal saline] Fluoroscopy Agent: Isovue 300-M 1.5 mL Notes: Right paramedian approach towards midline. 3.5 in 20 gauge Touhy needle utilized and adequate. Preprocedure pain 3/10, postprocedure pain 1/10. Procedure: After discussing the risks, benefits, and alternatives to the procedure, the patient expressed understanding and wished to proceed. The risks include but are not limited to infection, allergic reaction, nerve damage, stroke, paralysis, epidural hematoma, syncope, headache, respiratory or cardiac arrest, spinal cord injury, and scar formation. Informed consent was obtained and all patient questions were answered. The patient was brought to the procedure suite and placed in the prone position. A pre-procedural pause was conducted to verify: correct patient identity, procedure to be performed and as applicable, correct side and site, correct patient position, and any special requirements. Using a paramedian approach from the side noted above, the region overlying the target was localized under fluoroscopic visualization and the soft tissues overlying this structure were infiltrated with the anesthetic listed above. With fluoroscopic guidance, a #20 gauge Tuohy needle (unless otherwise noted) was inserted into the epidural space using a paramedian approach. The epidural s pace was localized utilizing intermittent multiplanar fluoroscopic guidance and loss of resistance technique. After negative aspiration, the contrast noted above was injected into the epidural space and the flow of contrast was observed, confirming epidural spread without evidence of intravascular or intrathecal spread. Multi-planar radiographs were obtained for documentation purposes. A test dose of lidocaine was given and the patient was observed for 30-60 seconds. There were no adverse reactions noted. Subsequently, the injectate as noted above was administered into the level noted above. The patient tolerated the procedure well and was discharged after an appropriate period of observation. If there are any complications, the patient was instructed to call us. The patient is to follow-up with the requesting provider in 2-3 weeks/as planned. This note was compiled using voice recognition software and therefore may contain typos. Please contact the author with any questions or concerns.
== END 2025-08-05 09:57 | disposition home or self-care (01) ==
PROVIDERS: PCP Family Medicine; Referring Provider Physical Medicine & Rehabilitation; Visit Provider Physical Medicine & Rehabilitation
DX: M54.13 Radiculopathy, cervicothoracic region (principal)
CPT/HCPCS: 62321; J1100

== ENCOUNTER → 2025-09-18 19:34 | Outpatient (CLI) | payer MEDICARE, OTHER, SELFPAY ==
[2025-09-03 15:57] VITALS: BMI 29.0
--- NOTE | 2025-09-18 19:36 | DI.MRI.S_ITS ---
PROCEDURE: MR FEMUR LT WO/W CON INDICATIONS: to evaluate a left distal femur lesion TECHNIQUE: Sequences of the left upper leg before and after administration of IV contrast. COMPARISON: [facility] [place] [facility], CR, XR KNEE 4+ VIEWS RIGHT, 03/13/2025, 9:26. [facility], CR, ORTHO-XR BONE LENGTH HIP-ANK, 09/10/2025, 15:05. FINDINGS: Focal fatty degeneration of the vastus medialis adjacent to a region of cortical thickening and deformity of the medial aspect of the distal femoral diaphysis and metaphysis. No discrete marrow replacing lesion. No soft tissue mass. No abnormal enhancement. No muscle edema. Tendons are unremarkable. Vasculature and sciatic nerve are unremarkable. No fracture. No osteonecrosis. No marrow edema. IMPRESSION: Mild cortical thickening and deformity of the distal femur with adjacent focal fatty degeneration of vastus medialis. This is a non malignant lesion, possibly sequelae of prior trauma or neuropathy. No soft tissue or osseous mass. Dictated by: Deep Adrian M.D. on 09/18/2025 at 20:59 Approved by: Deep Adrian M.D. on 09/18/2025 at 21:09
== END ==
LOC: MRI 19:35
PROVIDERS: PCP Family Medicine; Referring Provider Family Medicine; Visit Provider Orthopaedic Surgery Adult Reconstructive Orthopaedic Surgery
DX: M89.9 Disorder of bone, unspecified (principal)
CPT/HCPCS: 73720; A9579

== ENCOUNTER 2025-09-21 12:03 | Day surgery (SDC) | payer MEDICARE, OTHER, SELFPAY ==
[2025-09-03 15:57] VITALS: BMI 29.0
[2025-09-14 08:56] VITALS: BMI 29.0
[2025-09-21] VITALS (10 sets, daily range): BP systolic 103–140; BP diastolic 53–87; PULSE 57–70; RESP 11–19; TEMP 35.5–36.4; O2SAT 95–100; BMI 29.0
--- NOTE | 2025-09-21 07:49 | DI.RAD.S_ITS ---
PROCEDURE: XR KNEE LT 1TO2V
--- NOTE | 2025-09-21 13:14 | P.OP.PRE_ITS ---
Pre-operative Note
--- NOTE | 2025-09-21 13:14 | PM.PREOP ---
Pre-operative Note Interval Note History & Physical reviewed/Exam performed by Physician: Yes Changes to H&P: No
[2025-09-21] MEDS: LACTATED RINGERS 1,000 ML 42 ML IV ×2 (13:15→15:38)
[2025-09-21] MEDS: ACETAMINOPHEN 325 MG TABLET 975 MG PO (13:57)
[2025-09-21] MEDS: TRANEXAMIC ACID 1,000 MG VIAL 1000 MG INJ ×2 (14:45→16:27)
--- NOTE | 2025-09-21 15:03 | SUR.OPER ---
Supine on padded OR bed. Pillow under head, arms secured on padded armboards <90 degree abduction. Safety belt across torso. Non-operative right leg secured with tape over blanket over lower leg. Operative left leg secured in [employer]/Jayant/Nathe positioner. Foam padded brace at thigh of operative leg.
[2025-09-21] MEDS: KETOROLAC 30 MG/ML VIAL 15 MG IV (15:12)
--- NOTE | 2025-09-21 17:04 | P.OP_ITS ---
Operative Date/Time/Diagnoses
--- NOTE | 2025-09-21 17:04 | PM.OP.1 ---
Operative Date/Time/Diagnoses Date of procedure: 09/21/25 Time of procedure: 15:30 Pre-op diagnosis: Left knee osteoarthritis Post-op diagnosis: same Procedure & Clinicians Procedure: Left total knee arthroplasty (47257) Computer-assisted musculoskeletal navigation (0054T) Same procedure(s) as scheduled: Yes Surgeon: Demond Little Assisted?: Yes Ingot Buggy Operator: Lilly Trujillo Anesthesia Type: Spinal, Sedation, Peripheral nerve block and Local Operative Notes Findings: Left knee arthritis Closure Type: primary Applied: implant(s) Estimated Blood Loss (mL): 100 Tourniquet time (min): 85 Procedure in detail: Left Gap-Balanced Tere Persona Medial-Congruent Primary Total Knee Arthroplasty with computer-assisted musculoskeletal navigation (OrthAlign) Implants: Size 11 Cruciate Retaining Femoral Component Size F Tibial Component Size 11 Medial Congruent Polyethylene Insert 38 mm Patella Procedure Summary: This 65-year-old male patient had previously undergone a right total knee arthroplasty performed by myself. On his long-leg scanogram preoperatively I noted that there was cortical thickening in the femur as well as some intramedullary changes so I got a MRI with contrast to evaluate it. The radiology read was ?Mild cortical thickening and deformity of the distal femur with adjacent focal fatty degeneration of vastus medialis. This is a non malignant lesion, possibly sequelae of prior trauma or neuropathy.In discussions with the patient he had had a history of trauma to this area in his adolescent years. He dropped a large load of lumber directly onto that location and had severe thigh swelling and had use crutches afterwards. He had never gotten any x-rays to evaluate for potential fracture. We discussed that it was possible that he had had a nondisplaced femoral fracture but irrespective of the etiology of the cortical thickening it was deemed benign based on the MRI. We therefore moved forward with surgery today. OrthAlign was utilized for the distal femoral cut. Cemented fixation was utilized due to fairly low bone quality in the tibia and the patella was resurfaced. At the conclusion of the procedure he could not fully extend his knee with a 12 mm insert so an 11 mm insert was utilized. Procedure in Detail: This patient was seen preoperatively and evaluated for knee pain which was refractory to numerous nonoperative treatment modalities. Their pain correlated with radiographic changes demonstrating significant degeneration in the knee joint. The risks and benefits of continued nonoperative management versus operative management were discussed at length and all of the patient?s questions were answered. Additional educational materials providing further details beyond our discussion in clinic were provided via a publicly available patient education video which included the incidence of medical complications associated with total knee arthroplasty, reasons for revision following total knee arthroplasty, and patient satisfaction rates following total knee arthroplasty. With this understanding of the risks inherent to the procedure, the patient elected to move forward with operative management. Following preoperative optimization, the patient was scheduled for surgery. The patient was met in the preoperative holding area the day of the procedure and all questions were answered. The patient?s nares were swabbed in order to decolonize them from MRSA. Informed consent was signed and the left limb was marked with indelible ink.? The patient was brought back to the operating room where anesthesia was induced. The patient was transferred to the operating table and all bony prominences were padded. The operative site was prepped and draped in the usual sterile fashion. A second prep stick was utilized following drape placement. The incision was marked corresponding to the medial aspect of the tibial tubercle and the patella. Ioban was wrapped circumferentially around the knee. Prior to incision, tranexamic acid and cefazolin were administered. Templating images were displayed. A timeout procedure was performed verifying the patient?s identity, medical comorbidities, allergies, relevant medications, anesthesia type and the surgical plan. All present were in agreement. The assistance of a physician bioinformatics assistant was required for positioning, room setup, soft tissue retraction and wound closure. Without this assistance, the procedure would have been significantly more challenging and time consuming.?? The tourniquet was inflated prior to incision. I made an anterior incision over the knee, dissected through the subcutaneous tissues and identified the lateral border of the VMO. Medial and lateral soft tissue flaps were developed. A mid-vastus arthrotomy was performed ensuring that adequate capsular tissue would remain for closure at the conclusion of the procedure. The knee was brought into extension and the medial soft tissues were released off the joint line of the tibia. Tissue overlying the distal anterior femur was released to allow for later assessment for anterior notching but left in place. A portion of the retropatellar fat pad was excised while protecting the patellar tendon. The patella was everted. The patella was resurfaced. Final thickness after resurfacing was 15 mm. A 38 mm button was measured in was utilized. Osteophytes were excised and a lateral facetectomy was performed. The patella was released from its everted position.?? I flexed the knee to 90 degrees and placed retractors to allow access to the notch. I utilized OrthAlign to plan out a distal femoral cut which would be perpendicular to the mechanical axis of the femur. This involved flexion extension and external rotation of the knee in order to map the hip center. I then made the cut using a sagittal saw. This provided additional access to the femoral notch. The ACL and PCL were excised. Retractors were placed on the lateral and medial tibia. I hyperflexed the knee while externally rotating it to sublux the tibia anteriorly. I placed a Toni retractor posteriorly and used this to provide additional anterior subluxation. The remainder of the PCL root was released. An extramedullary guide was positioned for a resection perpendicular to the anatomic and mechanical axes of the tibia, thereby aiming to achieve mechanical alignment of the eventual implant. A +4 resection off the medial tibia was planned and the tibial cutting jig was pinned in place. I evaluated the depth, varus-valgus alignment and slope of the planned tibial resection prior to making the cut. I cut the tibia with a sagittal saw while using retractors to protect the MCL, patellar tendon, and posterolateral structures.? The knee was repositioned in extension and the Fuzion soft tissue balancing gauge was introduced. This demonstrated that there was equal tension in the medial and lateral compartments of the knee with the knee in full extension and no additional soft tissue releases were necessary. When 60 pounds of force was applied to the Fuzion device, the extension gap opened to 10 mm. I moved the knee into 90 degrees of flexion, and the Fuzion device was recalibrated by removing a 9 mm erika to allow assessment of the flexion gap. The Fuzion block was placed perpendicular to the resected surface of the tibia and the resected surface of the distal femur. Sixty pounds of traction was applied to match the tension of the extension gap. This externally rotated the femur to 3 degrees. Pins were placed in the 10 mm holes. Appropriate sizing was determined and a 4-in-1 block was placed. This was double checked using the Fuzion device to ensure that it would open to an equal distance as the extension gap when the same amount of force was applied. The Fuzion block was also used to assess flexion gap symmetry. An last wing was used to ensure there would be no anterior notching. Retractors were placed to protect the soft tissues during resection. Captured cuts were performed with a sagittal saw for the anterior and posterior femur as well as the corresponding chamfers.?A laminar engineering designer and retractors were used to expose the posterior knee and the menisci and posterior osteophytes were removed. Trial components were placed and the construct was assessed. Range of motion was assessed by ensuring the knee could achieve full extension and assessing maximum passive knee flexion by elevating the femur and allowing the heel to passively fall towards the buttock. Gap symmetry was assessed by stressing the medial and lateral compartments in both extension and flexion. Laxity was assessed in both extension and flexion and the polyethylene trial was adjusted with shims as necessary. Patellar tracking was assessed with knee flexion. Once satisfied with the construct, I moved forward with implant insertion. Lug holes were drilled in the femur and the tibia was prepped ensuring appropriate sizing and rotation relative to the tibial tubercle.?? The bony ends were irrigated and cement was prepared. Portions of the anterior chamfer cut were utilized as a cement restrictor in the femur. Cement was placed on the entirety of the undersurface of both the tibial and femoral components. Cement was placed onto the dry tibia and pressurized into the cancellous bone. I impacted the tibial component into place. Cement was removed. The tibia was reduced underneath the femur and placed cement onto the dry surface of the resected femur. I placed the femoral component as well as the intended polyethylene trial. Cement was removed from around the femur. I brought the knee into extension and manually pressurized the construct by pushing on the heel while the cement dried. The knee was bathed in a dilute mixture of betadine and peroxide. A mixture of Ropivacaine, Epinephrine and Toradol was infiltrated throughout the soft tissues into structures including the VMO, patellar tendon, quadriceps tendon, MCL and femoral periosteum. The knee was copiously irrigated with pulse lavage. Once cement had been allowed to dry the knee was again trialed. Range of motion was assessed by ensuring the knee could achieve full extension and assessing maximum passive knee flexion by elevating the femur and allowing the heel to passively fall towards the buttock. Gap symmetry was assessed by stressing the medial and lateral compartments in both extension and flexion. Laxity was assessed in both extension and flexion and the polyethylene trial was adjusted with shims as necessary. Patellar tracking was assessed with knee flexion. The tourniquet was let down and the polyethylene trial was removed. I inspected the knee inspected for excess cement and any residual bleeding. Once hemostasis was achieved I inserted the final polyethylene and ensured appropriate engagement of the dovetail locking mechanism.?? The arthrotomy was closed with non-absorbable interrupted suture ensuring that this extended to the top of the arthrotomy. This was backed up with running barbed suture throughout the arthrotomy. The skin was closed with 2-0 and 3-0 sutures. Surgical glue was applied and a soft dressing was placed.?The sponge, instrument and needle counts were reported as being correct at the end of the case. The patient was transferred from the operating table back to a stretcher. The patient emerged from anesthesia without difficulty and was taken to the PACU in a stable condition.? Plan for aftercare: Weightbearing as tolerated Aspirin 81 twice per day for DVT prophylaxis Patient had a GI bleed immediately after his last total knee arthroplasty that I did so it is imperative that he be on proton pump inhibitors during his recovery. We will utilize celecoxib for his anti-inflammatory medication to minimize any GI side effects. Multimodal pain regimen with no IV opioids ordered Anticipate discharge home later today Follow up at [facility] in 2 weeks for wound check Complications: none
--- NOTE | 2025-09-21 18:34 | PM.PN.IH.1 ---
Subjective Subjective Interval history: Jose is recovering uneventfully postoperatively. He was eating dinner when I arrived and reported that his spinal anesthetic was still in effect. We are going to keep him overnight given the time of his arrival up on the hospital floor. He had a severe GI bleed after his last knee replacement so we are going to use Celebrex for his anti-inflammatories and ensure that he is taking full dose pantoprazole. I discussed this with him in detail this evening. We will plan for him to mobilize tomorrow morning and discharge home. Exam Vital Signs (past 8 hours): - 09/21/25 13:55 09/21/25 17:20 09/21/25 17:25 Temperature 97.3 F L 97.5 F L Pulse Rate 57 L 63 65 Respiratory Rate 16 11 L 19 Blood Pressure 140/87 106/53 L 109/71 Pulse Oximetry 97 99 100 Oxygen Delivery Method Room Air Room Air 09/21/25 17:29 09/21/25 17:35 09/21/25 17:43 Temperature 97.1 F L Pulse Rate 64 67 62 Respiratory Rate 17 17 17 Blood Pressure 103/55 L 124/59 L 120/60 Pulse Oximetry 98 99 99 Oxygen Delivery Method Room Air Room Air Room Air 09/21/25 17:55 Temperature 96.6 F L Pulse Rate 68 Respiratory Rate 18 Blood Pressure 129/64 Pulse Oximetry 99 Oxygen Delivery Method Oxygen Delivery Method Room Air Objective Labs Labs: Laboratory Results - last 24 hr 09/21/25 14:02 POC Whole Bld Glucose 82 PFSH Medical History (Updated 09/21/25 @ 07:27 by Lilly Trujillo PA-C) Chronic back pain Hypothyroid Low back pain Radiculopathy, cervicothoracic region Primary osteoarthritis of left knee Bilateral primary osteoarthritis of knee Smoking hx Welcome to Medicare preventive visit History of COVID-19 (2021) HLD (hyperlipidemia) HTN (hypertension) Syncope NSAID long-term use History of duodenal ulcer Rosacea Osteoarthritis of hand, left Disc degeneration, lumbar Other spondylosis with radiculopathy, lumbar region PUD (peptic ulcer disease) Osteoarthritis Foot pain (~2009) Carpal tunnel syndrome (~1993) Surgical History (Updated 09/14/25 @ 09:42 by Ebonie Verdugo RN) H/O wrist surgery (~2015) History of right knee joint replacement History of esophagogastroduodenoscopy (EGD) (01/24/22) History of colonoscopy Anesthesia S/P laparoscopic surgery (~08/2014) Family History Father Heart disease Sjogren's disease Grandfather No problems noted. Mother Alive and well Sister Sjogren's disease Brother Alive and well Other Congestive heart failure Social History household members: spouse Smoking Status: Current every day smoker alcohol intake: never Assessment & Plan Time-Based Coding :: [TOTAL MINUTES] spent with patient and on the chart (including review of chart, obtaining history, exam, reviewing outside data, placing orders, documenting exam and treatment plan, and counseling patient) on [DATE]. Quality VTE Deep Vein Thrombosis/Pulmonary Embolism Present on Admission: No IH PROFEE House Designer Document charge(s): No
[2025-09-21] MEDS: LACTATED RINGERS 1,000 ML 100 ML IV ×2 (18:41→18:44)
[2025-09-21] MEDS: ACETAMINOPHEN 325 MG TABLET 650 MG PO (19:36)
[2025-09-21] MEDS: ASPIRIN EC 81 MG TABLET PO (20:49)
[2025-09-21] MEDS: PREGABALIN 75 MG CAPSULE 225 MG PO (20:49)
[2025-09-21] MEDS: DOCUSATE 100 MG CAPSULE PO (20:49)
[2025-09-21] MEDS: diphenhydrAMINE 25 MG TABLET 50 MG PO (21:37)
[2025-09-21] MEDS: ZOLPIDEM 5 MG TABLET 10 MG PO (21:37)
[2025-09-22 00:45] VITALS: BP 116/75; PULSE 67; RESP 18; O2SAT 97
[2025-09-22] MEDS: ACETAMINOPHEN 325 MG TABLET 650 MG PO (06:31)
--- NOTE | 2025-09-22 06:55 | P.DS_ITS ---
History of Present Illness
--- NOTE | 2025-09-22 06:55 | PM.DS.IH.1 ---
History of Present Illness History of Present Illness Chief complaint: Left Total Knee Arthroplasty Narrative: 65 year old male with a past medical history of gastrointestinal bleeding after right total knee arthroplasty presented to [facility] on 09/21/25 for planned left total knee arthroplasty by Dr. Little. ?This elective procedure was indicated by chronic left knee arthritis that was most symptomatic when standing and walking on concrete floors. On the date of surgery there were no changes of the medical history, medications or allergies. ?Consent had been obtained and the patient was in agreement to proceed with planned surgery. This morning the patient reports he is doing very well with mild pain after surgery. Pain has been controlled with oral medications including tylenol and oxycodone. The patient has not worked with physical therapy. The patient denies chest pain, dyspnea, nausea, emesis, fever and chills. Patient denies new numbness and tingling in the operative leg. He is making urine spontaneously. The patient has all of their post operative medications at home and feels ready to discharge home today. Discharge Providers Provider Discharge Date: 09/22/25 Primary care physician: Antonio Clark MD Consults: 09/21/25 17:55 Consult to Occupational Therapy Evaluate & Treat Comment: WBAT to LLE Physician Instructions: Evaluate and treat Consult to Physical Therapy Evaluate & Treat Comment: WBAT to LLE Physician Instructions: Evaluate and Treat Discharge provider: KRISSY Hull Dr Summary Hospital Course Hospital Course: On 09/22/25 the patient was brought to the operating room for planned left total knee arthroplasty by Dr Little.? There were no known intraoperative complications.? The patient was transferred to the postoperative recovery area and monitored appropriately.? Later the patient was transferred to the acute care unit [facility] for monitoring overnight and physical therapy.? There were no acute events overnight.? On postoperative day 1, the patient's vital signs were stable and they were making urine spontaneously.? The patient denied chest pain, dyspnea, nausea and emesis on postoperative day 1.? The patient was awaiting physical therapy evaluation during orthopedic rounds.? Pain was well-controlled on oral analgesics and the patient was in agreement with preoperative plan to discharge home on postoperative day 1. Exam Vital Signs (past 8 hours): - 09/22/25 00:45 Pulse Rate 67 Respiratory Rate 18 Blood Pressure 116/75 Pulse Oximetry 97 Oxygen Flow Rate 0 Oxygen Delivery Method Room Air Oxygen Flow Rate 0 Narrative Exam Narrative: well developed, well nourished, 65 year old male, no acute distress Dressing is dry and intact to left knee without hematoma or drainage Webril and Reynaldo wrap in place above Aquacell dressing Neurovascular intact to the left lower extremity - knee extension, ankle dorsiflexion and plantar flexion intact. EHL function intact Left calf soft and compressible Objective Labs Labs: Laboratory Results - last 24 hr 09/21/25 14:02 POC Whole Bld Glucose 82 PFSH Medical History (Updated 09/21/25 @ 07:27 by Lilly Trujillo PA-C) Chronic back pain Hypothyroid Low back pain Radiculopathy, cervicothoracic region Primary osteoarthritis of left knee Bilateral primary osteoarthritis of knee Smoking hx Welcome to Medicare preventive visit History of COVID-19 (2021) HLD (hyperlipidemia) HTN (hypertension) Syncope NSAID long-term use History of duodenal ulcer Rosacea Osteoarthritis of hand, left Disc degeneration, lumbar Other spondylosis with radiculopathy, lumbar region PUD (peptic ulcer disease) Osteoarthritis Foot pain (~2009) Carpal tunnel syndrome (~1993) Surgical History (Updated 09/14/25 @ 09:42 by Ebonie Verdugo RN) H/O wrist surgery (~2015) History of right knee joint replacement History of esophagogastroduodenoscopy (EGD) (01/24/22) History of colonoscopy Anesthesia S/P laparoscopic surgery (~08/2014) Family History Father Heart disease Sjogren's disease Grandfather No problems noted. Mother Alive and well Sister Sjogren's disease Brother Alive and well Other Congestive heart failure Social History household members: spouse Smoking Status: Current every day smoker alcohol intake: never Discharge Assessment & Plan Assessment and Plan Plan of Treatment: 65 year old male with a past medical history of gastrointestinal bleeding after right total knee arthroplasty presented to [facility] on 09/21/25 for planned left total knee arthroplasty by Dr. Little. The patient is recovering well with appropriate pain control on oral analgesics and stable vital signs. The patient is comfortable with planned discharge home today on post operative day one to the care of his . Plan:? Weightbearing as tolerated to left lower extremity with front wheeled walker? DVT prophylaxis with 81 mg of aspirin twice daily for 6 weeks Continue multimodal analgesia with Tylenol, celebrex and oxycodone. Avoid Ibuprofen and meloxicam given history of gastrointestinal bleed Bowel regimen as needed? Physical therapy evaluation and treatment today? Follow up with orthopedics 2 weeks post operatively? All post operative medications ordered at pre operative visit? Ice to surgical site as needed? All patient questions were answered and they verbalized agreement with the above plan. Call [facility] with any questions or concerns. Discharge Plan Discharge Plan Provider Discharge Comment: SURGICAL PROCEDURE: Left Total Knee Arthroplasty SURGEON: Dr. Little at [facility] DATE: 09/21/25 ACTIVITY INSTRUCTIONS o You are weight bearing as tolerated to the left lower extremity with a front wheeled walker at all times. We encourage active movement of the toes and ankle every hour while awake to prevent stiffness. o Limit your steps to no more than 1000 steps per day for the first week after surgery to limit swelling. o Do not drive while taking narcotic medications and recovering from your surgery. o If you had a knee replacement, we want you to follow a quiet knee protocol for the first two weeks after surgery. This means: Do not stand for more than 20 minutes at a time Ambulate less than 1,000 steps per day Bend the knee as far as you can with your own muscles and straighten it all the way out by resting your heel on a flat surface and letting your knee hang down Avoid anyone pushing your knee to bend it or straighten it After two weeks we will want you to get more aggressive in your work with physical therapy, but we need to let your body heal first DRESSING CARE o You have an aquacell dressing on top of your incision. This is a waterproof dressing and so you may shower with the dressing so long as the dressing remains clean and dry to the surgical site. Leave the dressing in place until your follow up in the orthopedic clinic. If the dressing becomes saturated or is disrupted call our office for further guidance. o Your dressing is covered with a soft cotton dressing and reynaldo wrap for compression. You may remove these dressings when you return home but should leave the waterproof dressing in place. POST-OPERATIVE INSTRUCTIONS o If you notice fever, chills, night sweats, redness, excessive drainage or bleeding, a sharp increase in pain that persists after taking pain medication, pain in your calf muscles, chest pain or trouble breathing please unwrap the dressing and investigate. Then call the office with findings for further guidance. If it is after regular clinic hours, please seek care in the emergency department. o In the rare case of any severe chest pain and trouble breathing, seek immediate care, do not delay for a call to the clinic. o Use ice to the affected extremity for 15-30 minutes increments as much as possible. Use your ice machine as discussed in your pre-operative visit. o Keep extremity elevated to the level of the heart to reduce swelling. You can use ice on top of the dressing to reduce pain and swelling of the extremity. o You should consume a low sodium diet after surgery to limit swelling. You can gradually resume your normal diet if you have no nausea or vomiting o Physical therapy should begin about 7-10 days after surgery. Your first evaluation should already be scheduled. Call our office if you cannot schedule your therapy in the expected time frame. o Your follow up is already scheduled for 2 weeks after your surgery at the Orthopedic clinic. o You should have no dental procedures for 6 months following your total joint replacement. If there is a dental emergency call our office for guidance. o Please refer to Dr. Little?s educational videos on YouTube for a reference on your post operative care. o Call [facility] at [phone] with any questions or concerns. MEDICATIONS o Please refer to the ?Orthopedic Medication Instructions? sheet provided at your pre-operative visit. Written instructions are provided below as a reminder. ? Take two pills of 500 mg Tylenol (acetaminophen) every 8 hours regardless of pain in a scheduled manner. Do not exceed 3000 mg of Tylenol (from ALL sources, including over the counter combination products) in a 24-hour period due to risk of liver injury. ? Take one pill of oral meloxicam daily. This is NSAID (anti-inflammatory) medication to reduce swelling and pain. ? Take one pill of 5 mg oxycodone by mouth every 4-6 hours as needed for break through pain after taking your regular Tylenol and anti-inflammatory. ? Oxycodone is an opioids, which means it is similar to morphine, heroin or fentanyl. Our goal is for you to take as little of this as possible because the side effects from it can be very severe. If you are able to get through your recovery process taking 10 pills or less please share your story with other patients by logging onto https://[email or web address] and sharing what strategies you used to avoid these dangerous medications. You can also read other patients? stories on that website to get strategies that go above and beyond what we have discussed to help you manage this pain while avoiding opioids. ? Take 200 mg of Colace by mouth every 12 hours for constipation. Narcotic medications such as oxycodone and tramadol as well as anesthesia may increase your risk of constipation after surgery. ? Take 4 mg of Zofran by mouth every 6 hours as needed for uncontrolled nausea or vomiting. If you have persistent nausea and vomiting call our office or seek care in the emergency department. ? Take one pill of 81 mg of aspirin two times daily 12 hours apart for 6 weeks for blood clot prevention. Take this medication regardless of pain. ? Take three pills of 650 mg tranexamic acid once daily for 3 days following surgery. This is to reduce bleeding and swelling in your knee. ? Take a proton pump inhibitor (Pantoprazole) for 6 weeks. NSAIDs like celebrex and aspirin can both cause stomach irritation and that medication can help avoid stomach issues. This will help prevent another gastrointestinal bleed o If you stopped taking a ?biologic? medication that you normally take for an issue such as rheumatoid arthritis or psoriasis prior to surgery, do not restart it until we have seen you back in clinic and confirmed that your wound is healed. o Resume all of your normal home medications tomorrow morning unless specified otherwise by your surgeon. Discharge orders & Medications Discharge Orders: Discharge (Order); Ordered 09/22/25 Ordered By: Leonor Corona Prescriptions: No Action zolpidem 12.5 mg tablet,ext release multiphase 12.5 mg PO BEDTIME PRN (Reason: insomnia) Qty: 90 2RF atorvastatin [Lipitor] 40 mg tablet 40 mg PO BEDTIME Qty: 90 3RF pantoprazole 20 mg tablet,delayed release (DR/EC) 20 mg PO BID Qty: 180 0RF ciclopirox 8 % solution 1 applic topical BEDTIME Qty: 6.6 3RF Rx Instructions: apply to toenail. May take up to 9 months or more to resolve lisinopril 10 mg tablet 10 mg PO DAILY Qty: 90 3RF pregabalin 225 mg capsule 225 mg PO TID Qty: 270 3RF cyclobenzaprine 10 mg tablet See Rx Instructions PO TID PRN (Reason: muscle spasm) Qty: 60 3RF Rx Instructions: 1/2-1 tab PO three times a day PRN; acetaminophen [Arthritis Pain Relief (acetam)] 650 mg Tablet Extended Release 650 mg PO Q8H diphenhydramine-acetaminophen [Acetaminophen PM] 25-500 mg Tablet 4 tab PO BEDTIME oxycodone 5 mg tablet 5 mg PO Q6H PRN (Reason: pain) Qty: 30 0RF pantoprazole 40 mg tablet,delayed release (DR/EC) 40 mg PO DAILY Qty: 30 0RF Patient Comments: Has not started yet docusate sodium [Colace] 100 mg capsule 100 mg PO BID PRN (Reason: constipation) Qty: 60 0RF Follow up/Referrals: Antonio Clark MD [Primary Care Provider, Family Practice] Visit Report/Discharge Packet Print Language: Vietnamese Discharge Data Primary Care Provider: Antonio Clark Attending Provider: Demond Little VTE Deep Vein Thrombosis/Pulmonary Embolism Present on Admission: No IH PROFEE Charge Codes Discharge inpatient/observation: [id number]
[2025-09-22] MEDS: PANTOPRAZOLE DR 40 MG TABLET PO (08:52)
[2025-09-22] MEDS: ASPIRIN EC 81 MG TABLET PO (08:52)
[2025-09-22] MEDS: DOCUSATE 100 MG CAPSULE PO (08:53)
[2025-09-22] MEDS: PREGABALIN 75 MG CAPSULE 225 MG PO (08:53)
--- NOTE | 2025-09-22 09:09 | OT.IPNOTE ---
Spoke to pt regarding OT needs and pt states has all equipment needs and a supportive to assist. Pt has had R TKA 11/22/23. Pt states to just see PT, therefore discharge OT services.
[2025-09-22] MEDS: TRANEXAMIC ACID 1,000 MG VIAL 2000 MG PO (09:15)
--- NOTE | 2025-09-22 09:25 | PT.IIE ---
Current Diagnoses Unilateral primary osteoarthritis, left knee (09/21/25) Surgery Performed Operation Date: 09/21/25 14:45 Actual Procedures p Total Knee Arthroplasty(Left) - Demond Little MD Surgical History (Last Updated 09/14/25 @ 09:42 by Ebonie Verdugo, RN) Anesthesia H/O wrist surgery (~2015) History of colonoscopy History of esophagogastroduodenoscopy (EGD) (01/24/22) History of right knee joint replacement S/P laparoscopic surgery (~08/2014) Medical History (Last Updated 09/14/25 @ 08:47 by Ebonie Verdugo, RN) Bilateral primary osteoarthritis of knee Carpal tunnel syndrome (~1993) Chronic back pain Disc degeneration, lumbar Foot pain (~2009) History of COVID-19 (2021) History of duodenal ulcer HLD (hyperlipidemia) HTN (hypertension) Hypothyroid Low back pain NSAID long-term use Osteoarthritis Osteoarthritis of hand, left Other spondylosis with radiculopathy, lumbar region Primary osteoarthritis of left knee PUD (peptic ulcer disease) Radiculopathy, cervicothoracic region Rosacea Smoking hx Syncope Welcome to Medicare preventive visit Physical Therapy Inpatient Evaluation/Re-Eval M1 PT IP Prior Functional Status Start: 09/22/25 12:28 Freq: NEEDED Status: Active Protocol: Document 09/22/25 09:25 AB (Rec: 09/22/25 12:41 AB [id number]) Medical Review Prior Functional Status Medical History Yes Reviewed Communication able to make needs known Mobility and Gait pt stated that he was independent with all mobilities and ambulation without AD Social History Household Members spouse Living Arrangements House Number of Floors ( One Floor Floors) Number of Stairs To 2 steps with B rails to enter the house Enter/Railing? 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 [employer] History Comment M2 PT-IP Current Condition Start: 09/22/25 12:28 Freq: NEEDED Status: Active Protocol: Document 09/22/25 09:25 AB (Rec: 09/22/25 12:41 AB [id number]) Physical Therapy Current Condition Current Condition Evaluation Date 09/22/25 Treatment Diagnosis s/p L TKA; difficulty in walking Onset Date 09/21/25 M3 PT-IP Subjective Start: 09/22/25 12:28 Freq: NEEDED Status: Active Protocol: Document 09/22/25 09:25 AB (Rec: 09/22/25 12:41 [id number]) Subjective Physical Therapy Visit Type Type Initial Evaluation Visit Start Time 09:25 Visit Stop Time 10:00 Number of RELAY MAN Visits 0 Physical Therapy Visit Comments Patient Comments agreeable to do PT Therapy Pain Assessment Pain When Pain Assessed At Rest Pain Present Pain Present Pain Reported Location left knee Intensity 2 Scale Used Numeric (0 - 10) Pain Behaviors Guarding Pain Management Apply Cold,Distraction,Timing of Activity with Techniques Medications M4 PT-IP Mobility and Gait Start: 09/22/25 12:28 Freq: NEEDED Status: Active Protocol: Document 09/22/25 09:25 AB (Rec: 09/22/25 12:41 [id number]) PT-Bed Mobility Assessment Supine to Sit Supine to Sit Standby Assistance Sit to Supine Sit to Supine Standby Assistance PT-Transfer Assessment Sit to and From Stand Sit to and from Standby Assistance,1 Person Assistance,Use of Upper Stand Extremities Equipment Transfer Assistive Gait Belt,Front Wheeled Walker Device Orthotic/Prosthetic No Devices or Brace: Transfer Ability Level of Assist Standby Assistance,Contact Guard Assistance,1 Person Assistance,Use of Upper Extremities Comments Mobility Comments pt in bed and agreeable to do PT. obtained PLOF and home set up. BP: 121/73. post-op folder provided and reviewed contents. completed supine to sit SBA. able to sit on EOB SBA. no c/o dizziness. sit to stand from EOB CGA and ambulated in room using FWW ~ 30 ft CGA. pt sat on EOB. pt rested. pt agreed to walk in the hallway. sit to stand from EOB CGA and ambulated in the hallway using FWW SBA to occasional CGA. educated on stair climbing. completed up/down steps using B rails SBA. pt ambulated back to his room using FWW SBA . pt completed sit to supine SBA. positioned pt in bed . ice packs provided. call light and table placed within reach. Gait Assessment Gait Gait Assistance Standby Assistance,Contact Guard Assist Required: Distance (Feet) 125 Able to Maintain Yes Weight Bearing Status During Gait Assistive Devices Assistive Device Gait Belt,Front Wheeled Walker Orthotic/Prosthetic No Devices or Brace: Gait Deviations General Gait Pattern Antalgic,Decreased Stride Length,Decreased Feet Clearance Factors Limiting Gait Function Factors Limiting Decreased Activity Tolerance,Decreased Strength, Gait Function Difficulty Following Directions,Limited Range of Motion ,Pain,Poor Balance,Poor Safety Awareness Stair Climbing Assessment Evaluation Level of Assist On Standby Assistance Stairs Devices Stair Climbing Left Railing,Right Railing Assistive Devices Technique/Endurance Stair Climbing Ascend and Descend Direction Stair Climbing Step to Step Technique Number of Steps 3 Climbed Query Text: Stair Climbing Set # 1 Repetitions (reps) PT-Balance Assessment Sitting Balance and Reactions Static Sitting Normal Balance Ability Dynamic Sitting Good Balance Ability Standing Balance and Reactions Static Standing Good Balance Ability Dynamic Standing Fair Balance Ability Device Used FWW M5 PT-IP Objective Assessments Start: 09/22/25 12:28 Freq: NEEDED Status: Active Protocol: Document 09/22/25 09:25 AB (Rec: 09/22/25 12:41 [id number]) Orientation Orientation/Cognition Level of Alertness Alert Orientation Name,Place,Situation Language Function No Deficits Noted Ability Safety Awareness Understands Safety Issues Memory Description No Deficits Noted Gross Range of Motion Lower Extremity ROM Assessment Left Impaired Impairments L knee flexion: ~ 30 deg Strength Lower Extremity Strength Assessment Left Impaired Hip 4-/5 Knee 4-/5 Muscle Tone Muscle Tone WNL Yes M6 PT-IP Treatment Start: 09/22/25 12:28 Freq: NEEDED Status: Active Protocol: Document 09/22/25 09:25 AB (Rec: 09/22/25 12:41 [id number]) Physical Therapy Treatment Exercises Exercises Heel Slides Education Education Provided Precautions,Weight Bearing Status,Post-Op Packet,Safety M7 PT-IP Assessment and Plan Start: 09/22/25 12:28 Freq: NEEDED Status: Active Protocol: Document 09/22/25 09:25 (Rec: 09/22/25 12:41 [id number]) PT Summary Assessment and Plan Potential Rehabilitation Good Potential Status of Condition Stable at Evaluation Summary Impairments Pain,ROM,Strength,Balance,Coordination,Sensation,Tone, Cognition,Bed Mobility,Transfers,Gait,Activity Tolerance Assessment Summary pt is a 65 y/o M s/p L TKA POD 1. pt is WBAT on LLE. pt requiring SBA to CGA with mobilities using FWW and plans to go home and spouse to assist if needed. pt has outpt PT set up. pt may go home when medically stable . Goals Bed Mobility Goal Independent Transfer Goal Independent,Front Wheeled Walker Gait Goal Independent,Front Wheel Walker Gait Distance 200 Other Goals up/down 2 steps B rails mod I Days to Meet Goals 5 Frequency of Treatment Frequency Of Twice a Day Treatment Treatment Plan Physical Therapy Bed Mobility Training,Transfer Training,Gait Training, Treatment Plan Therapeutic Exercise,Balance Retraining,Post Op Education,Discharge Planning,Hot or Cold Pack, Neuromuscular Re-ed,Coordination Retraining,Manual Therapy Weight Bearing Status Weight Bearing Weight Bear as Tolerated Status Allowed Weight LLE WBAT Bearing Amount ( enter % or #) (%) Recommendations To Nursing Amount of Assist 1 Person Assist Needed Discharge Recommendations PT Discharge Home with Assistance,Outpatient PT Recommendations Transportation Needs Private Vehicle at Discharge - PT assist 1
[2025-09-22 09:40] VITALS: BP 152/85; PULSE 83; RESP 16; TEMP 36.6; O2SAT 93
[2025-09-22] MEDS: INFLUENZA HD VACCINE 0.5 ML SYRINGE IM (10:14)
--- NOTE | 2025-09-22 10:55 | PC.NURSE ---
Pt is dressed and ready for discharge home with Spouse. IV has been removed. Went over d/c instructions with Pt-discussed d/c meds, time of last dose, reviewed stroke education, s/s of infection, showering, and follow up appointment. Reminded Pt not to drive while taking narcotics and to drink plenty of fluids to prevent constipation. Also reminded Pt not to exceed 3000mg of Acetaminophen in 24hours to prevent liver damage. Pt denied further questions and will be taken out via w/c by [employer] to POV with Spouse and all belongings.
== END 2025-09-22 11:57 | disposition home or self-care (01) ==
LOC: OR 12:04 → AC 13:23
PROVIDERS: PCP Family Medicine; Referring Provider Orthopaedic Surgery Adult Reconstructive Orthopaedic Surgery; Visit Provider Orthopaedic Surgery Adult Reconstructive Orthopaedic Surgery
PROC: 0SRD0JZ Replacement of Left Knee Joint with Synthetic Substitute, Open Approach (ICD-10-PCS; CPT 27447; principal; 2025-09-21 14:45)
DX: M17.12 Unilateral primary osteoarthritis, left knee (principal); Z23 Encounter for immunization; M25.762 Osteophyte, left knee
CPT/HCPCS: 27447; 0054T; 73560; 82962; 90471; 90662; 97116; 97161; 97530; C1776; C1713; J0689; J1100; J1885; J2405; J2704; J7120